=== PATIENT | male | born 1960 | race African-American/Black ===

== ENCOUNTER 2016-07-28 10:12 | Inpatient (IN) | payer OTHER ==
--- NOTE | 2016-07-28 12:19 | HP ---
CIWA Score - CIWA Score Nausea/Vomitin-No Nausea/No Vomiting Muscle Tremors: 3 Anxiety: 5 Agitation: 4-Moderately Restless Paroxysmal Sweats: 1-Minimal Palms Moist Orientation: 0-Oriented Tacttile Disturbances: 3-Moderate Itch/Numb/Burn Auditory Disturbances: 0-None Visual Disturbances: 0-None Headache: 0-None Present CIWA-Ar Total Score: 16 Admission ROS S - HPI Chief Complaint: DETOX TX FOR ALCOHOL DEPENDENCE Allergies/Adverse Reactions: Allergies Allergy/AdvReac Type Severity Reaction Status Date / Time No Known Drug Allergies Allergy Verified 07/28/16 11:30 ugandan nuts Allergy Intermediate Swelling Uncoded 07/28/16 11:30 History of Present Illness: 56 Y/O AA/MALE WITH A HX OF ALCOHOL AND COCAINE DEPENDENCE SEEKING DETOX TX. Exam Limitations: No Limitations - Ebola screening Have you traveled outside of the country in the last 21 days: No Have you had contact with anyone from an Ebola affected area: No Have you been sick,other than usual withdrawal symptoms: No Do you have a fever: No - Review of Systems Constitutional: Chills, Loss of Appetite, Night Sweats EENT: reports: Blurred Vision, Tearing, Nose Congestion, Dental Problems ( MISSING TEETH) Respiratory: reports: No Symptoms reported Cardiac: reports: Lightheadedness GI: reports: Constipated, Diarrhea, Nausea, Vomiting : reports: No Symptoms Reported Musculoskeletal: reports: Back Pain, Joint Pain, Muscle Pain Integumentary: reports: No Symptoms Reported Neuro: reports: Headache, Tremors, Unsteady Gait, Dizziness Endocrine: reports: No Symptoms Reported Hematology: reports: No Symptoms Reported Psychiatric: reports: Orientated x3, Anxious, Depressed Other Systems: Reviewed and Negative Patient History - Patient Medical History Hx Anemia: No Hx Asthma: No Hx Chronic Obstructive Pulmonary Disease (COPD): No Hx Cardiac Disorders: No Hx Hypertension: Yes (ON LISINOPRIL) Hx Hypercholesterolemia: No HX Cerebrovascular Accident: No Hx Seizures: No Hx Diabetes: No Hx Gastrointestinal Disorders: No Hx Genitourinary Disorders: Yes (GONORRHEA IN 1986 WITH TX) Hx Sexually Transmitted Disorders: No Hx Renal Disease (ESRD): No Hx Thyroid Disease: No Hx Human Immunodeficiency Virus (HIV): Yes (SINCE 01/21/2003;KALETRA AND TRUVADA ) Hx Hepatitis C: No Hx Depression: Yes (ON MED) Hx Suicide Attempt: No (DENIES) Hx Schizophrenia: Yes (ON SEROQUEL) - Patient Surgical History Past Surgical History: No Hx Neurologic Surgery: No Hx Cataract Extraction: No Hx Cardiac Surgery: No Hx Lung Surgery: No Hx Breast Surgery: No Hx Breast Biopsy: No Hx Abdominal Surgery: No Hx Appendectomy: No Hx Cholecystectomy: No Hx Genitourinary Surgery: No Hx Orthopedic Surgery: No Anesthesia Reaction: No - PPD History Previous Implant?: Yes Implanted On Prior [facility] Admission?: Yes Date: 04/14/14 PPD to be Administered?: Yes - Reproductive History Patient is a Female of Child Bearing Age (11 -55 yrs old): No (MALE) - Smoking Cessation Smoking history: Current every day smoker Have you smoked in the past 12 months: Yes Aproximately how many cigarettes per day: 12 Hx Chewing Tobacco Use: No Initiated information on smoking cessation: Yes 'Breaking Loose' booklet given: 07/28/16 - Substance & Tx. History Hx Alcohol Use: Yes (RUM/VODKA) Hx Substance Use: Yes (COCAINE) Substance Use Type: Alcohol, Cocaine - Substances Abused Alcohol Frequency: Daily Amount used: 2-3 PTS Age of first use: 15 Date of Last Use: 07/27/16 Cocaine Route: Smoking Frequency: Daily Amount used: $150-200 Age of first use: 24 Date of Last Use: 07/27/16 Family Disease History - Family Disease History Family Disease History: Other: Grandparent (HTN) Admission Physical Exam BHS - Vital Signs Vital Signs: Vital Signs - 24 hr 07/28/16 07/28/16 10:45 10:50 Temperature 97.2 F L 98.6 F Pulse Rate 84 92 H Respiratory 18 18 Rate Blood Pressure 128/84 130/90 - Physical General Appearance: Yes: Moderate Distress, Irritable, Anxious HEENTM: Yes: EOMI, Normocephalic, LUZMA, Pharynx Normal Respiratory: Yes: Chest Non-Tender, Lungs Clear, Normal Breath Sounds, No Respiratory Distress Neck: Yes: Supple, Trachea in good position Breast: Yes: Breast Exam Deferred Cardiology: Yes: Regular Rhythm, Regular Rate, S1, S2 Abdominal: Yes: Normal Bowel Sounds, Non Tender, Soft Genitourinary: Yes: Other (N/C) Back: Yes: Within Normal Limits Musculoskeletal: Yes: full range of Motion, Gait Steady Extremities: Yes: Normal Range of Motion, Non-Tender Neurological: Yes: agency service 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 II-XII NML intact, Fully Oriented, Alert Integumentary: Yes: Dry, Warm Lymphatic: Yes: Within Normal Limits - Diagnostic (1) HIV (human immunodeficiency virus infection) Current Visit: Yes Status: Chronic (2) Nicotine dependence Current Visit: Yes Status: Acute Qualifiers: Nicotine product type: cigarettes Substance use status: uncomplicated Qualified Code(s): F17.210 - Nicotine dependence, cigarettes, uncomplicated (3) Eczema Current Visit: Yes Status: Chronic (4) Essential (primary) hypertension Current Visit: Yes Status: Chronic (5) Alcohol dependence with uncomplicated withdrawal Current Visit: Yes Status: Acute (6) Cocaine dependence, uncomplicated Current Visit: Yes Status: Acute Cleared for Admission [facility] - Detox or Rehab [facility] Level of Care: Medically Managed Detox Regimen/Protocol: Librium [facility] Breath Alcohol Content Breath Alcohol Content: 0 Urine Drug Screen - Results Drug Screen Negative: No Urine Drug Screen Results: OPI-Opiates, BZO-Benzodiazepines, MTD-Methadone, OXY- Oxycodone
[2016-07-28] MEDS ORDERED: MAG HYDROX/AL HYDROX/SIMETH 30 ML UNIT-DOSE CUP PO PRN (12:28)
[2016-07-28] MEDS ORDERED: diphenhydrAMINE HCL 50 MG CAPSULE PO PRN (12:28)
[2016-07-28] MEDS ORDERED: LOPERAMIDE HCL 2 MG CAPSULE PO PRN (12:28)
[2016-07-28] MEDS ORDERED: NICOTINE POLACRILEX 4 MG GUM BUC PRN (12:28)
[2016-07-28] MEDS ORDERED: hydrOXYzine PAMOATE 25 MG CAPSULE (FP) PO PRN (12:28)
[2016-07-28] MEDS ORDERED: ACETAMINOPHEN 325 MG TABLET (FP) PO PRN (12:28)
[2016-07-28] MEDS ORDERED: IBUPROFEN 400 MG TABLET (FP) PO PRN (12:28)
[2016-07-28] MEDS ORDERED: MENTHOL/PHENOL 1 EACH UD MM PRN (12:28)
[2016-07-28] MEDS ORDERED: guaiFENesin/D-METHORPHAN HB 10 ML UNIT-DOSE CUPS PO PRN (12:28)
[2016-07-28] MEDS ORDERED: MAGNESIUM CITRATE 300 ML BOTTLE PO PRN (12:28)
[2016-07-28] MEDS ORDERED: chlordiazePOXIDE HCL 25 MG CAPSULE PO PRN (12:28)
[2016-07-28] MEDS ORDERED: MAGNESIUM HYDROX 2400MG/30ML ORAL SUSPENSION 30 ML CUP PO PRN (12:28)
[2016-07-28] MEDS ORDERED: P-EPHED 60MG/TRIPROLIDI 2.5MG TABLET PO PRN (12:28)
[2016-07-28] MEDS ORDERED: chlordiazePOXIDE HCL 25 MG CAPSULE PO ONE (14:32)
[2016-07-28] MEDS: LISINOPRIL 10 MG TABLET (FP) PO SCH (15:14)
[2016-07-28] MEDS: FLUOCINONIDE 0.05% TOP OINT (60 GM TUBE) TP SCH ×2 (15:14→22:23)
[2016-07-28] MEDS: RITONAVIR/LOPINAVIR 50MG/200MG 1 COMBO TABLET PO SCH ×2 (15:15→22:23)
[2016-07-28] MEDS: EMTRICITABINE 200MG/TENOFOVIR 300MG PO SCH (15:15)
[2016-07-28] MEDS: NICOTINE 21 MG/24 HOURS TOPICAL PATCH TD SCH (15:15)
[2016-07-28 15:36] VITALS: BMI 30.8
--- NOTE | 2016-07-28 15:37 | CONSULT ---
[facility] Psychiatric Consult - Data Date of interview: 07/28/16 Admission source: [facility] Identifying data: Readmission to [facility] for this 56 y/o AA male,from descent,seeking detox treatment for alcohol,cocaine and phencyclidine dependence.Patient is single without children,domiciled,unemployed and supported on [employer] funds. Substance Abuse History: - Smoking Cessation. Smoking history: Current every day smoker. Have you smoked in the past 12 months: Yes. Aproximately how many cigarettes per day: 12. Hx Chewing Tobacco Use: No. Initiated information on smoking cessation: Yes. 'Breaking Loose' booklet given: 07/28/16. - Substance & Tx. History. Hx Alcohol Use: Yes (RUM/VODKA). Hx Substance Use: Yes (COCAINE ). Substance Use Type: Alcohol, Cocaine. - Substances Abused. Alcohol. Frequency: Daily. Amount used: 2-3 PTS. Age of first use: 15. Date of Last Use: 07/27/16. Cocaine. Route: Smoking. Frequency: Daily. Amount used: $ 150-200. Age of first use: 24. Date of Last Use: 07/27/16. Confirmed by patient. Medical History: HIV infection since 2002 (on ART agents),hypertension and a history of treatment for gonorrhea. Psychiatric History: No history of psychiatric hospitalizations but current OPD care at the [facility] mental health clinic.Mr Ott endorses the diagnosis of Schizoaffective Disorder.Prescribed seroquel 50 mg/hs.Patient denies history of suicide attempts. Physical/Sexual Abuse/Trauma History: Patient denies. Additional Comment: Urine Drug Screen Results: OPI-Opiates, BZO-Benzodiazepines , MTD-Methadone, OXY-Oxycodone.Noted. Mental Status Exam - Mental Status Exam Alert and Oriented to: Time, Place, Person Cognitive Function: Good Patient Appearance: Well Groomed (short,overweight ; left ear : two metallic rings) Mood: Hopeful, Euthymic Affect: Appropriate, Normal Range Patient Behavior: Fatigued, Appropriate (friendly), Cooperative Speech Pattern: Clear, Appropriate Voice Loudness: Normal Thought Process: Goal Oriented Thought Disorder: Not Present Hallucinations: Denies Suicidal Ideation: Denies Homicidal Ideation: Denies Insight/Judgement: Poor Appetite: Fair Muscle strength/Tone: Normal Gait/Station: Normal Psychiatric Findings - Problem List ([place] 1, 2,3) (1) Alcohol dependence with uncomplicated withdrawal Current Visit: Yes Status: Acute (2) Cocaine dependence, uncomplicated Current Visit: Yes Status: Acute (3) Nicotine dependence Current Visit: Yes Status: Acute Qualifiers: Nicotine product type: cigarettes Substance use status: uncomplicated Qualified Code(s): F17.210 - Nicotine dependence, cigarettes, uncomplicated (4) Substance induced mood disorder Current Visit: Yes Status: Acute (5) Schizoaffective disorder Current Visit: Yes Status: Chronic Comment: Self-report. (6) Eczema Current Visit: Yes Status: Chronic (7) Essential (primary) hypertension Current Visit: Yes Status: Chronic (8) HIV (human immunodeficiency virus infection) Current Visit: Yes Status: Chronic - Initial Treatment Plan Initial Treatment Plan: Psychoeducation.Detoxification.Patient requests that seroquel be held at this time.Reason : fear of oversedation and falls.He maintains his decision in spite of this marketing underwriter's encouragement and reassurance.Observation.
[2016-07-28] MEDS: chlordiazePOXIDE HCL 25 MG CAPSULE PO SCH ×2 (17:17→22:23)
[2016-07-28 18:15] LABS: URINE APPEARANCE CLEAR; URINE BILIRUBIN NEGATIVE (NEGATIVE); URINE BLOOD NEGATIVE (NEGATIVE); URINE COLOR YELLOW; URINE GLUCOSE (UA) NEGATIVE (NEGATIVE); URINE KETONE NEGATIVE (NEGATIVE); URINE LEUK ESTERASE NEGATIVE (NEGATIVE); URINE NITRITE NEGATIVE (NEGATIVE); URINE PROTEIN 2+ (NEGATIVE); URINE UROBILINOGEN NEGATIVE E.U./dl (0.2-1.0)
[2016-07-28 18:19] LABS: URINE MUCUS RARE; URINE RBC 2 /hpf (0-3); URINE WBC 5 /hpf (3-5)
[2016-07-28] MEDS: THIAMINE HCL 100 MG TABLET (FP) PO SCH (22:23)
[2016-07-29] MEDS: chlordiazePOXIDE HCL 25 MG CAPSULE PO SCH ×4 (05:43→22:15)
[2016-07-29 10:18] LABS: MCH 31.6 pg (25.7-33.7); MEAN CELL VOLUME 95.8 fl (80-96); MEAN PLT VOLUME 9.8 fl (7.5-11.1); PLATELET COUNT 257 K/MM3 (134-434); RDW 13.3 % (11.9-15.9); WHITE BLOOD COUNT 9.1 K/mm3 (4.0-10.0)
[2016-07-29] MEDS: LISINOPRIL 10 MG TABLET (FP) PO SCH (10:35)
[2016-07-29] MEDS: RITONAVIR/LOPINAVIR 50MG/200MG 1 COMBO TABLET PO SCH ×2 (10:35→22:15)
[2016-07-29] MEDS: EMTRICITABINE 200MG/TENOFOVIR 300MG PO SCH (10:35)
[2016-07-29] MEDS: FLUOCINONIDE 0.05% TOP OINT (60 GM TUBE) TP SCH ×2 (10:35→22:15)
[2016-07-29] MEDS: PRENATAL VITAMINS W/ FOLIC ACID TABLET (FP) PO SCH (10:35)
[2016-07-29] MEDS: NICOTINE 21 MG/24 HOURS TOPICAL PATCH TD SCH (10:37)
[2016-07-29 11:09] LABS: ALBUMIN 3.7 g/dl (3.4-5.0); BILIRUBIN,TOTAL 0.4 mg/dL (0.2-1.0); CALCIUM 9.6 mg/dL (8.5-10.1); COCKROFT - GAULT 79.23; CREATININE 1.3 mg/dL (0.7-1.3); TOT PROT 7.3 g/dl (6.4-8.2)
--- NOTE | 2016-07-29 12:22 | PN ---
S CIWA - CIWA Score Nausea/Vomitin-No Nausea/No Vomiting Muscle Tremors: 4-Moderate,w/Arms Extend Anxiety: 4-Mod. Anxious/Guarded Agitation: 3 Paroxysmal Sweats: 3 Orientation: 0-Oriented Tacttile Disturbances: 0-None Auditory Disturbances: 0-None Visual Disturbances: 0-None Headache: 0-None Present CIWA-Ar Total Score: 14 BHS Progress Note (SOAP) Subjective: Anxiety,tremors,sweating,interrupted sleep,restless Objective: 07/29/16 12:21 Vital Signs - 8 hr 07/29/16 07/29/16 06:25 09:28 Temperature 95.9 F L 97.5 F L Pulse Rate 60 67 Respiratory 16 20 Rate Blood Pressure 130/84 148/85 Laboratory Tests 07/28/16 07/29/16 07/29/16 14:00 06:00 06:00 WBC 9.1 RBC 5.16 Hgb 16.3 D Hct 49.5 H MCV 95.8 MCHC 33.0 RDW 13.3 Plt Count 257 D MPV 9.8 Sodium 141 Potassium 3.9 Chloride 104 Carbon Dioxide 26 Anion Gap 11 BUN 14 Creatinine 1.3 D Creat Clearance w eGFR 56.90 Random Glucose 101 Calcium 9.6 Total Bilirubin 0.4 AST 25 ALT 35 D Alkaline Phosphatase 131 H D Total Protein 7.3 Albumin 3.7 D Urine Color Yellow Urine Appearance Clear Urine pH 5.0 Ur Specific [place] 1.021 Urine Protein 2+ H Urine Glucose (UA) Negative Urine Ketones Negative Urine Blood Negative Urine Nitrite Negative Urine Bilirubin Negative Urine Urobilinogen Negative Ur Leukocyte Esterase Negative Urine RBC 2 Urine WBC 5 Ur Epithelial Cells Rare Urine Mucus Rare labs noted Assessment: 07/29/16 12:22 Withdrawal sx. Plan: Continue detox
[2016-07-29] MEDS: THIAMINE HCL 100 MG TABLET (FP) PO SCH (22:15)
[2016-07-30] MEDS: chlordiazePOXIDE HCL 25 MG CAPSULE PO SCH ×2 (06:02→10:55)
--- NOTE | 2016-07-30 08:28 | EKG ---
Test Reason : Blood Pressure : / mmHG Vent. Rate : 077 BPM Atrial Rate : 077 BPM P-R Int : 168 ms QRS Dur : 088 ms QT Int : 356 ms P-R-T Axes : 073 070 052 degrees QTc Int : 402 ms NORMAL SINUS RHYTHM NORMAL ECG NO PREVIOUS ECGS AVAILABLE Confirmed by KJ TREVINO MD ([id number]) on 07/30/2016 8:27:42 AM Referred By: Confirmed By:KJ TREVINO MD
[2016-07-30] MEDS: PRENATAL VITAMINS W/ FOLIC ACID TABLET (FP) PO SCH (10:52)
[2016-07-30] MEDS: LISINOPRIL 10 MG TABLET (FP) PO SCH (10:53)
[2016-07-30] MEDS: RITONAVIR/LOPINAVIR 50MG/200MG 1 COMBO TABLET PO SCH ×2 (10:53→22:18)
[2016-07-30] MEDS: FLUOCINONIDE 0.05% TOP OINT (60 GM TUBE) TP SCH ×2 (10:53→22:18)
[2016-07-30] MEDS: EMTRICITABINE 200MG/TENOFOVIR 300MG PO SCH (10:53)
[2016-07-30] MEDS: NICOTINE 21 MG/24 HOURS TOPICAL PATCH TD SCH (10:54)
--- NOTE | 2016-07-30 13:26 | PN ---
S CIWA - CIWA Score Nausea/Vomitin Muscle Tremors: 3 Anxiety: 4-Mod. Anxious/Guarded Agitation: 3 Paroxysmal Sweats: 3 Orientation: 0-Oriented Tacttile Disturbances: 2-Mild Itch/Numbness/Burn Auditory Disturbances: 0-None Visual Disturbances: 2-Mild Sensitivity Headache: 0-None Present CIWA-Ar Total Score: 19 BHS Progress Note (SOAP) Subjective: Tremors, Sweating, Stomach Cramping. Objective: PT. A & O X 3, OBSERVED AMBULATING ON UNIT. PT. DENIES CHEST PAIN. 07/30/16 13:24 Vital Signs Temperature 97.7 F 07/30/16 09:54 Pulse Rate 85 07/30/16 09:54 Respiratory Rate 20 07/30/16 09:54 Blood Pressure 155/91 07/30/16 09:54 O2 Sat by Pulse Oximetry (%) Laboratory Last Values WBC 9.1 K/mm3 (4.0-10.0) 07/29/16 06:00 RBC 5.16 M/mm3 (4.00-5.60) 07/29/16 06:00 Hgb 16.3 GM/dL (11.7-16.9) D 07/29/16 06:00 Hct 49.5 % (35.4-49) H 07/29/16 06:00 MCV 95.8 fl (80-96) 07/29/16 06:00 MCHC 33.0 g/dl (32.0-35.9) 07/29/16 06:00 RDW 13.3 % (11.9-15.9) 07/29/16 06:00 Plt Count 257 K/MM3 (134-434) D 07/29/16 06:00 MPV 9.8 fl (7.5-11.1) 07/29/16 06:00 Sodium 141 mmol/L (136-145) 07/29/16 06:00 Potassium 3.9 mmol/L (3.5-5.1) 07/29/16 06:00 Chloride 104 mmol/L (98-107) 07/29/16 06:00 Carbon Dioxide 26 mmol/L (21-32) 07/29/16 06:00 Anion Gap 11 (8-16) 07/29/16 06:00 BUN 14 mg/dL (7-18) 07/29/16 06:00 Creatinine 1.3 mg/dL (0.7-1.3) D 07/29/16 06:00 Creat Clearance w eGFR 56.90 (>60) 07/29/16 06:00 Random Glucose 101 mg/dL (74-106) 07/29/16 06:00 Calcium 9.6 mg/dL (8.5-10.1) 07/29/16 06:00 Total Bilirubin 0.4 mg/dL (0.2-1.0) 07/29/16 06:00 AST 25 U/L (15-37) 07/29/16 06:00 ALT 35 U/L (12-78) D 07/29/16 06:00 Alkaline Phosphatase 131 U/L (45-117) H D 07/29/16 06:00 Total Protein 7.3 g/dl (6.4-8.2) 07/29/16 06:00 Albumin 3.7 g/dl (3.4-5.0) D 07/29/16 06:00 Urine Color Yellow 07/28/16 14:00 Urine Appearance Clear 07/28/16 14:00 Urine pH 5.0 (5.0-8.0) 07/28/16 14:00 Ur Specific [place] 1.021 (1.001-1.035) 07/28/16 14:00 Urine Protein 2+ (NEGATIVE) H 07/28/16 14:00 Urine Glucose (UA) Negative (NEGATIVE) 07/28/16 14:00 Urine Ketones Negative (NEGATIVE) 07/28/16 14:00 Urine Blood Negative (NEGATIVE) 07/28/16 14:00 Urine Nitrite Negative (NEGATIVE) 07/28/16 14:00 Urine Bilirubin Negative (NEGATIVE) 07/28/16 14:00 Urine Urobilinogen Negative E.U./dl (0.2-1.0) 07/28/16 14:00 Ur Leukocyte Esterase Negative (NEGATIVE) 07/28/16 14:00 Urine RBC 2 /hpf (0-3) 07/28/16 14:00 Urine WBC 5 /hpf (3-5) 07/28/16 14:00 Ur Epithelial Cells Rare /hpf (FEW) 07/28/16 14:00 Urine Mucus Rare 07/28/16 14:00 RPR Titer Nonreactive (NONREACTIVE) 07/29/16 06:00 LABS NOTED. 07/30/16 13:26 Assessment: 07/30/16 13:25 WITHDRAWAL SYMPTOMS. Plan: CONTINUE DETOX. ADVISED PATIENT TO FOLLOW-UP WITH [employer] FUNCTIONAL TESTER / REHAB MEDICAL PROVIDER AFTER DISCHARGE FROM DETOX [facility] GENERAL MEDICAL ASSESSMENT AND FOR ABNORMAL ADMISSION LAB VALUES.
[2016-07-30] MEDS: chlordiazePOXIDE 5 MG CAPSULE PO SCH ×2 (17:20→22:19)
[2016-07-30] MEDS: THIAMINE HCL 100 MG TABLET (FP) PO SCH (22:19)
[2016-07-31] MEDS: chlordiazePOXIDE 5 MG CAPSULE PO SCH ×2 (05:51→10:46)
[2016-07-31] MEDS: LISINOPRIL 10 MG TABLET (FP) PO SCH (10:46)
[2016-07-31] MEDS: RITONAVIR/LOPINAVIR 50MG/200MG 1 COMBO TABLET PO SCH ×2 (10:46→22:31)
[2016-07-31] MEDS: PRENATAL VITAMINS W/ FOLIC ACID TABLET (FP) PO SCH (10:47)
[2016-07-31] MEDS: NICOTINE 21 MG/24 HOURS TOPICAL PATCH TD SCH (10:47)
[2016-07-31] MEDS: EMTRICITABINE 200MG/TENOFOVIR 300MG PO SCH (10:47)
[2016-07-31] MEDS: FLUOCINONIDE 0.05% TOP OINT (60 GM TUBE) TP SCH ×2 (10:47→22:31)
--- NOTE | 2016-07-31 15:09 | PN ---
BHS Progress Note (SOAP) Subjective: Sweating,interrupted sleep,restless Objective: 07/31/16 15:08 Vital Signs - 8 hr 07/31/16 09:18 Temperature 97.0 F L Pulse Rate 72 Respiratory 18 Rate Blood Pressure 116/81 Laboratory Last Values WBC 9.1 K/mm3 (4.0-10.0) 07/29/16 06:00 RBC 5.16 M/mm3 (4.00-5.60) 07/29/16 06:00 Hgb 16.3 GM/dL (11.7-16.9) D 07/29/16 06:00 Hct 49.5 % (35.4-49) H 07/29/16 06:00 MCV 95.8 fl (80-96) 07/29/16 06:00 MCHC 33.0 g/dl (32.0-35.9) 07/29/16 06:00 RDW 13.3 % (11.9-15.9) 07/29/16 06:00 Plt Count 257 K/MM3 (134-434) D 07/29/16 06:00 MPV 9.8 fl (7.5-11.1) 07/29/16 06:00 Sodium 141 mmol/L (136-145) 07/29/16 06:00 Potassium 3.9 mmol/L (3.5-5.1) 07/29/16 06:00 Chloride 104 mmol/L (98-107) 07/29/16 06:00 Carbon Dioxide 26 mmol/L (21-32) 07/29/16 06:00 Anion Gap 11 (8-16) 07/29/16 06:00 BUN 14 mg/dL (7-18) 07/29/16 06:00 Creatinine 1.3 mg/dL (0.7-1.3) D 07/29/16 06:00 Creat Clearance w eGFR 56.90 (>60) 07/29/16 06:00 Random Glucose 101 mg/dL (74-106) 07/29/16 06:00 Calcium 9.6 mg/dL (8.5-10.1) 07/29/16 06:00 Total Bilirubin 0.4 mg/dL (0.2-1.0) 07/29/16 06:00 AST 25 U/L (15-37) 07/29/16 06:00 ALT 35 U/L (12-78) D 07/29/16 06:00 Alkaline Phosphatase 131 U/L (45-117) H D 07/29/16 06:00 Total Protein 7.3 g/dl (6.4-8.2) 07/29/16 06:00 Albumin 3.7 g/dl (3.4-5.0) D 07/29/16 06:00 Urine Color Yellow 07/28/16 14:00 Urine Appearance Clear 07/28/16 14:00 Urine pH 5.0 (5.0-8.0) 07/28/16 14:00 Ur Specific [place] 1.021 (1.001-1.035) 07/28/16 14:00 Urine Protein 2+ (NEGATIVE) H 07/28/16 14:00 Urine Glucose (UA) Negative (NEGATIVE) 07/28/16 14:00 Urine Ketones Negative (NEGATIVE) 07/28/16 14:00 Urine Blood Negative (NEGATIVE) 07/28/16 14:00 Urine Nitrite Negative (NEGATIVE) 07/28/16 14:00 Urine Bilirubin Negative (NEGATIVE) 07/28/16 14:00 Urine Urobilinogen Negative E.U./dl (0.2-1.0) 07/28/16 14:00 Ur Leukocyte Esterase Negative (NEGATIVE) 07/28/16 14:00 Urine RBC 2 /hpf (0-3) 07/28/16 14:00 Urine WBC 5 /hpf (3-5) 07/28/16 14:00 Ur Epithelial Cells Rare /hpf (FEW) 07/28/16 14:00 Urine Mucus Rare 07/28/16 14:00 RPR Titer Nonreactive (NONREACTIVE) 07/29/16 06:00 labs noted Assessment: 07/31/16 15:09 Withdrawal sx. Plan: Continue detox
[2016-07-31] MEDS: chlordiazePOXIDE HCL 10 MG CAPSULE PO SCH ×2 (17:56→22:31)
[2016-07-31] MEDS: THIAMINE HCL 100 MG TABLET (FP) PO SCH (22:31)
[2016-08-01] MEDS: chlordiazePOXIDE HCL 10 MG CAPSULE PO SCH (05:30)
[2016-08-01 06:29] VITALS: BP 118/82; PULSE 74; TEMP 96.2
--- NOTE | 2016-08-01 08:59 | DS ---
[facility] Detox Discharge Summary Admission Date: 07/28/16 Discharge Date: 08/01/16 - History Present History: Alcohol Dependence, Cocaine Dependence Additional Comments: DETOX COMPLETED.ALERT O X 3. NAD. Pertinent Past History: HIV+ HTN ECZEMA - Physical Exam Results Vital Signs: Vital Signs Temperature 96.2 F L 08/01/16 06:29 Pulse Rate 74 08/01/16 06:29 Respiratory Rate 16 08/01/16 06:29 Blood Pressure 118/82 08/01/16 06:29 O2 Sat by Pulse Oximetry (%) Pertinent Admission Physical Exam Findings: WITHDRAWAL SX - Treatment Hospital Course: Detox Protocol Followed, Detoxed Safely, Responded well, Discharged Condition Good - Medication Discharge Medications: Ambulatory Orders Emtricitabine/Tenofovir [Truvada -] 1 tab PO DAILY #30 tablet 04/16/14 Fluocinonide 0.05% Oin [Lidex 0.05% Ointment -] 1 applic TP BID 30 Days Lisinopril [Prinivil] 10 mg PO DAILY #30 tablet 04/16/14 Lopinavir/Ritonavir [Kaletra 200-50 mg Tablet] 2 each PO BID #30 04/16/14 Quetiapine Fumarate "Xr" [Seroquel XR] 50 mg PO HS 07/28/16 - Diagnosis (1) HIV (human immunodeficiency virus infection) Current Visit: Yes Status: Chronic (2) Nicotine dependence Current Visit: Yes Status: Acute Qualifiers: Nicotine product type: cigarettes Substance use status: in withdrawal Qualified Code(s): F17.213 - Nicotine dependence, cigarettes, with withdrawal (3) Eczema Current Visit: Yes Status: Chronic (4) Essential (primary) hypertension Current Visit: Yes Status: Chronic (5) Alcohol dependence with uncomplicated withdrawal Current Visit: Yes Status: Acute (6) Cocaine dependence, uncomplicated Current Visit: Yes Status: Acute - AMA Did Patient Leave Against Medical Advice: No
== END 2016-08-01 09:10 | disposition home or self-care (01) | DRG 774 ==
LOC: YASAS 10:12 → Y3N 13:40
PROVIDERS: ADMIT Internal Medicine; ATTEND Internal Medicine
PROC: HZ2ZZZZ Detoxification Services for Substance Abuse Treatment (ICD-10-PCS; principal; 2016-08-01)
DX: F10.230 Alcohol dependence with withdrawal, uncomplicated (principal); F14.20 Cocaine dependence, uncomplicated; F17.210 Nicotine dependence, cigarettes, uncomplicated; F25.9 Schizoaffective disorder, unspecified; F19.24 Other psychoactive substance dependence with psychoactive substance-induced mood disorder; I10 Essential (primary) hypertension; L30.9 Dermatitis, unspecified; Z21 Asymptomatic human immunodeficiency virus [HIV] infection status
CPT/HCPCS: 36415; 80053; 81003; 81015; 85027; 86593; 93005; 93010

== ENCOUNTER 2016-12-26 10:51 | Inpatient (IN) | payer OTHER ==
[2016-12-26 16:20] VITALS: BMI 30.5
--- NOTE | 2016-12-26 16:36 | HP ---
CIWA Score - CIWA Score Nausea/Vomitin-Mild Nausea/No Vomiting Muscle Tremors: 4-Moderate,w/Arms Extend Anxiety: 4-Mod. Anxious/Guarded Agitation: 4-Moderately Restless Paroxysmal Sweats: 1-Minimal Palms Moist Orientation: 0-Oriented Tacttile Disturbances: 0-None Auditory Disturbances: 0-None Visual Disturbances: 0-None Headache: 0-None Present CIWA-Ar Total Score: 14 Admission ROS BHS - HPI Chief Complaint: withdrawal sx Allergies/Adverse Reactions: Allergies Allergy/AdvReac Type Severity Reaction Status Date / Time No Known Drug Allergies Allergy Verified 07/28/16 15:44 trinidadian nuts Allergy Intermediate Swelling Uncoded 07/28/16 15:44 History of Present Illness: 56 years old male with long history of alcohol cocaine nicotine dependence has hiv hypertension hepatitis c eczema and schizoaffective disorder is admitted to detox Exam Limitations: No Limitations - Ebola screening Have you traveled outside of the country in the last 21 days: No Have you had contact with anyone from an Ebola affected area: No Have you been sick,other than usual withdrawal symptoms: No Do you have a fever: No - Review of Systems Constitutional: Changes in sleep, Weight Stable EENT: reports: No Symptoms Reported Respiratory: reports: No Symptoms reported Cardiac: reports: No Symptoms Reported GI: reports: Nausea, Poor Fluid Intake, Abdominal cramping : reports: No Symptoms Reported Musculoskeletal: reports: No Symptoms Reported Integumentary: reports: Change in Color (eczema general body) Neuro: reports: Tremors Endocrine: reports: No Symptoms Reported Hematology: reports: No Symptoms Reported Psychiatric: reports: No Sypmtoms Reported, Judgement Intact, Orientated x3, Anxious, Depressed Other Systems: Reviewed and Negative Patient History - Patient Medical History Hx Anemia: No Hx Asthma: No Hx Chronic Obstructive Pulmonary Disease (COPD): No Hx Cancer: No Hx Cardiac Disorders: No Hx Congestive Heart Failure: No Hx Hypertension: Yes (ON LISINOPRIL) Hx Hypercholesterolemia: No Hx Pacemaker: No HX Cerebrovascular Accident: No Hx Seizures: No Hx Dementia: No Hx Diabetes: No Hx Gastrointestinal Disorders: No Hx Liver Disease: No Hx Genitourinary Disorders: Yes (GONORRHEA IN 1986 WITH TX) Hx Sexually Transmitted Disorders: No Hx Renal Disease (ESRD): No Hx Thyroid Disease: No Hx Human Immunodeficiency Virus (HIV): Yes (SINCE 01/21/2003;KALETRA AND TRUVADA ) Hx Hepatitis C: No Hx Depression: No (ON MED) Hx Suicide Attempt: No (DENIES) Hx Bipolar Disorder: No Hx Schizophrenia: Yes (ON SEROQUEL) - Patient Surgical History Past Surgical History: No Hx Neurologic Surgery: No Hx Cataract Extraction: No Hx Cardiac Surgery: No Hx Lung Surgery: No Hx Breast Surgery: No Hx Breast Biopsy: No Hx Abdominal Surgery: No Hx Appendectomy: No Hx Cholecystectomy: No Hx Genitourinary Surgery: No Hx Orthopedic Surgery: No - PPD History Previous Implant?: Yes Documented Results: Negative w/proof Implanted On Prior [facility] Admission?: Yes Date: 07/30/16 PPD to be Administered?: No - Smoking Cessation Smoking history: Current every day smoker Have you smoked in the past 12 months: Yes Aproximately how many cigarettes per day: 12 Cigars Per Day: 0 Hx Chewing Tobacco Use: No Initiated information on smoking cessation: Yes 'Breaking Loose' booklet given: 12/26/16 - Substance & Tx. History Hx Alcohol Use: Yes Hx Substance Use: Yes Substance Use Type: Alcohol, Cocaine Hx Substance Use Treatment: Yes (07[facility]28-08/01/[facility] - Substances Abused Alcohol Route: Oral Frequency: Daily Amount used: pint volka Age of first use: 14 Date of Last Use: 12/26/16 Family Disease History - Family Disease History Family Disease History: Other: Grandparent (HTN), Father (), Mother ( ) Admission Physical Exam [facility] - Vital Signs Vital Signs: Vital Signs - 24 hr 12/26/16 16:08 Temperature 97.3 F L Pulse Rate 93 H Respiratory 18 Rate Blood Pressure 127/83 - Physical General Appearance: Yes: Appropriately Dressed, Mild Distress, Obese, Tremorous , Irritable, Sweating, Anxious HEENTM: Yes: Hearing grossly Normal, Normal ENT Inspection, Normocephalic, Normal Voice Respiratory: Yes: Chest Non-Tender, Lungs Clear, Normal Breath Sounds, No Respiratory Distress, No Accessory Muscle Use Neck: Yes: Supple, Trachea in good position Breast: Yes: Breasts Symetrical Cardiology: Yes: Regular Rhythm, S1, S2, Tachycardia (had cocaine prior to [facility] arrival) Abdominal: Yes: Normal Bowel Sounds, Soft Genitourinary: Yes: Within Normal Limits Back: Yes: Normal Inspection Musculoskeletal: Yes: full range of Motion, Gait Steady Extremities: Yes: Normal Inspection, Normal Range of Motion, Non-Tender, Tremors Neurological: Yes: Fully Oriented, Alert, Motor Strength 5/5, Normal Response, Depressed Affect Integumentary: Yes: Warm Lymphatic: Yes: Within Normal Limits - Diagnostic (1) Alcohol dependence with uncomplicated withdrawal Current Visit: Yes Status: Acute (2) Cocaine dependence, uncomplicated Current Visit: Yes Status: Chronic (3) Nicotine dependence Current Visit: Yes Status: Acute Qualifiers: Nicotine product type: cigarettes Substance use status: in withdrawal Qualified Code(s): F17.213 - Nicotine dependence, cigarettes, with withdrawal (4) Eczema Current Visit: Yes Status: Chronic Qualifiers: Eczema type: flexural Qualified Code(s): L20.82 - Flexural eczema (5) Essential (primary) hypertension Current Visit: Yes Status: Chronic (6) HIV (human immunodeficiency virus infection) Current Visit: Yes Status: Chronic (7) Schizoaffective disorder Current Visit: Yes Status: Suspected Qualifiers: Schizoaffective disorder type: unspecified Qualified Code(s): F25.9 - Schizoaffective disorder, unspecified Comment: Self-report. Cleared for Admission [facility] - Detox or Rehab [facility] Level of Care: Medically Managed Detox Regimen/Protocol: Librium [facility] Breath Alcohol Content Breath Alcohol Content: 0 Urine Drug Screen - Results Drug Screen Negative: No Urine Drug Screen Results: FILIPE-Cocaine
[2016-12-26] MEDS ORDERED: NICOTINE POLACRILEX 4 MG GUM BC PRN (16:40)
[2016-12-26] MEDS ORDERED: IBUPROFEN 400 MG TABLET (FP) PO PRN (16:40)
[2016-12-26] MEDS ORDERED: hydrOXYzine PAMOATE 50 MG CAPSULE (FP) PO PRN (16:40)
[2016-12-26] MEDS ORDERED: diphenhydrAMINE HCL 50 MG CAPSULE PO PRN (16:40)
[2016-12-26] MEDS ORDERED: guaiFENesin/D-METHORPHAN HB 10 ML UNIT-DOSE CUPS PO PRN (16:40)
[2016-12-26] MEDS ORDERED: MAGNESIUM HYDROX 2400MG/30ML ORAL SUSPENSION 30 ML CUP PO PRN (16:40)
[2016-12-26] MEDS ORDERED: P-EPHED 60MG/TRIPROLIDI 2.5MG TABLET PO PRN (16:40)
[2016-12-26] MEDS ORDERED: MAGNESIUM CITRATE 300 ML BOTTLE PO PRN (16:40)
[2016-12-26] MEDS ORDERED: MENTHOL/PHENOL 1 EACH UD MM PRN (16:40)
[2016-12-26] MEDS ORDERED: chlordiazePOXIDE HCL 25 MG CAPSULE PO PRN (16:40)
[2016-12-26] MEDS ORDERED: LOPERAMIDE HCL 2 MG CAPSULE PO PRN (16:40)
[2016-12-26] MEDS ORDERED: MAG HYDROX/AL HYDROX/SIMETH 30 ML UNIT-DOSE CUP PO PRN (16:40)
[2016-12-26] MEDS ORDERED: ACETAMINOPHEN 325 MG TABLET (FP) PO PRN (16:40)
[2016-12-26 21:54] LABS: URINE APPEARANCE CLEAR; URINE BILIRUBIN NEGATIVE (NEGATIVE); URINE BLOOD NEGATIVE (NEGATIVE); URINE COLOR LT. YELLOW; URINE GLUCOSE (UA) NEGATIVE (NEGATIVE); URINE KETONE NEGATIVE (NEGATIVE); URINE LEUK ESTERASE NEGATIVE (NEGATIVE); URINE NITRITE NEGATIVE (NEGATIVE); URINE UROBILINOGEN 0.2 mg/dL (0.2-1.0)
[2016-12-26 21:59] LABS: URINE PROTEIN 1+ (NEGATIVE)
[2016-12-26 22:15] LABS: URINE HYALINE CAST 1 /lpf; URINE MUCUS RARE; URINE WBC 1 /hpf (3-5)
[2016-12-26] MEDS: RITONAVIR/LOPINAVIR 50MG/200MG 1 COMBO TABLET PO SCH (22:58)
[2016-12-26] MEDS: THIAMINE HCL 100 MG TABLET (FP) PO SCH (22:58)
[2016-12-26] MEDS: chlordiazePOXIDE HCL 25 MG CAPSULE PO SCH (23:00)
[2016-12-26] MEDS: FLUOCINONIDE 0.05% TOPICAL SOLUTION (60 ML BOTTLE) TP SCH (23:01)
[2016-12-27] MEDS: chlordiazePOXIDE HCL 25 MG CAPSULE PO SCH ×4 (06:18→22:13)
[2016-12-27] MEDS: FLUOCINONIDE 0.05% TOPICAL SOLUTION (60 ML BOTTLE) TP SCH (06:21)
--- NOTE | 2016-12-27 09:50 | EKG ---
Test Reason : Blood Pressure : / mmHG Vent. Rate : 085 BPM Atrial Rate : 085 BPM P-R Int : 162 ms QRS Dur : 088 ms QT Int : 356 ms P-R-T Axes : 078 074 060 degrees QTc Int : 423 ms NORMAL SINUS RHYTHM NORMAL ECG WHEN COMPARED WITH ECG OF 28-JUL-2016 14:23, NO SIGNIFICANT CHANGE WAS FOUND Confirmed by MD SHERRY, CARLOZ ([id number]) on 12/27/2016 9:49:59 AM Referred By: Confirmed By:CARLOZ POWELL MD
[2016-12-27] MEDS ORDERED: LISINOPRIL 10 MG TABLET (FP) PO SCH (10:00)
[2016-12-27] MEDS: RITONAVIR/LOPINAVIR 50MG/200MG 1 COMBO TABLET PO SCH ×2 (10:16→22:14)
[2016-12-27] MEDS: EMTRICITABINE 200MG/TENOFOVIR 300MG PO SCH (10:16)
[2016-12-27] MEDS: PRENATAL VITAMINS W/ FOLIC ACID TABLET (FP) PO SCH (10:16)
[2016-12-27] MEDS: NICOTINE 21 MG/24 HOURS TOPICAL PATCH TD SCH (10:17)
[2016-12-27 10:31] LABS: MCH 32.2 pg (25.7-33.7); MCHC 33.5 g/dl (32.0-35.9); MEAN CELL VOLUME 96.2 fl (80-96); MEAN PLT VOLUME 9.5 fl (7.5-11.1); PLATELET COUNT 252 K/MM3 (134-434); RDW 14.3 % (11.9-15.9); WHITE BLOOD COUNT 12.3 K/mm3 (4.0-10.0)
[2016-12-27 11:46] LABS: ALBUMIN 3.6 g/dl (3.4-5.0); ALK PHOS 111 U/L (45-117); ANION GAP 11 (8-16); BILIRUBIN,TOTAL 0.4 mg/dL (0.2-1.0); CO2 22 mmol/L (21-32); CREATININE 1.4 mg/dL (0.7-1.3); GLUCOSE,RANDOM 77 mg/dL (74-106); SGOT/AST 29 U/L (15-37); SGPT/ALT 33 U/L (12-78); TOT PROT 7.3 g/dl (6.4-8.2)
--- NOTE | 2016-12-27 12:42 | CONSULT ---
[facility] Psychiatric Consult - Data Date of interview: 12/27/16 Admission source: Self-referred Identifying data: Mr Ott is a 56 years old single Black male, unemployed on [employer], living in a room seeking detox treatment for alcohol Substance Abuse History: Reports history of alcohol use. He started drinking alcohol at age 14, consumes one pint of vodka daily. Last drink on 12/26/16 Medical History: Significant for HIV infection since 2002 (on ART agents), hypertension, hep C, eczema and a history of treatment for gonorrhea in 1986. Psychiatric History: Reports being diagnosed with Schizoaffective Disorder and currently receives OPD care at [facility]. Reports being prescribed Seroquel 50 mg po HS. Denies history of previous psychiatric hospitalization or suicidal attempt Physical/Sexual Abuse/Trauma History: Denies history of verbal, physical or sexual abuse as well as DV relationship Additional Comment: Reports history of multiple previous arrests including 5 felony convictions. No parole/probation at present Mental Status Exam - Mental Status Exam Alert and Oriented to: Time, Place, Person Cognitive Function: Fair Patient Appearance: Well Groomed Mood: Hopeful, Euthymic Affect: Appropriate Patient Behavior: Cooperative Speech Pattern: Clear Voice Loudness: Normal Thought Process: Intact, Goal Oriented Thought Disorder: Not Present Hallucinations: Denies Suicidal Ideation: Denies Homicidal Ideation: Denies Insight/Judgement: Poor Sleep: Well Appetite: Good Muscle strength/Tone: Normal Gait/Station: Normal Psychiatric Findings - Problem List ([place] 1, 2,3) (1) Schizoaffective disorder Current Visit: Yes Status: Suspected Qualifiers: Schizoaffective disorder type: unspecified Qualified Code(s): F25.9 - Schizoaffective disorder, unspecified Comment: Self-report. (2) Alcohol dependence with uncomplicated withdrawal Current Visit: Yes Status: Acute (3) Nicotine dependence Current Visit: Yes Status: Acute Qualifiers: Nicotine product type: cigarettes Substance use status: in withdrawal Qualified Code(s): F17.213 - Nicotine dependence, cigarettes, with withdrawal (4) Eczema Current Visit: Yes Status: Chronic Qualifiers: Eczema type: flexural Qualified Code(s): L20.82 - Flexural eczema (5) Essential (primary) hypertension Current Visit: Yes Status: Chronic (6) HIV (human immunodeficiency virus infection) Current Visit: Yes Status: Chronic - Initial Treatment Plan Initial Treatment Plan: 1) Continue Seroquel 50 mg po HS. 2) Continue inpatient detoxification
[2016-12-27] MEDS: FLUOCINONIDE 0.05% CREAM (60 GM TUBE) TP SCH ×3 (13:00→22:14)
--- NOTE | 2016-12-27 16:34 | PN ---
[facility] CIWA - CIWA Score Nausea/Vomitin-Mild Nausea/No Vomiting Muscle Tremors: 2 Anxiety: 4-Mod. Anxious/Guarded Agitation: 2 Paroxysmal Sweats: 3 Orientation: 0-Oriented Tacttile Disturbances: 2-Mild Itch/Numbness/Burn Auditory Disturbances: 1-Very Mild Visual Disturbances: 3-Moderate Sensitivity Headache: 0-None Present CIWA-Ar Total Score: 18 S Progress Note (SOAP) Subjective: Sweating, Fatigue, Anxious. Objective: PT. A & O X 3, OBSERVED AMBULATING ON UNIT. NO ACUTE DISTRESS. PT. DENIES CHEST PAIN. 12/27/16 16:31 Vital Signs Temperature 98.0 F 12/27/16 15:22 Pulse Rate 96 H 12/27/16 15:22 Respiratory Rate 18 12/27/16 15:22 Blood Pressure 139/75 12/27/16 15:22 O2 Sat by Pulse Oximetry (%) Laboratory Tests 12/26/16 12/27/16 12/27/16 21:46 06:00 06:00 WBC 12.3 H D RBC 4.57 Hgb 14.7 Hct 43.9 MCV 96.2 H MCH 32.2 MCHC 33.5 RDW 14.3 Plt Count 252 MPV 9.5 Sodium 138 Potassium 4.1 Chloride 105 Carbon Dioxide 22 Anion Gap 11 BUN 23 H D Creatinine 1.4 H Creat Clearance w eGFR 52.24 Random Glucose 77 D Calcium 9.0 Total Bilirubin 0.4 AST 29 ALT 33 Alkaline Phosphatase 111 Total Protein 7.3 Albumin 3.6 Urine Color Lt. yellow Urine Appearance Clear Urine pH 5.0 Ur Specific [place] 1.010 Urine Protein 1+ H Urine Glucose (UA) Negative Urine Ketones Negative Urine Blood Negative Urine Nitrite Negative Urine Bilirubin Negative Urine Urobilinogen 0.2 Urine RBC None Urine WBC 1 Ur Epithelial Cells Rare Hyaline Casts 1 Urine Mucus Rare RPR Titer 12/27/16 06:00 WBC RBC Hgb Hct MCV MCH MCHC RDW Plt Count MPV Sodium Potassium Chloride Carbon Dioxide Anion Gap BUN Creatinine Creat Clearance w eGFR Random Glucose Calcium Total Bilirubin AST ALT Alkaline Phosphatase Total Protein Albumin Urine Color Urine Appearance Urine pH Ur Specific [place] Urine Protein Urine Glucose (UA) Urine Ketones Urine Blood Urine Nitrite Urine Bilirubin Urine Urobilinogen Urine RBC Urine WBC Ur Epithelial Cells Hyaline Casts Urine Mucus RPR Titer Nonreactive LABS NOTED. Assessment: 12/27/16 16:31 WITHDRAWAL SYMPTOMS. Plan: CONTINUE DETOX. [facility] ON 12/29/2016 FOR ABNORMAL ADMISSION RENAL LAB VALUES. D/C MAGNESIUM-CONTAINING MEDS. INCREASE DAILY PO FLUID INTAKE.
[2016-12-27] MEDS: THIAMINE HCL 100 MG TABLET (FP) PO SCH (22:13)
[2016-12-28] MEDS: FLUOCINONIDE 0.05% CREAM (60 GM TUBE) TP SCH (06:31)
[2016-12-28] MEDS: chlordiazePOXIDE HCL 25 MG CAPSULE PO SCH ×3 (06:31→17:36)
[2016-12-28] MEDS: EMTRICITABINE 200MG/TENOFOVIR 300MG PO SCH (10:34)
[2016-12-28] MEDS: RITONAVIR/LOPINAVIR 50MG/200MG 1 COMBO TABLET PO SCH ×2 (10:34→22:34)
[2016-12-28] MEDS: NICOTINE 21 MG/24 HOURS TOPICAL PATCH TD SCH (10:35)
[2016-12-28] MEDS: PRENATAL VITAMINS W/ FOLIC ACID TABLET (FP) PO SCH (10:35)
[2016-12-28] MEDS: amLODIPine BESYLATE 5 MG TABLET (FP) PO SCH (12:23)
[2016-12-28] MEDS: TRIAMCINOLONE ACET 0.1% OINT 15 GM TUBE TP SCH ×3 (12:43→22:37)
--- NOTE | 2016-12-28 15:47 | PN ---
S CIWA - CIWA Score Nausea/Vomitin Muscle Tremors: 4-Moderate,w/Arms Extend Anxiety: 4-Mod. Anxious/Guarded Agitation: 3 Paroxysmal Sweats: 3 Orientation: 0-Oriented Tacttile Disturbances: 0-None Auditory Disturbances: 0-None Visual Disturbances: 0-None Headache: 1-Very Mild CIWA-Ar Total Score: 17 S Progress Note (SOAP) Subjective: Anxious, restless, sweating, interrupted sleep Objective: 12/28/16 15:43 Last Vital Signs Temp Pulse Resp BP Pulse Ox 99.3 F 100 H 18 146/97 12/28/16 14:00 12/28/16 14:00 12/28/16 14:00 12/28/16 14:00 PE: generalized macular rash on extremities from chronic eczema as per patient. He is refusing lidex cream and only wants ointment. He agreed to take triamcinolone ointment Laboratory Tests 12/26/16 12/27/16 12/27/16 21:46 06:00 06:00 WBC 12.3 H D RBC 4.57 Hgb 14.7 Hct 43.9 MCV 96.2 H MCH 32.2 MCHC 33.5 RDW 14.3 Plt Count 252 MPV 9.5 Sodium 138 Potassium 4.1 Chloride 105 Carbon Dioxide 22 Anion Gap 11 BUN 23 H D Creatinine 1.4 H Creat Clearance w eGFR 52.24 Random Glucose 77 D Calcium 9.0 Total Bilirubin 0.4 AST 29 ALT 33 Alkaline Phosphatase 111 Total Protein 7.3 Albumin 3.6 Urine Color Lt. yellow Urine Appearance Clear Urine pH 5.0 Ur Specific [place] 1.010 Urine Protein 1+ H Urine Glucose (UA) Negative Urine Ketones Negative Urine Blood Negative Urine Nitrite Negative Urine Bilirubin Negative Urine Urobilinogen 0.2 Urine RBC None Urine WBC 1 Ur Epithelial Cells Rare Hyaline Casts 1 Urine Mucus Rare RPR Titer 12/27/16 06:00 WBC RBC Hgb Hct MCV MCH MCHC RDW Plt Count MPV Sodium Potassium Chloride Carbon Dioxide Anion Gap BUN Creatinine Creat Clearance w eGFR Random Glucose Calcium Total Bilirubin AST ALT Alkaline Phosphatase Total Protein Albumin Urine Color Urine Appearance Urine pH Ur Specific [place] Urine Protein Urine Glucose (UA) Urine Ketones Urine Blood Urine Nitrite Urine Bilirubin Urine Urobilinogen Urine RBC Urine WBC Ur Epithelial Cells Hyaline Casts Urine Mucus RPR Titer Nonreactive Labs noted: wbc 12.3, serum creatinine 1.4, bun 23, GFR 52.24, UA: 1+ protein Assessment: 12/28/16 15:47 Withdrawal symptoms Noted with leukocytosis, WAQAR and proteinuria History of chronic eczema Plan: Continue detox Leukocytosis: repeat cbc in AM WAQAR: encouraged to drink lots of water, water pitcher ordered, repeat BMP Proteinuria: encouraged to drink lots of water, repeat UA History of chronic eczema: d/c lidex, start triamcinolone ointment 1% bid to affected areas, 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
[2016-12-28] MEDS: THIAMINE HCL 100 MG TABLET (FP) PO SCH (22:32)
[2016-12-28] MEDS: chlordiazePOXIDE 5 MG CAPSULE PO SCH (22:33)
[2016-12-29] MEDS: chlordiazePOXIDE 5 MG CAPSULE PO SCH ×3 (05:17→16:45)
[2016-12-29 10:15] LABS: URINE APPEARANCE CLEAR; URINE BILIRUBIN NEGATIVE (NEGATIVE); URINE BLOOD NEGATIVE (NEGATIVE); URINE COLOR LTYELLOW; URINE GLUCOSE (UA) NEGATIVE (NEGATIVE); URINE KETONE NEGATIVE (NEGATIVE); URINE LEUK ESTERASE NEGATIVE (NEGATIVE); URINE NITRITE NEGATIVE (NEGATIVE); URINE PROTEIN NEGATIVE (NEGATIVE); URINE UROBILINOGEN NEGATIVE mg/dL (0.2-1.0)
[2016-12-29 10:23] LABS: BASOPHIL 0.9 % (0-2.0); EOSINOPHIL 4.6 % (0-4.5); MCH 32.2 pg (25.7-33.7); MCHC 33.1 g/dl (32.0-35.9); MEAN PLT VOLUME 8.9 fl (7.5-11.1); NEUTROPHILS 55.4 % (42.8-82.8); PLATELET COUNT 265 K/MM3 (134-434); RDW 14.2 % (11.9-15.9); WHITE BLOOD COUNT 9.8 K/mm3 (4.0-10.0)
[2016-12-29 10:31] LABS: ANION GAP 3 (8-16); CALCIUM 8.8 mg/dL (8.5-10.1); CO2 33 mmol/L (21-32); CREATININE 1.1 mg/dL (0.7-1.3); GLUCOSE,RANDOM 93 mg/dL (74-106)
[2016-12-29] MEDS: EMTRICITABINE 200MG/TENOFOVIR 300MG PO SCH (10:39)
[2016-12-29] MEDS: TRIAMCINOLONE ACET 0.1% OINT 15 GM TUBE TP SCH ×2 (10:39→22:07)
[2016-12-29] MEDS: RITONAVIR/LOPINAVIR 50MG/200MG 1 COMBO TABLET PO SCH ×2 (10:39→22:06)
[2016-12-29] MEDS: PRENATAL VITAMINS W/ FOLIC ACID TABLET (FP) PO SCH (10:39)
[2016-12-29] MEDS: amLODIPine BESYLATE 5 MG TABLET (FP) PO SCH (10:39)
[2016-12-29] MEDS: NICOTINE 21 MG/24 HOURS TOPICAL PATCH TD SCH (10:39)
--- NOTE | 2016-12-29 10:47 | PN ---
S Progress Note (SOAP) Subjective: NAUSEA, SWEATS, INTERRUPTED SLEEP, ANXIETY, TREMORS, Objective: 12/29/16 10:46 Vital Signs - 8 hr 12/29/16 12/29/16 12/29/16 03:26 06:21 07:07 Temperature 97.3 F L Pulse Rate 115 H 90 Respiratory 18 18 Rate Blood Pressure 159/96 140/87 12/29/16 09:14 Temperature 97.1 F L Pulse Rate 108 H Respiratory 20 Rate Blood Pressure 147/87 Laboratory Tests 12/26/16 12/27/16 12/27/16 21:46 06:00 06:00 WBC 12.3 H D RBC 4.57 Hgb 14.7 Hct 43.9 MCV 96.2 H MCH 32.2 MCHC 33.5 RDW 14.3 Plt Count 252 MPV 9.5 Neutrophils % Lymphocytes % Monocytes % Eosinophils % Basophils % Sodium 138 Potassium 4.1 Chloride 105 Carbon Dioxide 22 Anion Gap 11 BUN 23 H D Creatinine 1.4 H Creat Clearance w eGFR 52.24 Random Glucose 77 D Calcium 9.0 Total Bilirubin 0.4 AST 29 ALT 33 Alkaline Phosphatase 111 Total Protein 7.3 Albumin 3.6 Urine Color Lt. yellow Urine Appearance Clear Urine pH 5.0 Ur Specific [place] 1.010 Urine Protein 1+ H Urine Glucose (UA) Negative Urine Ketones Negative Urine Blood Negative Urine Nitrite Negative Urine Bilirubin Negative Urine Urobilinogen 0.2 Urine RBC None Urine WBC 1 Ur Epithelial Cells Rare Hyaline Casts 1 Urine Mucus Rare RPR Titer 12/27/16 12/29/16 12/29/16 06:00 06:00 07:50 WBC 9.8 RBC 4.62 Hgb 14.9 Hct 44.9 MCV 97.0 H MCH 32.2 MCHC 33.1 RDW 14.2 Plt Count 265 MPV 8.9 Neutrophils % 55.4 Lymphocytes % 29.3 Monocytes % 9.8 Eosinophils % 4.6 H Basophils % 0.9 Sodium 139 Potassium 4.3 Chloride 103 Carbon Dioxide 33 H D Anion Gap 3 L BUN 14 D Creatinine 1.1 D Creat Clearance w eGFR Random Glucose 93 D Calcium 8.8 Total Bilirubin AST ALT Alkaline Phosphatase Total Protein Albumin Urine Color Urine Appearance Urine pH Ur Specific [place] Urine Protein Urine Glucose (UA) Urine Ketones Urine Blood Urine Nitrite Urine Bilirubin Urine Urobilinogen Urine RBC Urine WBC Ur Epithelial Cells Hyaline Casts Urine Mucus RPR Titer Nonreactive 12/29/16 07:50 WBC RBC Hgb Hct MCV MCH MCHC RDW Plt Count MPV Neutrophils % Lymphocytes % Monocytes % Eosinophils % Basophils % Sodium Potassium Chloride Carbon Dioxide Anion Gap BUN Creatinine Creat Clearance w eGFR Random Glucose Calcium Total Bilirubin AST ALT Alkaline Phosphatase Total Protein Albumin Urine Color Ltyellow Urine Appearance Clear Urine pH 6.0 Ur Specific [place] Urine Protein Negative Urine Glucose (UA) Negative Urine Ketones Negative Urine Blood Negative Urine Nitrite Negative Urine Bilirubin Negative Urine Urobilinogen Negative Urine RBC Urine WBC Ur Epithelial Cells Hyaline Casts Urine Mucus RPR Titer Assessment: 12/29/16 10:46 WITHDRAWAL SX, DEHYDRATION, OBESITY Plan: CONT DETOX, FLUIDS, DIETARY COUSNELING PROVIDED
[2016-12-29] MEDS: LISINOPRIL 10 MG TABLET (FP) PO SCH (12:29)
[2016-12-29] MEDS ORDERED: chlordiazePOXIDE HCL 25 MG CAPSULE PO ONE (13:00)
[2016-12-29] MEDS: THIAMINE HCL 100 MG TABLET (FP) PO SCH (22:05)
[2016-12-29] MEDS: chlordiazePOXIDE HCL 10 MG CAPSULE PO SCH (22:05)
[2016-12-30] MEDS: chlordiazePOXIDE HCL 10 MG CAPSULE PO SCH ×2 (06:09→12:36)
[2016-12-30 06:37] VITALS: TEMP 97.8
[2016-12-30] MEDS: RITONAVIR/LOPINAVIR 50MG/200MG 1 COMBO TABLET PO SCH (09:10)
[2016-12-30] MEDS: PRENATAL VITAMINS W/ FOLIC ACID TABLET (FP) PO SCH (09:10)
[2016-12-30] MEDS: EMTRICITABINE 200MG/TENOFOVIR 300MG PO SCH (09:10)
[2016-12-30] MEDS: LISINOPRIL 10 MG TABLET (FP) PO SCH (09:15)
[2016-12-30] MEDS: TRIAMCINOLONE ACET 0.1% OINT 15 GM TUBE TP SCH (09:15)
[2016-12-30] MEDS: NICOTINE 21 MG/24 HOURS TOPICAL PATCH TD SCH (09:15)
[2016-12-30] MEDS: amLODIPine BESYLATE 5 MG TABLET (FP) PO SCH (09:15)
[2016-12-30 09:38] VITALS: BP 121/76; PULSE 93
--- NOTE | 2016-12-30 09:54 | DS ---
[facility] Detox Discharge Summary Admission Date: 12/26/16 Discharge Date: 12/30/16 - History Present History: Alcohol Dependence Pertinent Past History: HTN Eczema HIV - Physical Exam Results Vital Signs: Vital Signs Temperature 97.8 F 12/30/16 06:36 Pulse Rate 93 H 12/30/16 09:37 Respiratory Rate 20 12/30/16 09:37 Blood Pressure 121/76 12/30/16 09:37 O2 Sat by Pulse Oximetry (%) Pertinent Admission Physical Exam Findings: Withdrawal sx Laboratory Tests 12/26/16 12/27/16 12/27/16 21:46 06:00 06:00 WBC 12.3 H D RBC 4.57 Hgb 14.7 Hct 43.9 MCV 96.2 H MCH 32.2 MCHC 33.5 RDW 14.3 Plt Count 252 MPV 9.5 Neutrophils % Lymphocytes % Monocytes % Eosinophils % Basophils % Sodium 138 Potassium 4.1 Chloride 105 Carbon Dioxide 22 Anion Gap 11 BUN 23 H D Creatinine 1.4 H Creat Clearance w eGFR 52.24 Random Glucose 77 D Calcium 9.0 Total Bilirubin 0.4 AST 29 ALT 33 Alkaline Phosphatase 111 Total Protein 7.3 Albumin 3.6 Urine Color Lt. yellow Urine Appearance Clear Urine pH 5.0 Ur Specific [place] 1.010 Urine Protein 1+ H Urine Glucose (UA) Negative Urine Ketones Negative Urine Blood Negative Urine Nitrite Negative Urine Bilirubin Negative Urine Urobilinogen 0.2 Urine RBC None Urine WBC 1 Ur Epithelial Cells Rare Hyaline Casts 1 Urine Mucus Rare RPR Titer 12/27/16 12/29/16 12/29/16 06:00 06:00 07:50 WBC 9.8 RBC 4.62 Hgb 14.9 Hct 44.9 MCV 97.0 H MCH 32.2 MCHC 33.1 RDW 14.2 Plt Count 265 MPV 8.9 Neutrophils % 55.4 Lymphocytes % 29.3 Monocytes % 9.8 Eosinophils % 4.6 H Basophils % 0.9 Sodium 139 Potassium 4.3 Chloride 103 Carbon Dioxide 33 H D Anion Gap 3 L BUN 14 D Creatinine 1.1 D Creat Clearance w eGFR Random Glucose 93 D Calcium 8.8 Total Bilirubin AST ALT Alkaline Phosphatase Total Protein Albumin Urine Color Urine Appearance Urine pH Ur Specific [place] Urine Protein Urine Glucose (UA) Urine Ketones Urine Blood Urine Nitrite Urine Bilirubin Urine Urobilinogen Urine RBC Urine WBC Ur Epithelial Cells Hyaline Casts Urine Mucus RPR Titer Nonreactive 12/29/16 07:50 WBC RBC Hgb Hct MCV MCH MCHC RDW Plt Count MPV Neutrophils % Lymphocytes % Monocytes % Eosinophils % Basophils % Sodium Potassium Chloride Carbon Dioxide Anion Gap BUN Creatinine Creat Clearance w eGFR Random Glucose Calcium Total Bilirubin AST ALT Alkaline Phosphatase Total Protein Albumin Urine Color Ltyellow Urine Appearance Clear Urine pH 6.0 Ur Specific [place] 1.020 Urine Protein Negative Urine Glucose (UA) Negative Urine Ketones Negative Urine Blood Negative Urine Nitrite Negative Urine Bilirubin Negative Urine Urobilinogen Negative Urine RBC Urine WBC Ur Epithelial Cells Hyaline Casts Urine Mucus RPR Titer Labs noted. - Treatment Hospital Course: Detox Protocol Followed, Detoxed Safely, Responded well, Discharged Condition Good, Rehab Referral Accepted Patient has Accepted a Rehab Referral to: [facility] - Medication Discharge Medications: Ambulatory Orders Emtricitabine/Tenofovir [Truvada -] 1 tab PO DAILY #30 tablet 04/16/14 Fluocinonide 0.05% Oin [Lidex 0.05% Ointment -] 1 applic TP BID 30 Days Lisinopril [Prinivil] 10 mg PO DAILY #30 tablet 04/16/14 Lopinavir/Ritonavir [Kaletra 200-50 mg Tablet] 2 each PO BID #30 04/16/14 Quetiapine Fumarate "Xr" [Seroquel XR] 50 mg PO HS #30 mg 12/27/16 - Diagnosis (1) Alcohol dependence with uncomplicated withdrawal Current Visit: Yes Status: Acute (2) Nicotine dependence Current Visit: Yes Status: Acute Qualifiers: Nicotine product type: cigarettes Substance use status: in withdrawal Qualified Code(s): F17.213 - Nicotine dependence, cigarettes, with withdrawal (3) Cocaine dependence, uncomplicated Current Visit: Yes Status: Chronic (4) Eczema Current Visit: Yes Status: Chronic Qualifiers: Eczema type: flexural Qualified Code(s): L20.82 - Flexural eczema (5) Essential (primary) hypertension Current Visit: Yes Status: Chronic (6) HIV (human immunodeficiency virus infection) Current Visit: Yes Status: Chronic (7) Schizoaffective disorder Current Visit: Yes Status: Suspected Qualifiers: Schizoaffective disorder type: unspecified Qualified Code(s): F25.9 - Schizoaffective disorder, unspecified - AMA Did Patient Leave Against Medical Advice: No
== END 2016-12-30 14:34 | disposition other institution (70) | DRG 774 ==
LOC: YASAS 10:51 → Y3N 18:12
PROVIDERS: ADMIT Internal Medicine; ATTEND Internal Medicine
PROC: HZ2ZZZZ Detoxification Services for Substance Abuse Treatment (ICD-10-PCS; principal; 2016-12-26)
DX: F10.230 Alcohol dependence with withdrawal, uncomplicated (principal); F14.20 Cocaine dependence, uncomplicated; F17.213 Nicotine dependence, cigarettes, with withdrawal; F25.9 Schizoaffective disorder, unspecified; D72.829 Elevated white blood cell count, unspecified; R80.9 Proteinuria, unspecified; I10 Essential (primary) hypertension; R00.0 Tachycardia, unspecified; L20.82 Flexural eczema; Z21 Asymptomatic human immunodeficiency virus [HIV] infection status; Z91.010 Allergy to peanuts; E86.0 Dehydration; E66.9 Obesity, unspecified; Z68.30 Body mass index [BMI] 30.0-30.9, adult; N17.9 Acute kidney failure, unspecified; Z87.438 Personal history of other diseases of male genital organs
CPT/HCPCS: 36415; 80048; 80053; 81003; 81015; 85025; 85027; 86593; 93005; 93010

== ENCOUNTER 2016-12-30 14:21 | Inpatient (IN) | payer OTHER ==
[2016-12-30 15:09] VITALS: BMI 31.0
[2016-12-30] MEDS ORDERED: LOPERAMIDE HCL 2 MG CAPSULE PO PRN (15:44)
[2016-12-30] MEDS ORDERED: diphenhydrAMINE HCL 50 MG CAPSULE PO PRN (15:44)
[2016-12-30] MEDS ORDERED: MENTHOL/PHENOL 1 EACH UD MM PRN (15:44)
[2016-12-30] MEDS ORDERED: MAG HYDROX/AL HYDROX/SIMETH 30 ML UNIT-DOSE CUP PO PRN (15:44)
[2016-12-30] MEDS ORDERED: NICOTINE POLACRILEX 2 MG GUM BUC PRN (15:44)
[2016-12-30] MEDS ORDERED: MAGNESIUM HYDROX 2400MG/30ML ORAL SUSPENSION 30 ML CUP PO PRN (15:44)
[2016-12-30] MEDS ORDERED: ACETAMINOPHEN 325 MG TABLET (FP) PO PRN (15:44)
[2016-12-30] MEDS ORDERED: hydrOXYzine PAMOATE 50 MG CAPSULE (FP) PO PRN (15:44)
[2016-12-30] MEDS ORDERED: P-EPHED 60MG/TRIPROLIDI 2.5MG TABLET PO PRN (15:44)
[2016-12-30] MEDS ORDERED: IBUPROFEN 400 MG TABLET (FP) PO PRN (15:44)
[2016-12-30] MEDS ORDERED: MAGNESIUM CITRATE 300 ML BOTTLE PO PRN (15:44)
[2016-12-30] MEDS ORDERED: guaiFENesin/D-METHORPHAN HB 10 ML UNIT-DOSE CUPS PO PRN (15:44)
--- NOTE | 2016-12-30 15:48 | HP ---
[facility] Rehab Assess/Revision - Admission History Admitted to Rehab from: [facility] Date of Admission to Rehab: 12/30/16 - Vital signs Vital Signs: Vital Signs Period Temp Pulse Resp BP Sys/[place] Pulse Ox Last 24 Hr 98 F 105 18 152/90 - Findings Detox History & Physical reviewed: Yes Concur with findings: Yes Comments/Additional Findings: 56yo m with HIV, HTN, exzema admitted after alcohol detox from , labs reviewed, medicallys table. Inpatient Rehab Admission - Initial Determination Are CD services needed?: Yes Free of communicable disease: Yes Not in need of hospitalization: Yes - Rehab Admission Criteria Comorbidities: Yes Patient is meeting Inpatient Rehab admission criteria:: Yes
[2016-12-30] MEDS ORDERED: THIAMINE HCL 100 MG TABLET (FP) PO SCH (22:00)
[2016-12-30] MEDS ORDERED: RITONAVIR/LOPINAVIR 50MG/200MG 1 COMBO TABLET PO SCH (22:00)
[2016-12-30] MEDS ORDERED: FLUOCINONIDE 0.05% TOP OINT (60 GM TUBE) TP SCH (22:00)
[2016-12-31 06:51] VITALS: BP 124/75; PULSE 88; TEMP 97.7
--- NOTE | 2016-12-31 09:26 | PN ---
S Progress Note Note: patient signed out AMA this morning prior to be seen by a psychiatrist for admission, please see medical staff notes.
[2016-12-31] MEDS ORDERED: EMTRICITABINE 200MG/TENOFOVIR 300MG PO SCH (10:00)
[2016-12-31] MEDS ORDERED: PRENATAL VITAMINS W/ FOLIC ACID TABLET (FP) PO SCH (10:00)
[2016-12-31] MEDS ORDERED: LISINOPRIL 10 MG TABLET (FP) PO SCH (10:00)
[2016-12-31] MEDS ORDERED: NICOTINE 14 MG/24 HOURS TOPICAL PATCH TD SCH (10:00)
== END 2016-12-31 08:40 | disposition left against medical advice (07) | DRG 770 ==
LOC: YASAS 14:21 → Y5N 14:23
PROVIDERS: ADMIT Psychiatry & Neurology Psychiatry; ATTEND Psychiatry & Neurology Psychiatry
PROC: HZ42ZZZ Group Counseling for Substance Abuse Treatment, Cognitive-Behavioral (ICD-10-PCS; principal; 2016-12-30)
DX: F10.20 Alcohol dependence, uncomplicated (principal); F14.20 Cocaine dependence, uncomplicated; F17.213 Nicotine dependence, cigarettes, with withdrawal; F25.9 Schizoaffective disorder, unspecified; I10 Essential (primary) hypertension; L20.82 Flexural eczema; Z21 Asymptomatic human immunodeficiency virus [HIV] infection status

== ENCOUNTER 2017-09-14 14:28 | Inpatient (IN) | payer OTHER ==
[2017-09-14 17:22] VITALS: BMI 28.8
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
[2017-09-14] MEDS ORDERED: P-EPHED 60MG/TRIPROLIDI 2.5MG TABLET PO PRN (17:57)
[2017-09-14] MEDS ORDERED: MENTHOL/PHENOL 1 EACH UD MM PRN (17:57)
[2017-09-14] MEDS ORDERED: LOPERAMIDE HCL 2 MG CAPSULE PO PRN (17:57)
[2017-09-14] MEDS ORDERED: MAG HYDROX/AL HYDROX/SIMETH 30 ML UNIT-DOSE CUP PO PRN (17:57)
[2017-09-14] MEDS ORDERED: guaiFENesin/D-METHORPHAN HB 10 ML UNIT-DOSE CUPS PO PRN (17:57)
[2017-09-14] MEDS ORDERED: MAGNESIUM CITRATE 300 ML BOTTLE PO PRN (17:57)
[2017-09-14] MEDS ORDERED: ACETAMINOPHEN 325 MG TABLET (FP) PO PRN (17:57)
[2017-09-14] MEDS ORDERED: MAGNESIUM HYDROX 2400MG/30ML ORAL SUSPENSION 30 ML CUP PO PRN (17:57)
[2017-09-14] MEDS ORDERED: chlordiazePOXIDE HCL 25 MG CAPSULE PO PRN (17:59)
[2017-09-14] MEDS ORDERED: chlordiazePOXIDE HCL 25 MG CAPSULE PO ONE (19:00)
[2017-09-14] MEDS ORDERED: MELATONIN 5 MG TABLETS PO PRN (22:00)
[2017-09-14] MEDS: IBUPROFEN 400 MG TABLET (FP) PO PRN (22:04)
[2017-09-14] MEDS: chlordiazePOXIDE HCL 25 MG CAPSULE PO SCH (22:04)
[2017-09-14] MEDS: FLUOCINONIDE 0.05% TOP OINT (60 GM TUBE) TP SCH (22:04)
[2017-09-14 23:20] LABS: URINE APPEARANCE CLEAR; URINE BILIRUBIN NEGATIVE (<2.0 mg/dL); URINE BLOOD NEGATIVE (NEGATIVE); URINE COLOR DKYELLOW; URINE GLUCOSE (UA) NEGATIVE (NEGATIVE); URINE KETONE TRACE (NEGATIVE); URINE LEUK ESTERASE NEGATIVE (NEGATIVE); URINE NITRITE NEGATIVE (NEGATIVE)
[2017-09-14 23:24] LABS: URINE PROTEIN 2+ (NEGATIVE)
[2017-09-14] MEDS: THIAMINE HCL 100 MG TABLET (FP) PO SCH (23:26)
[2017-09-14 23:29] LABS: EPI CELLS RARE /HPF (FEW); URINE MUCUS FEW
[2017-09-15] MEDS: chlordiazePOXIDE HCL 25 MG CAPSULE PO SCH ×4 (06:05→22:41)
[2017-09-15] MEDS: IBUPROFEN 400 MG TABLET (FP) PO PRN (06:07)
--- NOTE | 2017-09-15 09:09 | CONSULT ---
[facility] Psychiatric Consult - Data Date of interview: 09/15/17 Admission source: [facility] Identifying data: Patient is a 57 year old single male, father of one, unemployed, domiciled and supported by the [facility] program. This is one of multiple admissions for patient. Pt. admitted to for alcohol and cocaine dependence. Substance Abuse History: Smoking Cessation. Smoking history: Current every day smoker. Have you smoked in the past 12 months: Yes. Aproximately how many cigarettes per day: 10. Cigars Per Day: 0. Hx Chewing Tobacco Use: No. Initiated information on smoking cessation: Yes. 'Breaking Loose' booklet given : 09/14/17. - Substance & Tx. History. Hx Alcohol Use: Yes. Hx Substance Use : Yes. Substance Use Type: Alcohol, Cocaine. Hx Substance Use Treatment: Yes. - Substances Abused. Alcohol. Route: Oral. Frequency: Daily. Age of first use: 12. Date of Last Use: 09/14/17. Cocaine. Route: Smoking. Frequency: 1-3 times last 30 days. Age of first use: 14. Date of Last Use: 10/21 Medical History: Right ankle surgery 05/2017, Asthma, HIV Psychiatric History: Patient reports a h/o schizoaffective disorder. Pt. denies psychiatric hospitalization. OPD is provided at the [facility] clinic and reports being prescribed seroquel 100mg. Patient denies h /o suicide attempt. Physical/Sexual Abuse/Trauma History: Denies. Mental Status Exam - Mental Status Exam Alert and Oriented to: Time, Place, Person Cognitive Function: Good Patient Appearance: Unkempt Mood: Withdrawn Affect: Mood Congruent Patient Behavior: Asleep (Patient able to be awaken to complete interview. ) Voice Loudness: Moderately Soft/Quiet Thought Process: Goal Oriented Thought Disorder: Not Present Hallucinations: Denies Suicidal Ideation: Denies Homicidal Ideation: Denies Insight/Judgement: Poor Sleep: Fair Appetite: Good Muscle strength/Tone: Normal Gait/Station: Other (Patient ambulates with a cane.) Psychiatric Findings - Problem List ([place] 1, 2,3) (1) Alcohol dependence with uncomplicated withdrawal Current Visit: Yes Status: Acute (2) Cocaine dependence, uncomplicated Current Visit: Yes Status: Chronic (3) Nicotine dependence Current Visit: Yes Status: Chronic Qualifiers: Nicotine product type: cigarettes Substance use status: uncomplicated Qualified Code(s): F17.210 - Nicotine dependence, cigarettes, uncomplicated (4) Schizoaffective disorder Current Visit: Yes Status: Suspected Qualifiers: Schizoaffective disorder type: unspecified Qualified Code(s): F25.9 - Schizoaffective disorder, unspecified Comment: Self-report. - Initial Treatment Plan Initial Treatment Plan: Psychoeducation provided. Detoxification in progress. Pt. refuses to resume seroquel due to feeling "tired" after accepting librium for detox. No psychotic symptoms noted. Will continue to monitor.
[2017-09-15] MEDS ORDERED: LISINOPRIL 10 MG TABLET (FP) PO SCH (10:00)
[2017-09-15] MEDS ORDERED: ALBUTEROL SO4 18 GM HFA INHALER IH PRN (10:13)
--- NOTE | 2017-09-15 10:16 | PN ---
S CIWA - CIWA Score Nausea/Vomitin-Mild Nausea/No Vomiting Muscle Tremors: 3 Anxiety: 3 Agitation: 3 Paroxysmal Sweats: 1-Minimal Palms Moist Orientation: 0-Oriented Tacttile Disturbances: 1-Very Mild Itch/Numbness Auditory Disturbances: 0-None Visual Disturbances: 0-None Headache: 0-None Present CIWA-Ar Total Score: 12 BHS Progress Note (SOAP) Subjective: sweat tremor trouble sleep at night low energy irritable agitation Objective: 09/15/17 10:19 Vital Signs Temperature 97.0 F L 09/15/17 09:49 Pulse Rate 77 09/15/17 09:49 Respiratory Rate 20 09/15/17 09:49 Blood Pressure 140/82 09/15/17 09:49 O2 Sat by Pulse Oximetry (%) Laboratory Last Values Urine Color Dkyellow 09/14/17 22:30 Urine Appearance Clear 09/14/17 22:30 Urine pH 5.0 (5.0-8.0) 09/14/17 22:30 Ur Specific [place] 1.026 (1.001-1.035) 09/14/17 22:30 Urine Protein 2+ (NEGATIVE) H 09/14/17 22:30 Urine Glucose (UA) Negative (NEGATIVE) 09/14/17 22:30 Urine Ketones Trace (NEGATIVE) H 09/14/17 22:30 Urine Blood Negative (NEGATIVE) 09/14/17 22:30 Urine Nitrite Negative (NEGATIVE) 09/14/17 22:30 Urine Bilirubin Negative (<2.0 mg/dL) 09/14/17 22:30 Urine Urobilinogen 2.0 mg/dL (0.2-1.0) 09/14/17 22:30 Ur Leukocyte Esterase Negative (NEGATIVE) 09/14/17 22:30 Urine WBC (Auto) 2 /hpf (3-5) 09/14/17 22:30 Urine RBC (Auto) 1 /hpf (0-3) 09/14/17 22:30 Ur Epithelial Cells Rare /HPF (FEW) 09/14/17 22:30 Urine Mucus Few 09/14/17 22:30 lab noted Assessment: 09/15/17 10:19 withdrawal sx Plan: continue detox
[2017-09-15 10:17] LABS: HEMATOCRIT 39.6 % (35.4-49); HEMOGLOBIN 13.3 GM/dL (11.7-16.9); MCH 30.3 pg (25.7-33.7); MCHC 33.5 g/dl (32.0-35.9); MEAN CELL VOLUME 90.5 fl (80-96); MEAN PLT VOLUME 9.1 fl (7.5-11.1); PLATELET COUNT 240 K/MM3 (134-434); RBC 4.38 M/mm3 (4.00-5.60); RDW 13.6 % (11.9-15.9)
[2017-09-15] MEDS: PRENATAL VITAMINS W/ FOLIC ACID TABLET (FP) PO SCH (10:29)
[2017-09-15] MEDS: FLUOCINONIDE 0.05% TOP OINT (60 GM TUBE) TP SCH ×2 (10:30→22:35)
[2017-09-15 10:50] LABS: CHLORIDE 106 mmol/L (98-107); POTASSIUM 3.7 mmol/L (3.5-5.1); SODIUM 141 mmol/L (136-145)
[2017-09-15 12:24] LABS: ALBUMIN 2.7 g/dl (3.4-5.0); ALK PHOS 149 U/L (45-117); ANION GAP 7 (8-16); BILIRUBIN,TOTAL 0.5 mg/dL (0.2-1.0); BLOOD UREA NITROGEN 13 mg/dL (7-18); CALCIUM 8.5 mg/dL (8.5-10.1); CO2 28 mmol/L (21-32); CREATININE 1.3 mg/dL (0.7-1.3); GLUCOSE,RANDOM 92 mg/dL (74-106); SGOT/AST 20 U/L (15-37); SGPT/ALT 23 U/L (12-78); TOT PROT 6.2 g/dl (6.4-8.2)
--- NOTE | 2017-09-15 12:24 | EKG ---
Test Reason : Blood Pressure : / mmHG Vent. Rate : 084 BPM Atrial Rate : 084 BPM P-R Int : 162 ms QRS Dur : 086 ms QT Int : 346 ms P-R-T Axes : 078 073 058 degrees QTc Int : 408 ms NORMAL SINUS RHYTHM WITH SINUS ARRHYTHMIA NORMAL ECG WHEN COMPARED WITH ECG OF 26-DEC-2016 19:12, NO SIGNIFICANT CHANGE WAS FOUND Confirmed by MD SHERRY, CARLOZ ([id number]) on 09/15/2017 12:24:31 PM Referred By: Confirmed By:CARLOZ POWELL MD
[2017-09-15] MEDS: hydrOXYzine PAMOATE 50 MG CAPSULE (FP) PO PRN ×2 (17:23→22:37)
[2017-09-15] MEDS: THIAMINE HCL 100 MG TABLET (FP) PO SCH (22:36)
[2017-09-16] MEDS: chlordiazePOXIDE HCL 25 MG CAPSULE PO SCH ×3 (07:05→18:20)
--- NOTE | 2017-09-16 09:09 | PN ---
S CIWA - CIWA Score Nausea/Vomitin-Mild Nausea/No Vomiting Muscle Tremors: 3 Anxiety: 2 Agitation: 2 Paroxysmal Sweats: 1-Minimal Palms Moist Orientation: 0-Oriented Tacttile Disturbances: 1-Very Mild Itch/Numbness Auditory Disturbances: 0-None Visual Disturbances: 0-None Headache: 1-Very Mild CIWA-Ar Total Score: 11 S Progress Note (SOAP) Subjective: sweat tremor irritable anxiety restlessness Objective: 09/16/17 09:10 Vital Signs Temperature 96.8 F L 09/16/17 06:00 Pulse Rate 76 09/16/17 06:00 Respiratory Rate 18 09/16/17 06:00 Blood Pressure 155/96 09/16/17 06:00 O2 Sat by Pulse Oximetry (%) hypertension Laboratory Last Values WBC 5.0 K/mm3 (4.0-10.0) D 09/15/17 07:20 RBC 4.38 M/mm3 (4.00-5.60) 09/15/17 07:20 Hgb 13.3 GM/dL (11.7-16.9) D 09/15/17 07:20 Hct 39.6 % (35.4-49) 09/15/17 07:20 MCV 90.5 fl (80-96) 09/15/17 07:20 MCH 30.3 pg (25.7-33.7) 09/15/17 07:20 MCHC 33.5 g/dl (32.0-35.9) 09/15/17 07:20 RDW 13.6 % (11.9-15.9) 09/15/17 07:20 Plt Count 240 K/MM3 (134-434) 09/15/17 07:20 MPV 9.1 fl (7.5-11.1) 09/15/17 07:20 Sodium 141 mmol/L (136-145) 09/15/17 07:20 Potassium 3.7 mmol/L (3.5-5.1) 09/15/17 07:20 Chloride 106 mmol/L (98-107) 09/15/17 07:20 Carbon Dioxide 28 mmol/L (21-32) 09/15/17 07:20 Anion Gap 7 (8-16) L 09/15/17 07:20 BUN 13 mg/dL (7-18) 09/15/17 07:20 Creatinine 1.3 mg/dL (0.7-1.3) 09/15/17 07:20 Creat Clearance w eGFR 56.70 (>60) 09/15/17 07:20 Random Glucose 92 mg/dL (74-106) 09/15/17 07:20 Calcium 8.5 mg/dL (8.5-10.1) 09/15/17 07:20 Total Bilirubin 0.5 mg/dL (0.2-1.0) D 09/15/17 07:20 AST 20 U/L (15-37) D 09/15/17 07:20 ALT 23 U/L (12-78) D 09/15/17 07:20 Alkaline Phosphatase 149 U/L (45-117) H D 09/15/17 07:20 Total Protein 6.2 g/dl (6.4-8.2) L 09/15/17 07:20 Albumin 2.7 g/dl (3.4-5.0) L D 09/15/17 07:20 Urine Color Dkyellow 09/14/17 22:30 Urine Appearance Clear 09/14/17 22:30 Urine pH 5.0 (5.0-8.0) 09/14/17 22:30 Ur Specific [place] 1.026 (1.001-1.035) 09/14/17 22:30 Urine Protein 2+ (NEGATIVE) H 09/14/17 22:30 Urine Glucose (UA) Negative (NEGATIVE) 09/14/17 22:30 Urine Ketones Trace (NEGATIVE) H 09/14/17 22:30 Urine Blood Negative (NEGATIVE) 09/14/17 22:30 Urine Nitrite Negative (NEGATIVE) 09/14/17 22:30 Urine Bilirubin Negative (<2.0 mg/dL) 09/14/17 22:30 Urine Urobilinogen 2.0 mg/dL (0.2-1.0) 09/14/17 22:30 Ur Leukocyte Esterase Negative (NEGATIVE) 09/14/17 22:30 Urine WBC (Auto) 2 /hpf (3-5) 09/14/17 22:30 Urine RBC (Auto) 1 /hpf (0-3) 09/14/17 22:30 Ur Epithelial Cells Rare /HPF (FEW) 09/14/17 22:30 Urine Mucus Few 09/14/17 22:30 RPR Titer Nonreactive (NONREACTIVE) 09/15/17 07:20 lab noted Assessment: 09/16/17 09:11 withdrawal sx hypertension Plan: continue detox increase lisinopril 10 mg to bid
[2017-09-16] MEDS: FLUOCINONIDE 0.05% TOP OINT (60 GM TUBE) TP SCH ×2 (10:30→22:12)
[2017-09-16] MEDS: LISINOPRIL 10 MG TABLET (FP) PO SCH ×2 (10:30→22:13)
[2017-09-16] MEDS: PRENATAL VITAMINS W/ FOLIC ACID TABLET (FP) PO SCH (10:30)
[2017-09-16] MEDS: chlordiazePOXIDE 5 MG CAPSULE PO SCH (22:12)
[2017-09-16] MEDS: THIAMINE HCL 100 MG TABLET (FP) PO SCH (22:13)
--- NOTE | 2017-09-17 09:42 | PN ---
BHS Progress Note (SOAP) Subjective: feeling better no tremor less sweat social with peers in day room Objective: 09/17/17 09:45 Vital Signs Temperature 97.4 F L 09/17/17 09:12 Pulse Rate 92 H 09/17/17 09:12 Respiratory Rate 18 09/17/17 09:12 Blood Pressure 141/55 09/17/17 09:12 O2 Sat by Pulse Oximetry (%) Laboratory Last Values WBC 5.0 K/mm3 (4.0-10.0) D 09/15/17 07:20 RBC 4.38 M/mm3 (4.00-5.60) 09/15/17 07:20 Hgb 13.3 GM/dL (11.7-16.9) D 09/15/17 07:20 Hct 39.6 % (35.4-49) 09/15/17 07:20 MCV 90.5 fl (80-96) 09/15/17 07:20 MCH 30.3 pg (25.7-33.7) 09/15/17 07:20 MCHC 33.5 g/dl (32.0-35.9) 09/15/17 07:20 RDW 13.6 % (11.9-15.9) 09/15/17 07:20 Plt Count 240 K/MM3 (134-434) 09/15/17 07:20 MPV 9.1 fl (7.5-11.1) 09/15/17 07:20 Sodium 141 mmol/L (136-145) 09/15/17 07:20 Potassium 3.7 mmol/L (3.5-5.1) 09/15/17 07:20 Chloride 106 mmol/L (98-107) 09/15/17 07:20 Carbon Dioxide 28 mmol/L (21-32) 09/15/17 07:20 Anion Gap 7 (8-16) L 09/15/17 07:20 BUN 13 mg/dL (7-18) 09/15/17 07:20 Creatinine 1.3 mg/dL (0.7-1.3) 09/15/17 07:20 Creat Clearance w eGFR 56.70 (>60) 09/15/17 07:20 Random Glucose 92 mg/dL (74-106) 09/15/17 07:20 Calcium 8.5 mg/dL (8.5-10.1) 09/15/17 07:20 Total Bilirubin 0.5 mg/dL (0.2-1.0) D 09/15/17 07:20 AST 20 U/L (15-37) D 09/15/17 07:20 ALT 23 U/L (12-78) D 09/15/17 07:20 Alkaline Phosphatase 149 U/L (45-117) H D 09/15/17 07:20 Total Protein 6.2 g/dl (6.4-8.2) L 09/15/17 07:20 Albumin 2.7 g/dl (3.4-5.0) L D 09/15/17 07:20 Urine Color Dkyellow 09/14/17 22:30 Urine Appearance Clear 09/14/17 22:30 Urine pH 5.0 (5.0-8.0) 09/14/17 22:30 Ur Specific [place] 1.026 (1.001-1.035) 09/14/17 22:30 Urine Protein 2+ (NEGATIVE) H 09/14/17 22:30 Urine Glucose (UA) Negative (NEGATIVE) 09/14/17 22:30 Urine Ketones Trace (NEGATIVE) H 09/14/17 22:30 Urine Blood Negative (NEGATIVE) 09/14/17 22:30 Urine Nitrite Negative (NEGATIVE) 09/14/17 22:30 Urine Bilirubin Negative (<2.0 mg/dL) 09/14/17 22:30 Urine Urobilinogen 2.0 mg/dL (0.2-1.0) 09/14/17 22:30 Ur Leukocyte Esterase Negative (NEGATIVE) 09/14/17 22:30 Urine WBC (Auto) 2 /hpf (3-5) 09/14/17 22:30 Urine RBC (Auto) 1 /hpf (0-3) 09/14/17 22:30 Ur Epithelial Cells Rare /HPF (FEW) 09/14/17 22:30 Urine Mucus Few 09/14/17 22:30 RPR Titer Nonreactive (NONREACTIVE) 09/15/17 07:20 lab noted Assessment: 09/17/17 09:46 mild withdrawal sx Plan: medically supervised detox
[2017-09-17] MEDS: PRENATAL VITAMINS W/ FOLIC ACID TABLET (FP) PO SCH (11:35)
[2017-09-17] MEDS: LISINOPRIL 10 MG TABLET (FP) PO SCH ×2 (11:35→22:25)
[2017-09-17] MEDS: chlordiazePOXIDE 5 MG CAPSULE PO SCH ×3 (11:36→20:22)
[2017-09-17] MEDS: FLUOCINONIDE 0.05% TOP OINT (60 GM TUBE) TP SCH ×2 (11:37→23:19)
[2017-09-17] MEDS: amLODIPine BESYLATE 10 MG TABLET (FP) PO SCH (11:37)
[2017-09-17] MEDS: chlordiazePOXIDE HCL 10 MG CAPSULE PO SCH (22:25)
[2017-09-17] MEDS: THIAMINE HCL 100 MG TABLET (FP) PO SCH (22:25)
[2017-09-18] MEDS: chlordiazePOXIDE HCL 10 MG CAPSULE PO SCH (06:37)
[2017-09-18 07:18] VITALS: BP 133/77; PULSE 91; TEMP 97.3
[2017-09-18] MEDS: LISINOPRIL 10 MG TABLET (FP) PO SCH (09:29)
[2017-09-18] MEDS: PRENATAL VITAMINS W/ FOLIC ACID TABLET (FP) PO SCH (09:29)
[2017-09-18] MEDS: amLODIPine BESYLATE 10 MG TABLET (FP) PO SCH (09:29)
--- NOTE | 2017-09-18 11:12 | PN ---
BHS Progress Note (SOAP) Subjective: DETOX COMPLETED. ALERT O X 3. OOB AMBULATING WITH STEADY GAIT. Objective: 09/18/17 11:10 Vital Signs 09/18/17 09/18/17 03:30 07:18 Temperature 97.3 F L Pulse Rate 91 H Respiratory 18 20 Rate Blood Pressure 133/77 Laboratory Tests 09/14/17 09/15/17 09/15/17 22:30 07:20 07:20 WBC 5.0 D RBC 4.38 Hgb 13.3 D Hct 39.6 MCV 90.5 MCH 30.3 MCHC 33.5 RDW 13.6 Plt Count 240 MPV 9.1 Sodium 141 Potassium 3.7 Chloride 106 Carbon Dioxide 28 Anion Gap 7 L BUN 13 Creatinine 1.3 Creat Clearance w eGFR 56.70 Random Glucose 92 Calcium 8.5 Total Bilirubin 0.5 D AST 20 D ALT 23 D Alkaline Phosphatase 149 H D Total Protein 6.2 L Albumin 2.7 L D Urine Color Dkyellow Urine Appearance Clear Urine pH 5.0 Ur Specific [place] 1.026 Urine Protein 2+ H Urine Glucose (UA) Negative Urine Ketones Trace H Urine Blood Negative Urine Nitrite Negative Urine Bilirubin Negative Urine Urobilinogen 2.0 Ur Leukocyte Esterase Negative Urine WBC (Auto) 2 Urine RBC (Auto) 1 Ur Epithelial Cells Rare Urine Mucus Few RPR Titer 09/15/17 07:20 WBC RBC Hgb Hct MCV MCH MCHC RDW Plt Count MPV Sodium Potassium Chloride Carbon Dioxide Anion Gap BUN Creatinine Creat Clearance w eGFR Random Glucose Calcium Total Bilirubin AST ALT Alkaline Phosphatase Total Protein Albumin Urine Color Urine Appearance Urine pH Ur Specific [place] Urine Protein Urine Glucose (UA) Urine Ketones Urine Blood Urine Nitrite Urine Bilirubin Urine Urobilinogen Ur Leukocyte Esterase Urine WBC (Auto) Urine RBC (Auto) Ur Epithelial Cells Urine Mucus RPR Titer Nonreactive Assessment: 09/18/17 11:11 MEDICALLY STABLE Plan: D/C PT TODAY
--- NOTE | 2017-09-18 11:15 | DS ---
[facility] Detox Discharge Summary Admission Date: 09/14/17 Discharge Date: 09/18/17 - History Present History: Alcohol Dependence, Cocaine Dependence Additional Comments: DETOX COMPLETED. ALERT O X 3. NAD. PT REPORTS HAS PRIMARY CARE AT [facility] AT [address] [place] [address] FOR MEDICAL MANAGEMENT. PT STATES HE HAS OWN MEDS AT HOME. Pertinent Past History: PLEASE SEE DX BELOW - Physical Exam Results Vital Signs: Vital Signs Temperature 97.3 F L 09/18/17 07:18 Pulse Rate 91 H 09/18/17 07:18 Respiratory Rate 20 09/18/17 07:18 Blood Pressure 133/77 09/18/17 07:18 O2 Sat by Pulse Oximetry (%) Pertinent Admission Physical Exam Findings: WITHDRAWAL SX Laboratory Tests 09/14/17 09/15/17 09/15/17 22:30 07:20 07:20 WBC 5.0 D RBC 4.38 Hgb 13.3 D Hct 39.6 MCV 90.5 MCH 30.3 MCHC 33.5 RDW 13.6 Plt Count 240 MPV 9.1 Sodium 141 Potassium 3.7 Chloride 106 Carbon Dioxide 28 Anion Gap 7 L BUN 13 Creatinine 1.3 Creat Clearance w eGFR 56.70 Random Glucose 92 Calcium 8.5 Total Bilirubin 0.5 D AST 20 D ALT 23 D Alkaline Phosphatase 149 H D Total Protein 6.2 L Albumin 2.7 L D Urine Color Dkyellow Urine Appearance Clear Urine pH 5.0 Ur Specific [place] 1.026 Urine Protein 2+ H Urine Glucose (UA) Negative Urine Ketones Trace H Urine Blood Negative Urine Nitrite Negative Urine Bilirubin Negative Urine Urobilinogen 2.0 Ur Leukocyte Esterase Negative Urine WBC (Auto) 2 Urine RBC (Auto) 1 Ur Epithelial Cells Rare Urine Mucus Few RPR Titer 09/15/17 07:20 WBC RBC Hgb Hct MCV MCH MCHC RDW Plt Count MPV Sodium Potassium Chloride Carbon Dioxide Anion Gap BUN Creatinine Creat Clearance w eGFR Random Glucose Calcium Total Bilirubin AST ALT Alkaline Phosphatase Total Protein Albumin Urine Color Urine Appearance Urine pH Ur Specific [place] Urine Protein Urine Glucose (UA) Urine Ketones Urine Blood Urine Nitrite Urine Bilirubin Urine Urobilinogen Ur Leukocyte Esterase Urine WBC (Auto) Urine RBC (Auto) Ur Epithelial Cells Urine Mucus RPR Titer Nonreactive - Treatment Hospital Course: Detox Protocol Followed, Detoxed Safely, Responded well, Discharged Condition Good - Medication Discharge Medications: Ambulatory Orders Emtricitabine/Tenofovir [Truvada -] 1 tab PO DAILY #30 tablet 04/16/14 Fluocinonide 0.05% Oin [Lidex 0.05% Ointment -] 1 applic TP BID 30 Days applic 04/16/14 Quetiapine Fumarate "Xr" [Seroquel XR] 50 mg PO HS #30 mg 12/27/16 Dolutegravir Sodium [Tivicay] 50 mg PO DAILY 09/14/17 Albuterol Sulfate Inhaler - [Ventolin HFA Inhaler -] 2 inh IH PRN PRN #1 inhaler 09/17/17 Lisinopril [Prinivil] 10 mg PO DAILY #30 tablet 09/17/17 - Diagnosis (1) Alcohol dependence with uncomplicated withdrawal Status: Acute (2) Cocaine dependence, uncomplicated Status: Acute (3) Eczema Status: Chronic Qualifiers: Eczema type: flexural Qualified Code(s): L20.82 - Flexural eczema (4) Essential (primary) hypertension Status: Chronic (5) HIV (human immunodeficiency virus infection) Status: Chronic (6) Nicotine dependence Status: Acute Qualifiers: Nicotine product type: cigarettes Substance use status: in withdrawal Qualified Code(s): F17.213 - Nicotine dependence, cigarettes, with withdrawal - AMA Did Patient Leave Against Medical Advice: No
== END 2017-09-18 09:31 | disposition home or self-care (01) | DRG 774 ==
LOC: YASAS 14:28 → Y6N 18:41
PROVIDERS: ADMIT Surgery; ATTEND Surgery
PROC: HZ2ZZZZ Detoxification Services for Substance Abuse Treatment (ICD-10-PCS; principal; 2017-09-14)
DX: F10.230 Alcohol dependence with withdrawal, uncomplicated (principal); F14.20 Cocaine dependence, uncomplicated; F17.213 Nicotine dependence, cigarettes, with withdrawal; F25.9 Schizoaffective disorder, unspecified; L20.82 Flexural eczema; I10 Essential (primary) hypertension; Z21 Asymptomatic human immunodeficiency virus [HIV] infection status; J45.909 Unspecified asthma, uncomplicated; Z87.438 Personal history of other diseases of male genital organs
CPT/HCPCS: 36415; 80053; 81003; 81015; 85027; 86593; 93005; 93010

== ENCOUNTER 2018-03-26 14:12 | Inpatient (IN) | payer OTHER ==
[2018-03-26 14:43] VITALS: BMI 29.1
--- NOTE | 2018-03-26 18:34 | HP ---
CIWA Score - Admission Criteria [facility] Guidelines: Admission for Medically Managed Detox: Requires at least one of the followin. CIWA greater than 12 2. Seizures within the past 24 hours 3. Delirium tremens within the past 24 hours 4. Hallucinations within the past 24 hours 5. Acute intervention needed for co occurring medical disorder 6. Acute intervention needed for co occurring psychiatric disorder 7. Severe withdrawal that cannot be handled at a lower level of care (continued vomiting, continued diarrhea, abnormal vital signs) requiring intravenous medication and/or fluids 8. Admission ROS [facility] Chief Complaint: Here for alcohol withdrawal. Allergies/Adverse Reactions: Allergies Allergy/AdvReac Type Severity Reaction Status Date / Time No Known Drug Allergies Allergy Verified 11/02/17 10:52 micronesian nuts Allergy Intermediate Swelling Uncoded 11/02/17 10:52 History of Present Illness: x x - Ebola screening Have you traveled outside of the country in the last 21 days: No (N) Have you had contact with anyone from an Ebola affected area: No Have you been sick,other than usual withdrawal symptoms: No Do you have a fever: No Patient History - Patient Medical History Hx Anemia: No Hx Asthma: Yes Hx Chronic Obstructive Pulmonary Disease (COPD): No Hx Cancer: No Hx Cardiac Disorders: No Hx Congestive Heart Failure: No Hx Hypertension: No Hx Hypercholesterolemia: No Hx Pacemaker: No HX Cerebrovascular Accident: No Hx Seizures: No Hx Dementia: No Hx Diabetes: No Hx Gastrointestinal Disorders: No Hx Liver Disease: No Hx Genitourinary Disorders: No Hx Sexually Transmitted Disorders: No Hx Renal Disease (ESRD): No Hx Thyroid Disease: No Hx Human Immunodeficiency Virus (HIV): Yes (SINCE 01/21/2003; [place] AND [place]) Hx Hepatitis C: No Hx Depression: No Hx Suicide Attempt: No Hx Bipolar Disorder: No Hx Schizophrenia: No - Patient Surgical History Past Surgical History: Yes Hx Neurologic Surgery: No Hx Cataract Extraction: No Hx Cardiac Surgery: No Hx Lung Surgery: No Hx Breast Surgery: No Hx Breast Biopsy: No Hx Abdominal Surgery: No Hx Appendectomy: No Hx Cholecystectomy: No Hx Genitourinary Surgery: No Hx Orthopedic Surgery: Yes (Right ankle surgery 05/2017) Anesthesia Reaction: No - PPD History Previous Implant?: Yes Documented Results: Negative w/o proof Implanted On Prior R Admission?: Yes Date: 09/16/17 Results: omm - Smoking Cessation Smoking history: Current every day smoker Have you smoked in the past 12 months: Yes Aproximately how many cigarettes per day: 8 Cigars Per Day: 0 Hx Chewing Tobacco Use: No - Substances Abused Alcohol Route: Oral Frequency: Daily Amount used: 4 pints of rum and vodka Age of first use: 13 Date of Last Use: 03/26/18 Family Disease History - Family Disease History Family Disease History: Other: Grandparent (HTN), Father (), Mother ( ) Admission Physical Exam BHS - Vital Signs Vital Signs: Vital Signs - 24 hr 03/26/18 14:41 Temperature 96.9 F L Pulse Rate 94 H Respiratory 20 Rate Blood Pressure 114/75 BHS Breath Alcohol Content Breath Alcohol Content: 0 Urine Drug Screen - Results Drug Screen Negative: No Urine Drug Screen Results: FILIPE-Cocaine
--- NOTE | 2018-03-26 18:50 | HP ---
CIWA Score Nausea/Vomitin-Int. Nausea w/Dry Heave Muscle Tremors: None Anxiety: 3 Agitation: 3 Paroxysmal Sweats: No Perspiration Orientation: 0-Oriented Tacttile Disturbances: 0-None Auditory Disturbances: 0-None Visual Disturbances: 2-Mild Sensitivity Headache: 0-None Present CIWA-Ar Total Score: 12 - Admission Criteria OASAS Guidelines: Admission for Medically Managed Detox: Requires at least one of the followin. CIWA greater than 12 2. Seizures within the past 24 hours 3. Delirium tremens within the past 24 hours 4. Hallucinations within the past 24 hours 5. Acute intervention needed for co occurring medical disorder 6. Acute intervention needed for co occurring psychiatric disorder 7. Severe withdrawal that cannot be handled at a lower level of care (continued vomiting, continued diarrhea, abnormal vital signs) requiring intravenous medication and/or fluids 8. Admission ROS S - HPI Allergies/Adverse Reactions: Allergies Allergy/AdvReac Type Severity Reaction Status Date / Time No Known Drug Allergies Allergy Verified 11/02/17 10:52 romanian nuts Allergy Intermediate Swelling Uncoded 11/02/17 10:52 History of Present Illness: patient here requesting detox from etoh use , reports latest use this morning , current symptoms as above , denies seizures, + blackouts ,no tremors , first age of 13 , heavily since age 19 , longest sobriety 5-6 years while incarcerated . Prior detox 3-4 months ago at this facility . cocaine :states stopped a while ago , used yesterday utox + ceci tobacco : 8-9 cig /day PMHX :HIV/AIDS ( January 2003 - has own PCP [facility] ) , asthma, HTN Pt very irritable and declines to answer further questions " it's already in there " Exam Limitations: Clinical Condition - Ebola screening Have you traveled outside of the country in the last 21 days: No (N) Have you had contact with anyone from an Ebola affected area: No Have you been sick,other than usual withdrawal symptoms: No Do you have a fever: No - Review of Systems Constitutional: See HPI EENT: reports: Other (denies vision problems) Respiratory: reports: No Symptoms reported Cardiac: reports: No Symptoms Reported (patient declined to answer , very irritable and verbally agressive towards this bond writer " you are asking me the same questions as the other one she asked me 1 hout and a half ago , it's the same $#! "), Other (patient very irritable , yelling at bond writer " I have answered these questions already ") GI: reports: Other (patient declined to answer) : reports: Other (patient declined to answer) Musculoskeletal: reports: Other (patient declined to answer) Integumentary: reports: Other (patient declined to answer) Neuro: reports: Other (patient declined to answer) Hematology: reports: Other (patient declined to answer) Psychiatric: reports: Agitated, other (patient declined to answer) Patient History - Patient Medical History Hx Anemia: No Hx Asthma: Yes Hx Chronic Obstructive Pulmonary Disease (COPD): No Hx Cancer: No Hx Cardiac Disorders: No Hx Congestive Heart Failure: No Hx Hypertension: No Hx Hypercholesterolemia: No Hx Pacemaker: No HX Cerebrovascular Accident: No Hx Seizures: No Hx Dementia: No Hx Diabetes: No Hx Gastrointestinal Disorders: No Hx Liver Disease: No Hx Genitourinary Disorders: No Hx Sexually Transmitted Disorders: No Hx Renal Disease (ESRD): No Hx Thyroid Disease: No Hx Human Immunodeficiency Virus (HIV): Yes (SINCE 01/21/2003; [facility]) Hx Hepatitis C: No Hx Depression: No Hx Suicide Attempt: No Hx Bipolar Disorder: No Hx Schizophrenia: No - Patient Surgical History Past Surgical History: Yes Hx Neurologic Surgery: No Hx Cataract Extraction: No Hx Cardiac Surgery: No Hx Lung Surgery: No Hx Breast Surgery: No Hx Breast Biopsy: No Hx Abdominal Surgery: No Hx Appendectomy: No Hx Cholecystectomy: No Hx Genitourinary Surgery: No Hx Orthopedic Surgery: Yes (Right ankle surgery 05/2017) Anesthesia Reaction: No - PPD History Previous Implant?: Yes Documented Results: Negative w/o proof Implanted On Prior [facility] Admission?: Yes Date: 09/16/17 Results: omm - Smoking Cessation Smoking history: Current every day smoker Have you smoked in the past 12 months: Yes Aproximately how many cigarettes per day: 8 Cigars Per Day: 0 Hx Chewing Tobacco Use: No Initiated information on smoking cessation: No - Substances Abused Alcohol Route: Oral Frequency: Daily Amount used: 4 pints of rum and vodka Age of first use: 13 Date of Last Use: 03/26/18 Family Disease History - Family Disease History Family Disease History: Other: Grandparent (HTN), Father (), Mother ( ) Admission Physical Exam [facility] - Vital Signs Vital Signs: Vital Signs - 24 hr 03/26/18 14:41 Temperature 96.9 F L Pulse Rate 94 H Respiratory 20 Rate Blood Pressure 114/75 - Physical General Appearance: Yes: Moderate Distress, Irritable, Anxious, Other (patient declined to answer most questions and refused mosed of the exam , very irritable, agitated , yelling at bond writer) HEENTM: Yes: Normal Voice, Other (upper and lower dentures) Respiratory: Yes: Lungs Clear, Normal Breath Sounds Neck: Yes: Other (patient declined exam) Breast: Yes: Breast Exam Deferred Cardiology: Yes: Regular Rhythm, Regular Rate, S1, S2, Tachycardia Abdominal: Yes: Other (patient declined exam) Back: Yes: Other (patient declined exam) Musculoskeletal: Yes: Other (patient declined exam) Extremities: Yes: Other (declined exam) Neurological: Yes: Other (declined exam) Integumentary: Yes: Other (left wrist small area of excoriation- states he scratched himself) - Diagnostic (1) Alcohol dependence with uncomplicated withdrawal Current Visit: No Status: Acute (2) Nicotine dependence Current Visit: No Status: Chronic Qualifiers: Nicotine product type: cigarettes Substance use status: in withdrawal Qualified Code(s): F17.213 - Nicotine dependence, cigarettes, with withdrawal [facility] Breath Alcohol Content Breath Alcohol Content: 0 Urine Drug Screen - Results Drug Screen Negative: No Urine Drug Screen Results: CECI-Cocaine
[2018-03-26] MEDS ORDERED: MAGNESIUM CITRATE 300 ML BOTTLE PO PRN (20:26)
[2018-03-26] MEDS ORDERED: IBUPROFEN 400 MG TABLET (FP) PO PRN (20:26)
[2018-03-26] MEDS ORDERED: P-EPHED 60MG/TRIPROLIDI 2.5MG TABLET PO PRN (20:26)
[2018-03-26] MEDS ORDERED: MENTHOL/PHENOL 1 EACH UD MM PRN (20:26)
[2018-03-26] MEDS ORDERED: diazePAM 5 MG TABLET PO PRN (20:26)
[2018-03-26] MEDS ORDERED: MAGNESIUM HYDROX 2400MG/30ML ORAL SUSPENSION 30 ML CUP PO PRN (20:26)
[2018-03-26] MEDS ORDERED: guaiFENesin/D-METHORPHAN HB 10 ML UNIT-DOSE CUPS PO PRN (20:26)
[2018-03-26] MEDS ORDERED: MAG HYDROX/AL HYDROX/SIMETH 30 ML UNIT-DOSE CUP PO PRN (20:26)
[2018-03-26] MEDS ORDERED: ACETAMINOPHEN 325 MG TABLET (FP) PO PRN (20:26)
[2018-03-26] MEDS ORDERED: ALBUTEROL SO4 8 GM HFA INHALER IH PRN (20:27)
[2018-03-26] MEDS ORDERED: cloNIDine HCL 0.1 MG TABLET PO PRN (20:31)
[2018-03-26] MEDS: THIAMINE HCL 100 MG TABLET (FP) PO SCH (22:19)
[2018-03-26] MEDS: diazePAM 5 MG TABLET PO SCH (22:19)
[2018-03-27] MEDS: diazePAM 5 MG TABLET PO SCH ×3 (05:43→22:02)
[2018-03-27] MEDS: PRENATAL VITAMINS W/ FOLIC ACID TABLET (FP) PO SCH (10:33)
[2018-03-27 11:16] LABS: ALBUMIN 2.8 g/dl (3.4-5.0); ALK PHOS 133 U/L (45-117); ANION GAP 6 MMOL/L (8-16); BILIRUBIN,TOTAL 0.3 mg/dL (0.2-1); BLOOD UREA NITROGEN 16 mg/dL (7-18); CALCIUM 8.2 mg/dL (8.5-10.1); CHLORIDE 108 mmol/L (98-107); CO2 25 mmol/L (21-32); CREATININE 1.2 mg/dL (0.55-1.3); GLUCOSE,RANDOM 76 mg/dL (74-106); POTASSIUM 4.1 mmol/L (3.5-5.1); SGOT/AST 17 U/L (15-37); SGPT/ALT 31 U/L (13-61); SODIUM 140 mmol/L (136-145); TOT PROT 6.2 g/dl (6.4-8.2)
[2018-03-27 11:28] LABS: HEMATOCRIT 43.4 % (35.4-49); HEMOGLOBIN 14.1 GM/dL (11.7-16.9); MCH 30.6 pg (25.7-33.7); MCHC 32.6 g/dl (32.0-35.9); MEAN CELL VOLUME 93.9 fl (80-96); PLATELET COUNT 230 K/MM3 (134-434); RBC 4.62 M/mm3 (4.00-5.60); RDW 13.3 % (11.9-15.9); WHITE BLOOD COUNT 7.6 K/mm3 (4.0-10.0)
[2018-03-27 11:53] LABS: URINE APPEARANCE TURBID; URINE BILIRUBIN NEGATIVE (<2.0 mg/dL); URINE COLOR YELLOW; URINE GLUCOSE (UA) NEGATIVE (NEGATIVE); URINE KETONE NEGATIVE (NEGATIVE); URINE LEUK ESTERASE NEGATIVE (NEGATIVE); URINE NITRITE NEGATIVE (NEGATIVE); URINE PROTEIN 2+ (NEGATIVE)
[2018-03-27 12:19] LABS: URINE BACTERIA MANY /hpf (NONE SEEN); URINE MUCUS MANY
--- NOTE | 2018-03-27 12:52 | PN ---
S CIWA - CIWA Score Nausea/Vomitin Muscle Tremors: 2 Anxiety: 2 Agitation: 2 Paroxysmal Sweats: 1-Minimal Palms Moist Orientation: 0-Oriented Tacttile Disturbances: 1-Very Mild Itch/Numbness Auditory Disturbances: 1-Very Mild Visual Disturbances: 0-None Headache: 2-Mild CIWA-Ar Total Score: 13 [facility] Progress Note (SOAP) Subjective: alert,irritable,anxious,interrupted sleep,tremor Objective: 03/27/18 12:51 Vital Signs Temperature 97.8 F 03/27/18 09:31 Pulse Rate 69 03/27/18 09:31 Respiratory Rate 18 03/27/18 09:31 Blood Pressure 124/77 03/27/18 09:31 O2 Sat by Pulse Oximetry (%) 03/27/18 12:51 Laboratory Last Values WBC 7.6 K/mm3 (4.0-10.0) 03/27/18 07:30 RBC 4.62 M/mm3 (4.00-5.60) 03/27/18 07:30 Hgb 14.1 GM/dL (11.7-16.9) 03/27/18 07:30 Hct 43.4 % (35.4-49) 03/27/18 07:30 MCV 93.9 fl (80-96) 03/27/18 07:30 MCH 30.6 pg (25.7-33.7) 03/27/18 07:30 MCHC 32.6 g/dl (32.0-35.9) 03/27/18 07:30 RDW 13.3 % (11.9-15.9) D 03/27/18 07:30 Plt Count 230 K/MM3 (134-434) D 03/27/18 07:30 MPV 9.0 fl (7.5-11.1) 03/27/18 07:30 Sodium 140 mmol/L (136-145) 03/27/18 07:30 Potassium 4.1 mmol/L (3.5-5.1) 03/27/18 07:30 Chloride 108 mmol/L (98-107) H 03/27/18 07:30 Carbon Dioxide 25 mmol/L (21-32) 03/27/18 07:30 Anion Gap 6 MMOL/L (8-16) L 03/27/18 07:30 BUN 16 mg/dL (7-18) 03/27/18 07:30 Creatinine 1.2 mg/dL (0.55-1.3) 03/27/18 07:30 Creat Clearance w eGFR > 60 (>60) 03/27/18 07:30 Random Glucose 76 mg/dL (74-106) 03/27/18 07:30 Calcium 8.2 mg/dL (8.5-10.1) L 03/27/18 07:30 Total Bilirubin 0.3 mg/dL (0.2-1) 03/27/18 07:30 AST 17 U/L (15-37) 03/27/18 07:30 ALT 31 U/L (13-61) 03/27/18 07:30 Alkaline Phosphatase 133 U/L (45-117) H 03/27/18 07:30 Total Protein 6.2 g/dl (6.4-8.2) L 03/27/18 07:30 Albumin 2.8 g/dl (3.4-5.0) L 03/27/18 07:30 Urine Color Yellow 03/27/18 08:46 Urine Appearance Turbid 03/27/18 08:46 Urine pH 5.0 (5.0-8.0) 03/27/18 08:46 Ur Specific [place] 1.028 (1.010-1.035) 03/27/18 08:46 Urine Protein 2+ (NEGATIVE) H 03/27/18 08:46 Urine Glucose (UA) Negative (NEGATIVE) 03/27/18 08:46 Urine Ketones Negative (NEGATIVE) 03/27/18 08:46 Urine Blood Negative (NEGATIVE) 03/27/18 08:46 Urine Nitrite Negative (NEGATIVE) 03/27/18 08:46 Urine Bilirubin Negative (<2.0 mg/dL) 03/27/18 08:46 Urine Urobilinogen 2.0 mg/dL (0.2-1.0) 03/27/18 08:46 Ur Leukocyte Esterase Negative (NEGATIVE) 03/27/18 08:46 Urine WBC (Auto) None /hpf (3-5) 03/27/18 08:46 Urine RBC (Auto) None /hpf (0-3) 03/27/18 08:46 Urine Bacteria Many /hpf (NONE SEEN) 03/27/18 08:46 Urine Mucus Many 03/27/18 08:46 RPR Titer Nonreactive (NONREACTIVE) 03/27/18 07:30 Assessment: 03/27/18 12:52 withdrawal symptom Plan: continue detox
[2018-03-27] MEDS: THIAMINE HCL 100 MG TABLET (FP) PO SCH (22:02)
[2018-03-28] MEDS: LISINOPRIL 10 MG TABLET (FP) PO SCH (10:19)
[2018-03-28] MEDS: diazePAM 5 MG TABLET PO SCH ×2 (10:20→22:29)
[2018-03-28] MEDS: PRENATAL VITAMINS W/ FOLIC ACID TABLET (FP) PO SCH (10:20)
--- NOTE | 2018-03-28 16:18 | PN ---
[facility] CIWA - CIWA Score Nausea/Vomitin-Mild Nausea/No Vomiting Muscle Tremors: 3 Anxiety: 3 Agitation: 3 Paroxysmal Sweats: 3 Orientation: 0-Oriented Tacttile Disturbances: 0-None Auditory Disturbances: 0-None Visual Disturbances: 0-None Headache: 0-None Present CIWA-Ar Total Score: 13 [facility] Progress Note (SOAP) Subjective: Sweating, chills, tremor Objective: 03/28/18 16:16 Last Vital Signs Temp Pulse Resp BP Pulse Ox 97.4 F L 91 H 2 L 127/83 03/28/18 13:49 03/28/18 13:49 03/28/18 13:49 03/28/18 13:49 Laboratory Tests 03/27/18 03/27/18 03/27/18 07:30 07:30 07:30 WBC 7.6 RBC 4.62 Hgb 14.1 Hct 43.4 MCV 93.9 MCH 30.6 MCHC 32.6 RDW 13.3 D Plt Count 230 D MPV 9.0 Sodium 140 Potassium 4.1 Chloride 108 H Carbon Dioxide 25 Anion Gap 6 L BUN 16 Creatinine 1.2 Creat Clearance w eGFR > 60 Random Glucose 76 Calcium 8.2 L Total Bilirubin 0.3 AST 17 ALT 31 Alkaline Phosphatase 133 H Total Protein 6.2 L Albumin 2.8 L Urine Color Urine Appearance Urine pH Ur Specific [place] Urine Protein Urine Glucose (UA) Urine Ketones Urine Blood Urine Nitrite Urine Bilirubin Urine Urobilinogen Ur Leukocyte Esterase Urine WBC (Auto) Urine RBC (Auto) Urine Bacteria Urine Mucus RPR Titer Nonreactive 03/27/18 08:46 WBC RBC Hgb Hct MCV MCH MCHC RDW Plt Count MPV Sodium Potassium Chloride Carbon Dioxide Anion Gap BUN Creatinine Creat Clearance w eGFR Random Glucose Calcium Total Bilirubin AST ALT Alkaline Phosphatase Total Protein Albumin Urine Color Yellow Urine Appearance Turbid Urine pH 5.0 Ur Specific [place] 1.028 Urine Protein 2+ H Urine Glucose (UA) Negative Urine Ketones Negative Urine Blood Negative Urine Nitrite Negative Urine Bilirubin Negative Urine Urobilinogen 2.0 Ur Leukocyte Esterase Negative Urine WBC (Auto) None Urine RBC (Auto) None Urine Bacteria Many Urine Mucus Many RPR Titer Labs reviewed: abnormal UA Assessment: 03/28/18 16:17 Withdrawal symptoms Abnormal UA noted Plan: Continue detox Abnormal UA: encouraged PO water intake, repeat UA
[2018-03-28 20:26] LABS: URINE APPEARANCE CLEAR; URINE BILIRUBIN NEGATIVE (<2.0 mg/dL); URINE COLOR LTYELLOW; URINE GLUCOSE (UA) NEGATIVE (NEGATIVE); URINE KETONE NEGATIVE (NEGATIVE); URINE LEUK ESTERASE NEGATIVE (NEGATIVE); URINE NITRITE NEGATIVE (NEGATIVE); URINE PROTEIN NEGATIVE (NEGATIVE); URINE UROBILINOGEN NEGATIVE mg/dL (0.2-1.0)
[2018-03-28] MEDS: THIAMINE HCL 100 MG TABLET (FP) PO SCH (22:28)
[2018-03-29] MEDS: PRENATAL VITAMINS W/ FOLIC ACID TABLET (FP) PO SCH (09:50)
[2018-03-29] MEDS: diazePAM 5 MG TABLET PO SCH ×2 (09:50→22:13)
[2018-03-29] MEDS: LISINOPRIL 10 MG TABLET (FP) PO SCH (09:50)
[2018-03-29] MEDS: MELATONIN 5 MG TABLETS PO PRN (22:13)
[2018-03-29] MEDS: THIAMINE HCL 100 MG TABLET (FP) PO SCH (22:13)
[2018-03-30] MEDS ORDERED: diazePAM 5 MG TABLET PO SCH (10:00)
[2018-03-30] MEDS: PRENATAL VITAMINS W/ FOLIC ACID TABLET (FP) PO SCH (10:04)
[2018-03-30] MEDS: LISINOPRIL 10 MG TABLET (FP) PO SCH (10:04)
--- NOTE | 2018-03-30 15:23 | PN ---
[facility] Progress Note (SOAP) Subjective: Anxious, restless Objective: 03/30/18 15:22 Last Vital Signs Temp Pulse Resp BP Pulse Ox 97.5 F L 120 H 20 116/80 03/30/18 13:24 03/30/18 13:24 03/30/18 13:24 03/30/18 13:24 Tachycardia: pulse 120 (most likely due to anxiety and withdrawal), encouraged to drink plenty of water for hydration Laboratory Tests 03/27/18 03/27/18 03/27/18 07:30 07:30 07:30 WBC 7.6 RBC 4.62 Hgb 14.1 Hct 43.4 MCV 93.9 MCH 30.6 MCHC 32.6 RDW 13.3 D Plt Count 230 D MPV 9.0 Sodium 140 Potassium 4.1 Chloride 108 H Carbon Dioxide 25 Anion Gap 6 L BUN 16 Creatinine 1.2 Creat Clearance w eGFR > 60 Random Glucose 76 Calcium 8.2 L Total Bilirubin 0.3 AST 17 ALT 31 Alkaline Phosphatase 133 H Total Protein 6.2 L Albumin 2.8 L Urine Color Urine Appearance Urine pH Ur Specific [place] Urine Protein Urine Glucose (UA) Urine Ketones Urine Blood Urine Nitrite Urine Bilirubin Urine Urobilinogen Ur Leukocyte Esterase Urine WBC (Auto) Urine RBC (Auto) Urine Bacteria Urine Mucus RPR Titer Nonreactive 03/27/18 03/28/18 08:46 06:48 WBC RBC Hgb Hct MCV MCH MCHC RDW Plt Count MPV Sodium Potassium Chloride Carbon Dioxide Anion Gap BUN Creatinine Creat Clearance w eGFR Random Glucose Calcium Total Bilirubin AST ALT Alkaline Phosphatase Total Protein Albumin Urine Color Yellow Ltyellow Urine Appearance Turbid Clear Urine pH 5.0 5.0 Ur Specific [place] 1.028 1.019 Urine Protein 2+ H Negative Urine Glucose (UA) Negative Negative Urine Ketones Negative Negative Urine Blood Negative Negative Urine Nitrite Negative Negative Urine Bilirubin Negative Negative Urine Urobilinogen 2.0 Negative Ur Leukocyte Esterase Negative Negative Urine WBC (Auto) None Urine RBC (Auto) None Urine Bacteria Many Urine Mucus Many RPR Titer Labs reviewed Assessment: 03/30/18 15:22 Withdrawal symptoms Plan: Continue detox Encouraged PO water intake
[2018-03-30] MEDS: THIAMINE HCL 100 MG TABLET (FP) PO SCH (22:16)
[2018-03-30] MEDS: MELATONIN 5 MG TABLETS PO PRN (22:16)
[2018-03-30 22:35] VITALS: PULSE 91
[2018-03-31 06:40] VITALS: BP 112/65; TEMP 97.6
--- NOTE | 2018-03-31 17:14 | DS ---
[facility] Detox Discharge Summary Admission Date: 03/26/18 Discharge Date: 03/31/18 - History Present History: Alcohol Dependence Additional Comments: PATIENT RETURNING HOME. PATIENT REFERRED TO [facility] ([place], [place]) FOR AFTERCARE. PATIENT WAS DISCHARGED FROM DETOX UNIT IN STABLE MEDICAL CONDITION. Pertinent Past History: HIV, Nicotine Dependence, History of Asthma. - Physical Exam Results Vital Signs: Vital Signs Temperature 97.6 F 03/31/18 06:40 Pulse Rate 91 H 03/31/18 06:40 Respiratory Rate 18 03/31/18 06:40 Blood Pressure 112/65 03/31/18 06:40 O2 Sat by Pulse Oximetry (%) Pertinent Admission Physical Exam Findings: WITHDRAWAL SYMPTOMS. Laboratory Tests 03/27/18 03/27/18 03/27/18 07:30 07:30 07:30 WBC 7.6 RBC 4.62 Hgb 14.1 Hct 43.4 MCV 93.9 MCH 30.6 MCHC 32.6 RDW 13.3 D Plt Count 230 D MPV 9.0 Sodium 140 Potassium 4.1 Chloride 108 H Carbon Dioxide 25 Anion Gap 6 L BUN 16 Creatinine 1.2 Creat Clearance w eGFR > 60 Random Glucose 76 Calcium 8.2 L Total Bilirubin 0.3 AST 17 ALT 31 Alkaline Phosphatase 133 H Total Protein 6.2 L Albumin 2.8 L Urine Color Urine Appearance Urine pH Ur Specific [place] Urine Protein Urine Glucose (UA) Urine Ketones Urine Blood Urine Nitrite Urine Bilirubin Urine Urobilinogen Ur Leukocyte Esterase Urine WBC (Auto) Urine RBC (Auto) Urine Bacteria Urine Mucus RPR Titer Nonreactive 03/27/18 03/28/18 08:46 06:48 WBC RBC Hgb Hct MCV MCH MCHC RDW Plt Count MPV Sodium Potassium Chloride Carbon Dioxide Anion Gap BUN Creatinine Creat Clearance w eGFR Random Glucose Calcium Total Bilirubin AST ALT Alkaline Phosphatase Total Protein Albumin Urine Color Yellow Ltyellow Urine Appearance Turbid Clear Urine pH 5.0 5.0 Ur Specific [place] 1.028 1.019 Urine Protein 2+ H Negative Urine Glucose (UA) Negative Negative Urine Ketones Negative Negative Urine Blood Negative Negative Urine Nitrite Negative Negative Urine Bilirubin Negative Negative Urine Urobilinogen 2.0 Negative Ur Leukocyte Esterase Negative Negative Urine WBC (Auto) None Urine RBC (Auto) None Urine Bacteria Many Urine Mucus Many RPR Titer LABS NOTED. - Treatment Hospital Course: Detox Protocol Followed, Detoxed Safely, Responded well, Discharged Condition Good Patient has Accepted a Rehab Referral to: PT REFERRED TO [facility] ([place], [place]). - Medication Discharge Medications: Ambulatory Orders Albuterol Sulfate Inhaler - [Ventolin HFA Inhaler -] 2 inh IH PRN PRN #1 inhaler 09/17/17 Lisinopril [Prinivil] 10 mg PO DAILY #30 tablet 09/17/17 Emtricitab/Rilpiviri/Tenof Ala [Odefsey Tablet] 1 each PO DAILY 03/26/18 Quetiapine Fumarate "Xr" [Seroquel XR] 100 mg PO HS 03/26/18 - Diagnosis (1) Alcohol dependence with uncomplicated withdrawal Status: Acute (2) Nicotine dependence Status: Chronic Qualifiers: Nicotine product type: cigarettes Substance use status: in withdrawal Qualified Code(s): F17.213 - Nicotine dependence, cigarettes, with withdrawal - AMA Did Patient Leave Against Medical Advice: No
== END 2018-03-31 09:08 | disposition home or self-care (01) | DRG 775 ==
LOC: YASAS 14:12 → Y3N 20:24
PROC: HZ2ZZZZ Detoxification Services for Substance Abuse Treatment (ICD-10-PCS; principal; 2018-03-27)
DX: F10.230 Alcohol dependence with withdrawal, uncomplicated (principal); F17.213 Nicotine dependence, cigarettes, with withdrawal; I10 Essential (primary) hypertension; Z21 Asymptomatic human immunodeficiency virus [HIV] infection status; J45.909 Unspecified asthma, uncomplicated; R82.90 Unspecified abnormal findings in urine; R00.0 Tachycardia, unspecified
CPT/HCPCS: 36415; 80053; 81003; 81015; 85027; 86593; J0735

== ENCOUNTER 2018-08-06 13:00 | Inpatient (IN) | payer OTHER ==
[2018-08-06 14:18] VITALS: BMI 27.2
--- NOTE | 2018-08-06 16:03 | HP ---
CIWA Score Nausea/Vomitin-No Nausea/No Vomiting Muscle Tremors: 1-None Visible, but [place] Anxiety: 4-Mod. Anxious/Guarded Agitation: 4-Moderately Restless Paroxysmal Sweats: No Perspiration Orientation: 0-Oriented Tacttile Disturbances: 2-Mild Itch/Numbness/Burn Auditory Disturbances: 0-None Visual Disturbances: 0-None Headache: 3-Moderate CIWA-Ar Total Score: 14 - Admission Criteria OASAS Guidelines: Admission for Medically Managed Detox: Requires at least one of the followin. CIWA greater than 12 2. Seizures within the past 24 hours 3. Delirium tremens within the past 24 hours 4. Hallucinations within the past 24 hours 5. Acute intervention needed for co occurring medical disorder 6. Acute intervention needed for co occurring psychiatric disorder 7. Severe withdrawal that cannot be handled at a lower level of care (continued vomiting, continued diarrhea, abnormal vital signs) requiring intravenous medication and/or fluids 8. Admission ROS S - [facility] Chief Complaint: ETOH WITHDRAWAL SYMPTOMS AND COCAINE DEPENDENCE. Allergies/Adverse Reactions: Allergies Allergy/AdvReac Type Severity Reaction Status Date / Time No Known Drug Allergies Allergy Verified 08/06/18 14:08 togolese nuts Allergy Intermediate Swelling Uncoded 08/06/18 14:08 History of Present Illness: PATIENT PRESENTS WITH ETOH WITHDRAWAL SYMPTOMS AND COCAINE DEPENDENCE. PATIENT IS KNOWN TO [facility] DUE TO PREVIOUS ADMISSIONS. PATIENT REPORTS HE STARTED DRINKING AT AGE 14 AND DRINKS 1/5 OF VODKA DAILY, LAST DRINK EARLY THIS MORNING. PATIENT ALSO SNIFFS 1 BAG OF COCAINE 3-6 X/WEEK SINCE AGE 14, LAST USE 08/05/18. PATIENT DENIES HX OF SEIZURES AND BLACKOUTS. UDS + FILIPE, MET. ISTOP NEGATIVE. 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 PMH INCLUDES HTN, ANXIETY, INSOMNIA, HIV+ AND ASTHMA. PATIENT IS COMPLIANT WITH ALL MEDICATION AND HAS HIV MEDICATION IN HIS PROPERTY. PATIENT DENIES SI/HI AND SUICIDE ATTEMPTS. Exam Limitations: No Limitations - Ebola screening Have you traveled outside of the country in the last 21 days: No Have you had contact with anyone from an Ebola affected area: No Have you been sick,other than usual withdrawal symptoms: No Do you have a fever: No - Review of Systems Constitutional: Changes in sleep EENT: reports: No Symptoms Reported Respiratory: reports: No Symptoms reported Cardiac: reports: No Symptoms Reported GI: reports: Poor Fluid Intake, Abdominal cramping : reports: Frequency (DUE TO ETOH INTAKE) Musculoskeletal: reports: Back Pain, Joint Pain, Muscle Pain Integumentary: reports: No Symptoms Reported Neuro: reports: Headache, Numbness, Tingling, Tremors Endocrine: reports: No Symptoms Reported Hematology: reports: No Symptoms Reported Psychiatric: reports: Orientated x3, Anxious, other (RESTLESS AND IRRITABLE) Patient History - Patient Medical History Hx Anemia: No Hx Asthma: Yes Hx Chronic Obstructive Pulmonary Disease (COPD): No Hx Cancer: No Hx Cardiac Disorders: No Hx Congestive Heart Failure: No Hx Hypertension: No Hx Hypercholesterolemia: No Hx Pacemaker: No HX Cerebrovascular Accident: No Hx Seizures: No Hx Dementia: No Hx Diabetes: No Hx Gastrointestinal Disorders: No Hx Liver Disease: No Hx Genitourinary Disorders: No Hx Sexually Transmitted Disorders: No Hx Renal Disease (ESRD): No Hx Thyroid Disease: No Hx Human Immunodeficiency Virus (HIV): Yes (KOMAL) Hx Hepatitis C: No Hx Depression: No Hx Suicide Attempt: No Hx Bipolar Disorder: No Hx Schizophrenia: No Other Medical History: ANXIETY/SLEEP DISTURBANCE - Patient Surgical History Past Surgical History: Yes Hx Neurologic Surgery: No Hx Cataract Extraction: No Hx Cardiac Surgery: No Hx Lung Surgery: No Hx Breast Surgery: No Hx Breast Biopsy: No Hx Abdominal Surgery: No Hx Appendectomy: No Hx Cholecystectomy: No Hx Genitourinary Surgery: No Hx Orthopedic Surgery: Yes (Right ankle surgery 05/2017) Anesthesia Reaction: No - PPD History Previous Implant?: Yes Documented Results: Negative w/proof Date: 09/16/17 Results: omm PPD to be Administered?: No - Smoking Cessation Smoking history: Current every day smoker Have you smoked in the past 12 months: Yes Aproximately how many cigarettes per day: 8 Cigars Per Day: 0 Hx Chewing Tobacco Use: No Initiated information on smoking cessation: Yes 'Breaking Loose' booklet given: 08/06/18 - Substance & Tx. History Hx Alcohol Use: Yes Hx Substance Use: Yes Substance Use Type: Alcohol, Cocaine - Substances abused Alcohol Substance route: Oral Frequency: Daily Amount used: 1/5th Vodka, 6 beers ( 40 oz) Age of first use: 14 Date of last use: 08/06/18 Cocaine Substance route: Inhalation Frequency: 3-6 times per week Amount used: $20 Age of first use: 14 Date of last use: 08/05/18 Family Disease History - Family Disease History Family Disease History: Other: Grandparent (HTN), Father (), Mother ( ) Admission Physical Exam [facility] - Vital Signs Vital Signs: Vital Signs - 24 hr 08/06/18 08/06/18 14:05 14:59 Temperature 98 F 98 F Pulse Rate 88 88 Respiratory 18 18 Rate Blood Pressure 171/100 H 171/100 H - Physical General Appearance: Yes: Nourished, Appropriately Dressed, Irritable, Anxious HEENTM: Yes: EOMI, Hearing grossly Normal, Normocephalic, Normal Voice, LUZMA, Pharynx Normal Respiratory: Yes: Chest Non-Tender, Lungs Clear, Normal Breath Sounds, No Respiratory Distress, No Accessory Muscle Use Neck: Yes: No masses,lesions,Nodules, Supple, Trachea in good position Breast: Yes: Breast Exam Deferred Cardiology: Yes: Regular Rhythm, Regular Rate, S1, S2, Edema (TRACE EDEMA BLE) Abdominal: Yes: Normal Bowel Sounds, Non Tender, Soft Genitourinary: Yes: Frequency (DEPENDENT ON INTAKE OF ETOH) Back: Yes: Normal Inspection, Muscle Spasm Musculoskeletal: Yes: full range of Motion, Gait Steady, Back pain, Joint Stiffness, Muscle Pain Extremities: Yes: Normal Inspection, Normal Range of Motion, Non-Tender, Swelling (TRACE BLE EDEMA), 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: Yes: 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, Fully Oriented, Alert, Motor Strength 5/5, Normal Response, Numbness, Other Integumentary: Yes: Normal Color, Dry, Warm Lymphatic: Yes: Within Normal Limits - Diagnostic (1) Alcohol dependence with uncomplicated withdrawal Current Visit: No Status: Acute (2) Cocaine dependence, uncomplicated Current Visit: Yes Status: Chronic (3) Insomnia Current Visit: Yes Status: Chronic Qualifiers: Insomnia type: unspecified Qualified Code(s): G47.00 - Insomnia, unspecified (4) Asthma Current Visit: Yes Status: Chronic Qualifiers: Asthma complication type: unspecified (5) Essential (primary) hypertension Current Visit: Yes Status: Chronic (6) HIV (human immunodeficiency virus infection) Current Visit: No Status: Chronic Qualifiers: HIV symptom status: unspecified Qualified Code(s): B20 - Human immunodeficiency virus [HIV] disease Comment: patient does not have HIV medication upon admission encourage the patient to contact with his INfectious Disease provider or pharmacist for possible HIV medication during the detox (7) Nicotine dependence Current Visit: No Status: Chronic Qualifiers: Nicotine product type: cigarettes Substance use status: in withdrawal Qualified Code(s): F17.213 - Nicotine dependence, cigarettes, with withdrawal Cleared for Admission [facility] - Detox or Rehab [facility] Level of Care: Medically Managed Detox Regimen/Protocol: Librium Breathalyzer - Breathalyzer Breathalyzer: 0 Urine Drug Screen - Test Device Lot number: [id number] Expiration date: 03/05/20 - Control Is test valid?: Yes - Results Drug screen NEGATIVE: No Urine drug screen results: FILIPE-Cocaine, MET-Methamphetamine Inpatient Rehab Admission - Rehab Decision to Admit Inpatient rehab admission?: No
[2018-08-06] MEDS ORDERED: IBUPROFEN 400 MG TABLET (FP) PO PRN (16:11)
[2018-08-06] MEDS ORDERED: BISMUTH SUBSALICYLATE 524 MG/30 ML UD PO PRN (16:11)
[2018-08-06] MEDS ORDERED: MELATONIN 5 MG TABLETS PO PRN (16:11)
[2018-08-06] MEDS ORDERED: MAG HYDROX/AL HYDROX/SIMETH 30 ML UNIT-DOSE CUP PO PRN (16:11)
[2018-08-06] MEDS ORDERED: hydrOXYzine PAMOATE 25 MG CAPSULE (FP) PO PRN (16:11)
[2018-08-06] MEDS ORDERED: ACETAMINOPHEN 325 MG TABLET (FP) PO PRN (16:11)
[2018-08-06] MEDS ORDERED: MENTHOL/PHENOL 1 EACH UD MM PRN (16:11)
[2018-08-06] MEDS ORDERED: MAGNESIUM CITRATE 300 ML BOTTLE PO PRN (16:11)
[2018-08-06] MEDS ORDERED: MAGNESIUM HYDROX 2400MG/30ML ORAL SUSPENSION 30 ML CUP PO PRN (16:11)
[2018-08-06] MEDS ORDERED: NICOTINE POLACRILEX 2 MG GUM BUC PRN (16:11)
[2018-08-06] MEDS ORDERED: ALBUTEROL SO4 8 GM HFA INHALER IH PRN (16:13)
[2018-08-06] MEDS ORDERED: chlordiazePOXIDE HCL 25 MG CAPSULE PO PRN (16:18)
--- NOTE | 2018-08-06 18:18 | CONSULT ---
[facility] Psychiatric Consult - Data Date of interview: 08/06/18 Admission source: [facility] Identifying data: Patient is a 58 year old single male, father of one, unemployed, and is supported by [employer]. This is one of multiple admissions for patient. Patient admitted to for alcohol and cocaine dependence. Substance Abuse History: Smoking Cessation. Smoking history: Current every day smoker. Have you smoked in the past 12 months: Yes. Aproximately how many cigarettes per day: 8. Cigars Per Day: 0. Hx Chewing Tobacco Use: No. Initiated information on smoking cessation: Yes. 'Breaking Loose' booklet given : 08/06/18. - Substance & Tx. History. Hx Alcohol Use: Yes. Hx Substance Use : Yes. Substance Use Type: Alcohol, Cocaine. - Substances abused. Alcohol. Substance route: Oral. Frequency: Daily. Amount used: / Vodka, 6 beers ( 40 oz). Age of first use: 14. Date of last use: 08/06/18. Cocaine. Substance route: Inhalation. Frequency: 3-6 times per week. Amount used: $20. Age of first use: 14. Date of last use: 08/05/18 Medical History: Significant for asthma, HIV, Right ankle surgery 05/2017 Psychiatric History: Pt. denies h/o psychiatric hospitalization and suicide attempt. Mr. Ott reports that he receives outpatient psychiatric clinic at the [facility] and is prescribed seroquel 100mg. He reports a diagnosis of schizoaffective disorder. Patient presents as fatigue and lethargic. Mr. Ott stated to com writer, " I can't take the seroquel right now. The librium knocks me out." Patient denies auditory/visual hallucinatons. Physical/Sexual Abuse/Trauma History: denies. Mental Status Exam - Mental Status Exam Alert and Oriented to: Time, Place, Person Cognitive Function: Fair Patient Appearance: Well Groomed Mood: Withdrawn Affect: Mood Congruent Patient Behavior: Fatigued Speech Pattern: Delayed Voice Loudness: Moderately Soft/Quiet Thought Process: Goal Oriented Thought Disorder: Not Present Hallucinations: Denies Suicidal Ideation: Denies Homicidal Ideation: Denies Insight/Judgement: Poor Sleep: Fair Appetite: Fair Muscle strength/Tone: Normal Gait/Station: Normal Psychiatric Findings - Problem List ([place] 1, 2,3) (1) Cocaine dependence, uncomplicated Current Visit: Yes Status: Chronic (2) Alcohol dependence with uncomplicated withdrawal Current Visit: Yes Status: Acute (3) Substance induced mood disorder Current Visit: Yes Status: Acute (4) Schizoaffective disorder Current Visit: Yes Status: Suspected Qualifiers: Schizoaffective disorder type: unspecified Qualified Code(s): F25.9 - Schizoaffective disorder, unspecified Comment: Self-report. - Initial Treatment Plan Initial Treatment Plan: Psychoeducation provided. Detoxification in progress. Will not order Seroquel as patient stated "the librium knocks me out. I do not want the seroquel right now." Observation.
[2018-08-06] MEDS: chlordiazePOXIDE HCL 25 MG CAPSULE PO SCH (22:13)
[2018-08-06] MEDS: THIAMINE HCL 100 MG TABLET (FP) PO SCH (22:13)
[2018-08-07] MEDS: chlordiazePOXIDE HCL 25 MG CAPSULE PO SCH ×4 (06:19→22:26)
[2018-08-07] MEDS: EMTRICITAB/RILPIVIRI/TENOF ALA (ODEFSEY) TABLET PO SCH (07:27)
--- NOTE | 2018-08-07 08:26 | EKG ---
Test Reason : Blood Pressure : / mmHG Vent. Rate : 089 BPM Atrial Rate : 089 BPM P-R Int : 158 ms QRS Dur : 088 ms QT Int : 344 ms P-R-T Axes : 077 074 060 degrees QTc Int : 418 ms NORMAL SINUS RHYTHM MINIMAL VOLTAGE CRITERIA FOR LVH, MAY BE NORMAL VARIANT BORDERLINE ECG WHEN COMPARED WITH ECG OF 02-NOV-2017 14:49, NO SIGNIFICANT CHANGE WAS FOUND Confirmed by DELPHINE DAVIS, PAULA ([id number]) on 08/07/2018 8:25:57 AM Referred By: Confirmed By:PAULA AKERS MD
[2018-08-07 10:27] LABS: HEMATOCRIT 43.7 % (35.4-49); HEMOGLOBIN 14.4 GM/dL (11.7-16.9); MCHC 32.9 g/dl (32.0-35.9); MEAN CELL VOLUME 94.3 fl (80-96); MEAN PLT VOLUME 9.4 fl (7.5-11.1); PLATELET COUNT 244 K/MM3 (134-434); RBC 4.63 M/mm3 (4.00-5.60); RDW 14.2 % (11.9-15.9); WHITE BLOOD COUNT 7.6 K/mm3 (4.0-10.0)
[2018-08-07 10:44] LABS: EPI CELLS 1.1 /HPF (0-5/HPF); URINE APPEARANCE CLEAR; URINE BACTERIA 2.2 /hpf (NEGATIVE); URINE BILIRUBIN NEGATIVE (NEGATIVE); URINE CASTS 1 /lpf (0-8); URINE COLOR YELLOW; URINE GLUCOSE (UA) NEGATIVE (NEGATIVE); URINE KETONE NEGATIVE (NEGATIVE); URINE LEUK ESTERASE NEGATIVE (NEGATIVE); URINE NITRITE NEGATIVE (NEGATIVE); URINE PROTEIN 1+ (NEGATIVE); URINE RBC 2 /hpf (0-4); URINE UROBILINOGEN 0.2 mg/dL (0.2-1.0); URINE WBC 4 /hpf (0-5)
[2018-08-07] MEDS: LISINOPRIL 10 MG TABLET (FP) PO SCH (10:57)
[2018-08-07] MEDS: PRENATAL VITAMINS W/ FOLIC ACID TABLET (FP) PO SCH (10:57)
[2018-08-07] MEDS: NICOTINE 21 MG/24 HOURS TOPICAL PATCH TD SCH ×2 (10:58→11:02)
--- NOTE | 2018-08-07 11:10 | PN ---
[facility] CIWA - CIWA Score Nausea/Vomitin-No Nausea/No Vomiting Muscle Tremors: 2 Anxiety: 2 Agitation: 2 Paroxysmal Sweats: 4-Forehead w/Sweat Beads Orientation: 0-Oriented Tacttile Disturbances: 1-Very Mild Itch/Numbness Auditory Disturbances: 0-None Visual Disturbances: 0-None Headache: 2-Mild CIWA-Ar Total Score: 13 [facility] Progress Note (SOAP) Subjective: C/O sweats, Objective: 08/07/18 11:19 Vital Signs 08/07/18 08/07/18 08/07/18 03:22 05:59 09:33 Temperature 98 F 98.0 F Pulse Rate 98 H 100 H Respiratory 17 18 18 Rate Blood Pressure 158/90 156/80 vital signs reviewed, pt denies any chest pain/headache. 08/07/18 11:28 Assessment: 08/07/18 11:20 AOX3, in no respiratory distress EENT: WNL full ROM, ambulating in the unit. withdrawal symptoms persists. Plan: continue detox increase fluids
[2018-08-07 11:37] LABS: URINE CRYSTALS CALCIUM OXALATE /hpf
[2018-08-07 12:01] LABS: ALBUMIN 2.4 g/dl (3.4-5.0); ALK PHOS 108 U/L (45-117); ANION GAP 9 MMOL/L (8-16); BILIRUBIN,TOTAL 0.2 mg/dL (0.2-1); BLOOD UREA NITROGEN 13 mg/dL (7-18); CALCIUM 8.6 mg/dL (8.5-10.1); CHLORIDE 107 mmol/L (98-107); CO2 26 mmol/L (21-32); CREATININE 1.1 mg/dL (0.55-1.3); GLUCOSE,RANDOM 159 mg/dL (74-106); POTASSIUM 3.8 mmol/L (3.5-5.1); SGOT/AST 20 U/L (15-37); SGPT/ALT 22 U/L (13-61); SODIUM 142 mmol/L (136-145); TOT PROT 6.2 g/dl (6.4-8.2)
[2018-08-07] MEDS ORDERED: amLODIPine BESYLATE 5 MG TABLET (FP) PO ONE (19:24)
[2018-08-07] MEDS: THIAMINE HCL 100 MG TABLET (FP) PO SCH (22:26)
[2018-08-08] MEDS: chlordiazePOXIDE HCL 25 MG CAPSULE PO SCH ×3 (06:19→17:12)
[2018-08-08] MEDS: EMTRICITAB/RILPIVIRI/TENOF ALA (ODEFSEY) TABLET PO SCH (09:00)
[2018-08-08] MEDS: NICOTINE 21 MG/24 HOURS TOPICAL PATCH TD SCH (10:42)
[2018-08-08] MEDS: LISINOPRIL 10 MG TABLET (FP) PO SCH (10:42)
[2018-08-08] MEDS: PRENATAL VITAMINS W/ FOLIC ACID TABLET (FP) PO SCH (10:42)
--- NOTE | 2018-08-08 12:49 | PN ---
[facility] CIWA - CIWA Score Nausea/Vomitin-Mild Nausea/No Vomiting Muscle Tremors: 2 Anxiety: 4-Mod. Anxious/Guarded Agitation: 2 Paroxysmal Sweats: 2 Orientation: 0-Oriented Tacttile Disturbances: 0-None Auditory Disturbances: 0-None Visual Disturbances: 0-None Headache: 0-None Present CIWA-Ar Total Score: 11 [facility] Progress Note (SOAP) Subjective: Agitated, irritable, sweating. Patient requested lidex ointment for psoriasis stating he takes it at home. Objective: 08/08/18 12:44 Last Vital Signs Temp Pulse Resp BP Pulse Ox 99.5 F 122 H 19 157/95 08/08/18 10:23 08/08/18 10:23 08/08/18 10:23 08/08/18 10:23 Tachycardia most likely r/t withdrawal and agitation, has htn (on medication) Laboratory Tests 08/07/18 08/07/18 08/07/18 07:45 07:45 07:45 WBC RBC Hgb Hct MCV MCH MCHC RDW Plt Count MPV Sodium 142 Potassium 3.8 Chloride 107 Carbon Dioxide 26 Anion Gap 9 BUN 13 Creatinine 1.1 Creat Clearance w eGFR 68.52 Random Glucose 159 H Calcium 8.6 Total Bilirubin 0.2 AST 20 ALT 22 Alkaline Phosphatase 108 Total Protein 6.2 L Albumin 2.4 L Urine Color Yellow Urine Appearance Clear Urine pH 7.0 D Ur Specific [place] 1.020 Urine Protein 1+ H Urine Glucose (UA) Negative Urine Ketones Negative Urine Blood Negative Urine Nitrite Negative Urine Bilirubin Negative Urine Urobilinogen 0.2 Ur Leukocyte Esterase Negative Urine WBC (Auto) 4 Urine RBC (Auto) 2 Urine Casts (Auto) 1 U Epithel Cells (Auto) 1.1 Urine Crystals (Auto) Calcium oxalate Urine Bacteria (Auto) 2.2 RPR Titer Nonreactive 08/07/18 08:00 WBC 7.6 RBC 4.63 Hgb 14.4 Hct 43.7 MCV 94.3 MCH 31.0 MCHC 32.9 RDW 14.2 Plt Count 244 MPV 9.4 Sodium Potassium Chloride Carbon Dioxide Anion Gap BUN Creatinine Creat Clearance w eGFR Random Glucose Calcium Total Bilirubin AST ALT Alkaline Phosphatase Total Protein Albumin Urine Color Urine Appearance Urine pH Ur Specific [place] Urine Protein Urine Glucose (UA) Urine Ketones Urine Blood Urine Nitrite Urine Bilirubin Urine Urobilinogen Ur Leukocyte Esterase Urine WBC (Auto) Urine RBC (Auto) Urine Casts (Auto) U Epithel Cells (Auto) Urine Crystals (Auto) Urine Bacteria (Auto) RPR Titer Labs reviewed: abnormal ua noted, glucose 159 Assessment: 08/08/18 12:47 Withdrawal symptoms Noted with abnormal UA and hyperglycemia Plan: Continue detox Abnormal UA: encouraged PO water hydration, repeat UA Hyperglycemia: repeat fasting glucose, send HbA1c Lidex ointment bid for psoriaris (patient's request)
[2018-08-08] MEDS: FLUOCINONIDE 0.05% TOP OINT (60 GM TUBE) TP SCH (22:08)
[2018-08-08] MEDS: chlordiazePOXIDE HCL 10 MG CAPSULE PO SCH (22:08)
[2018-08-08] MEDS: THIAMINE HCL 100 MG TABLET (FP) PO SCH (22:08)
[2018-08-08] MEDS ORDERED: chlordiazePOXIDE HCL 10 MG CAPSULE PO PRN (23:00)
[2018-08-09] MEDS: chlordiazePOXIDE HCL 10 MG CAPSULE PO SCH ×3 (05:50→17:22)
[2018-08-09] MEDS: EMTRICITAB/RILPIVIRI/TENOF ALA (ODEFSEY) TABLET PO SCH (07:16)
[2018-08-09] MEDS: PRENATAL VITAMINS W/ FOLIC ACID TABLET (FP) PO SCH (10:06)
[2018-08-09] MEDS: FLUOCINONIDE 0.05% TOP OINT (60 GM TUBE) TP SCH ×2 (10:07→22:17)
[2018-08-09] MEDS: NICOTINE 21 MG/24 HOURS TOPICAL PATCH TD SCH (10:08)
[2018-08-09] MEDS: LISINOPRIL 10 MG TABLET (FP) PO SCH (10:09)
--- NOTE | 2018-08-09 11:52 | PN ---
[facility] CIWA - CIWA Score Nausea/Vomitin-No Nausea/No Vomiting Muscle Tremors: None Anxiety: 4-Mod. Anxious/Guarded Agitation: 2 Paroxysmal Sweats: 2 Orientation: 0-Oriented Tacttile Disturbances: 2-Mild Itch/Numbness/Burn Auditory Disturbances: 1-Very Mild Visual Disturbances: 2-Mild Sensitivity Headache: 0-None Present CIWA-Ar Total Score: 13 S Progress Note (SOAP) Subjective: Interrupted Sleep, Anxious, Restless, Sweating. Objective: PATIENT A & O X 3, OBSERVED AMBULATING ON UNIT UNASSISTED. IN NO ACUTE DISTRESS. 08/09/18 11:54 Vital Signs Temperature 98.2 F 08/09/18 09:23 Pulse Rate 112 H 08/09/18 09:23 Respiratory Rate 18 08/09/18 09:23 Blood Pressure 136/92 08/09/18 09:23 O2 Sat by Pulse Oximetry (%) Laboratory Tests 08/07/18 08/07/18 08/07/18 07:45 07:45 07:45 WBC RBC Hgb Hct MCV MCH MCHC RDW Plt Count MPV Sodium 142 Potassium 3.8 Chloride 107 Carbon Dioxide 26 Anion Gap 9 BUN 13 Creatinine 1.1 Creat Clearance w eGFR 68.52 Random Glucose 159 H Fasting Glucose Hemoglobin A1c % Calcium 8.6 Total Bilirubin 0.2 AST 20 ALT 22 Alkaline Phosphatase 108 Total Protein 6.2 L Albumin 2.4 L Urine Color Yellow Urine Appearance Clear Urine pH 7.0 D Ur Specific [place] 1.020 Urine Protein 1+ H Urine Glucose (UA) Negative Urine Ketones Negative Urine Blood Negative Urine Nitrite Negative Urine Bilirubin Negative Urine Urobilinogen 0.2 Ur Leukocyte Esterase Negative Urine WBC (Auto) 4 Urine RBC (Auto) 2 Urine Casts (Auto) 1 U Epithel Cells (Auto) 1.1 Urine Crystals (Auto) Calcium oxalate Urine Bacteria (Auto) 2.2 RPR Titer Nonreactive 08/07/18 08/09/18 08/09/18 08:00 07:00 07:00 WBC 7.6 RBC 4.63 Hgb 14.4 Hct 43.7 MCV 94.3 MCH 31.0 MCHC 32.9 RDW 14.2 Plt Count 244 MPV 9.4 Sodium Potassium Chloride Carbon Dioxide Anion Gap BUN Creatinine Creat Clearance w eGFR Random Glucose Fasting Glucose 140 H Hemoglobin A1c % 5.6 Calcium Total Bilirubin AST ALT Alkaline Phosphatase Total Protein Albumin Urine Color Urine Appearance Urine pH Ur Specific [place] Urine Protein Urine Glucose (UA) Urine Ketones Urine Blood Urine Nitrite Urine Bilirubin Urine Urobilinogen Ur Leukocyte Esterase Urine WBC (Auto) Urine RBC (Auto) Urine Casts (Auto) U Epithel Cells (Auto) Urine Crystals (Auto) Urine Bacteria (Auto) RPR Titer LABS NOTED. RESULTS OF FASTING GLUCOSE LEVEL AND OF HGB A1C NOTED. 08/09/18 11:56 Assessment: 08/09/18 11:54 WITHDRAWAL SYMPTOMS. Plan: CONTINUE DETOX. INCREASE DAILY PO FLUID INTAKE. PATIENT ADVISED TO FOLLOW-UP WITH ANALYTICAL RESEARCH CHEMIST AFTER DISCHARGE FORM DETOX UNIT FOR GENERAL MEDICAL ASSESSMENT AND FOR ELEVATED FASTING GLUCOSE LEVEL NOTED FROM EARLIER TODAY. PATIENT VERBALIZED UNDERSTANDING OF RECOMMENDATION. COPIES OF RESULTS OF ALL LABS DRAWN WHILE ADMITTED FOR DETOX GIVEN TO PATIENT AT TIME OF DISCHARGE FROM DETOX UNIT. PATIENT SCHEDULED FOR D/C TOMORROW.
[2018-08-09] MEDS: THIAMINE HCL 100 MG TABLET (FP) PO SCH (22:16)
[2018-08-09] MEDS ORDERED: chlordiazePOXIDE HCL 10 MG CAPSULE PO SCH (23:00)
[2018-08-10] MEDS: EMTRICITAB/RILPIVIRI/TENOF ALA (ODEFSEY) TABLET PO SCH (08:03)
[2018-08-10 08:09] VITALS: BP 121/79; PULSE 100; TEMP 96.6
--- NOTE | 2018-08-10 08:25 | DS ---
[facility] Detox Discharge Summary Admission Date: 08/06/18 Discharge Date: 08/10/18 - History Present History: Alcohol Dependence, Cannabis Dependence - Physical Exam Results Vital Signs: Vital Signs Temperature 96.6 F L 08/10/18 08:08 Pulse Rate 100 H 08/10/18 08:08 Respiratory Rate 20 08/10/18 08:08 Blood Pressure 121/79 08/10/18 08:08 O2 Sat by Pulse Oximetry (%) - Treatment Hospital Course: Detox Protocol Followed, Detoxed Safely, Responded well, Discharged Condition Good, Rehab Referral Accepted - Medication Discharge Medications: Ambulatory Orders Albuterol Sulfate Inhaler - [Ventolin HFA Inhaler -] 2 inh IH PRN PRN #1 inhaler 09/17/17 Lisinopril [Prinivil] 10 mg PO DAILY #30 tablet 09/17/17 Emtricitab/Rilpiviri/Tenof Ala [Odefsey Tablet] 1 each PO DAILY 03/26/18 Quetiapine Fumarate "Xr" [Seroquel XR] 100 mg PO HS 03/26/18 - Diagnosis (1) Alcohol dependence with uncomplicated withdrawal Current Visit: Yes Status: Chronic (2) Substance induced mood disorder Current Visit: Yes Status: Acute (3) Asthma Current Visit: Yes Status: Chronic Qualifiers: Asthma severity: mild Asthma complication type: unspecified (4) Cocaine dependence, uncomplicated Current Visit: Yes Status: Chronic (5) Essential (primary) hypertension Current Visit: Yes Status: Chronic (6) Insomnia Current Visit: Yes Status: Chronic Qualifiers: Insomnia type: unspecified Qualified Code(s): G47.00 - Insomnia, unspecified (7) Schizoaffective disorder Current Visit: Yes Status: Suspected Qualifiers: Schizoaffective disorder type: unspecified Qualified Code(s): F25.9 - Schizoaffective disorder, unspecified (8) Abnormal finding on urinalysis Current Visit: No Status: Acute (9) Eczema Current Visit: No Status: Chronic Qualifiers: Eczema type: flexural Qualified Code(s): L20.82 - Flexural eczema (10) HIV (human immunodeficiency virus infection) Current Visit: No Status: Chronic Qualifiers: HIV symptom status: unspecified Qualified Code(s): B20 - Human immunodeficiency virus [HIV] disease (11) Nicotine dependence Current Visit: Yes Status: Chronic Qualifiers: Nicotine product type: cigarettes Substance use status: in withdrawal Qualified Code(s): F17.213 - Nicotine dependence, cigarettes, with withdrawal - AMA Did Patient Leave Against Medical Advice: No ([facility])
== END 2018-08-10 09:05 | disposition home or self-care (01) | DRG 774 ==
LOC: YASAS 13:00 → Y6N 16:20
PROVIDERS: ADMIT Surgery; ATTEND Surgery
PROC: HZ2ZZZZ Detoxification Services for Substance Abuse Treatment (ICD-10-PCS; principal; 2018-08-06)
DX: F10.230 Alcohol dependence with withdrawal, uncomplicated (principal); F14.20 Cocaine dependence, uncomplicated; F17.213 Nicotine dependence, cigarettes, with withdrawal; F19.24 Other psychoactive substance dependence with psychoactive substance-induced mood disorder; F25.9 Schizoaffective disorder, unspecified; Z21 Asymptomatic human immunodeficiency virus [HIV] infection status; I10 Essential (primary) hypertension; L20.82 Flexural eczema; G47.00 Insomnia, unspecified; J45.20 Mild intermittent asthma, uncomplicated; R82.90 Unspecified abnormal findings in urine; R73.9 Hyperglycemia, unspecified
CPT/HCPCS: 36415; 80053; 81003; 82947; 83036; 85027; 86593; 93005; 93010

== ENCOUNTER 2018-08-23 11:24 | Inpatient (IN) | payer OTHER ==
[2018-08-23 19:58] VITALS: BMI 28.3
--- NOTE | 2018-08-23 23:58 | HP ---
CIWA Score Nausea/Vomitin (vomiting x 4) Muscle Tremors: 4-Moderate,w/Arms Extend Anxiety: 4-Mod. Anxious/Guarded Agitation: 2 Paroxysmal Sweats: 1-Minimal Palms Moist Orientation: 0-Oriented Tacttile Disturbances: 2-Mild Itch/Numbness/Burn Auditory Disturbances: 0-None Visual Disturbances: 0-None Headache: 2-Mild CIWA-Ar Total Score: 18 - Admission Criteria [facility]ASAS Guidelines: Admission for Medically Managed Detox: Requires at least one of the followin. CIWA greater than 12 2. Seizures within the past 24 hours 3. Delirium tremens within the past 24 hours 4. Hallucinations within the past 24 hours 5. Acute intervention needed for co occurring medical disorder 6. Acute intervention needed for co occurring psychiatric disorder 7. Severe withdrawal that cannot be handled at a lower level of care (continued vomiting, continued diarrhea, abnormal vital signs) requiring intravenous medication and/or fluids 8. Admission ROS [facility] Chief Complaint: Alcohol withdrawal symptoms Allergies/Adverse Reactions: Allergies Allergy/AdvReac Type Severity Reaction Status Date / Time No Known Drug Allergies Allergy Verified 08/23/18 19:51 vincentian nuts Allergy Intermediate Swelling Uncoded 08/23/18 19:51 History of Present Illness: 58 years old old male with a long history of alcohol dependence is seeking admission to detox. Patient has been in detox multiple times and reports insignificant period of sobriety. He has medical history of asthma, eczema, hypertension and HIV+ . He denies suicidal ideation at this time. Exam Limitations: No Limitations - Ebola screening Have you traveled outside of the country in the last 21 days: No (N) Have you had contact with anyone from an Ebola affected area: No Have you been sick,other than usual withdrawal symptoms: No Do you have a fever: No - Review of Systems Constitutional: Chills, Night Sweats EENT: reports: No Symptoms Reported Respiratory: reports: No Symptoms reported Cardiac: reports: No Symptoms Reported GI: reports: Nausea, Poor Appetite, Poor Fluid Intake, Vomiting, Abdominal cramping : reports: No Symptoms Reported Musculoskeletal: reports: Back Pain, Muscle Pain Integumentary: reports: Dryness, Flushing Neuro: reports: Tremors Endocrine: reports: No Symptoms Reported Hematology: reports: No Symptoms Reported Psychiatric: reports: No Sypmtoms Reported, Mood/Affect Appropiate, Orientated x3, Anxious Other Systems: Reviewed and Negative Patient History - Patient Medical History Hx Anemia: No Hx Asthma: Yes (Albuterol) Hx Chronic Obstructive Pulmonary Disease (COPD): No Hx Cancer: No Hx Cardiac Disorders: No Hx Congestive Heart Failure: No Hx Hypertension: Yes (Lisinopril) Hx Hypercholesterolemia: No Hx Pacemaker: No HX Cerebrovascular Accident: No Hx Seizures: No Hx Dementia: No Hx Diabetes: No Hx Gastrointestinal Disorders: No Hx Liver Disease: No Hx Genitourinary Disorders: No Hx Sexually Transmitted Disorders: No Hx Renal Disease (ESRD): No Hx Thyroid Disease: No Hx Human Immunodeficiency Virus (HIV): Yes (ODEFSEY) Hx Hepatitis C: No Hx Depression: No Hx Suicide Attempt: No Hx Bipolar Disorder: No Hx Schizophrenia: No Other Medical History: Eczema - Patient Surgical History Past Surgical History: Yes Hx Neurologic Surgery: No Hx Cataract Extraction: No Hx Cardiac Surgery: No Hx Lung Surgery: No Hx Breast Surgery: No Hx Breast Biopsy: No Hx Abdominal Surgery: No Hx Appendectomy: No Hx Cholecystectomy: No Hx Genitourinary Surgery: No Hx Orthopedic Surgery: Yes (Right ankle surgery 05/2017) Anesthesia Reaction: No - PPD History Previous Implant?: Yes Documented Results: Positive w/o proof Implanted On Prior R Admission?: Yes Date: 09/16/17 Results: omm PPD to be Administered?: No - Reproductive History Patient is a Female of Child Bearing Age (11 -55 yrs old): No (Male) - Smoking Cessation Smoking history: Current every day smoker Have you smoked in the past 12 months: Yes Aproximately how many cigarettes per day: 8 Cigars Per Day: 0 Hx Chewing Tobacco Use: No Initiated information on smoking cessation: Yes 'Breaking Loose' booklet given: 08/24/18 - Substance & Tx. History Hx Alcohol Use: Yes Hx Substance Use: No Substance Use Type: Alcohol Hx Substance Use Treatment: Yes ([facility]) - Substances abused Alcohol Substance route: Oral Frequency: Daily Amount used: 1/5th Vodka, 6 beers ( 40 oz) Age of first use: 14 Date of last use: 08/22/18 Cocaine Substance route: Inhalation Frequency: 3-6 times per week Amount used: $20 Age of first use: 14 Date of last use: 08/22/18 Family Disease History - Family Disease History Family Disease History: Other: Grandparent (HTN), Father (), Mother ( ) Admission Physical Exam S - Vital Signs Vital Signs: Vital Signs - 24 hr 08/23/18 19:53 Temperature 97.9 F Pulse Rate 99 H Respiratory 20 Rate Blood Pressure 150/85 - Physical General Appearance: Yes: Moderate Distress, Tremorous, Anxious HEENTM: Yes: Within Normal Limits Respiratory: Yes: Lungs Clear, Normal Breath Sounds, No Respiratory Distress Neck: Yes: Supple Breast: Yes: Breast Exam Deferred Cardiology: Yes: Tachycardia Abdominal: Yes: Within Normal Limits Genitourinary: Yes: Within Normal Limits Back: Yes: Normal Inspection Musculoskeletal: Yes: Within Normal Limits, Muscle Pain Extremities: Yes: Tremors Neurological: Yes: Alert, Normal Mood/Affect Integumentary: Yes: Warm Lymphatic: Yes: Within Normal Limits - Diagnostic (1) Alcohol dependence with uncomplicated withdrawal Current Visit: Yes Status: Chronic (2) Asthma Current Visit: Yes Status: Chronic Qualifiers: Asthma severity: mild Asthma complication type: unspecified (3) Cocaine dependence, uncomplicated Current Visit: Yes Status: Chronic (4) Eczema Current Visit: Yes Status: Chronic Qualifiers: Eczema type: flexural Qualified Code(s): L20.82 - Flexural eczema (5) Essential (primary) hypertension Current Visit: Yes Status: Chronic (6) HIV (human immunodeficiency virus infection) Current Visit: Yes Status: Chronic Qualifiers: HIV symptom status: unspecified Qualified Code(s): B20 - Human immunodeficiency virus [HIV] disease Comment: patient does not have HIV medication upon admission encourage the patient to contact with his INfectious Disease provider or pharmacist for possible HIV medication during the detox (7) Nicotine dependence Current Visit: Yes Status: Chronic Qualifiers: Nicotine product type: cigarettes Substance use status: in withdrawal Qualified Code(s): F17.213 - Nicotine dependence, cigarettes, with withdrawal Cleared for Admission S - Detox or Rehab [facility] Level of Care: Medically Managed Detox Regimen/Protocol: Librium Breathalyzer - Breathalyzer Breathalyzer: 0 Urine Drug Screen - Test Device Lot number: [id number] Expiration date: 07/04/19 - Control Is test valid?: Yes - Results Drug screen NEGATIVE: No Urine drug screen results: FILIPE-Cocaine, BZO-Benzodiazepines Inpatient Rehab Admission - Rehab Decision to Admit Inpatient rehab admission?: No
[2018-08-24] MEDS ORDERED: MAG HYDROX/AL HYDROX/SIMETH 30 ML UNIT-DOSE CUP PO PRN (00:10)
[2018-08-24] MEDS ORDERED: MAGNESIUM HYDROX 2400MG/30ML ORAL SUSPENSION 30 ML CUP PO PRN (00:10)
[2018-08-24] MEDS ORDERED: ACETAMINOPHEN 325 MG TABLET (FP) PO PRN ×2 (00:10)
[2018-08-24] MEDS ORDERED: BISMUTH SUBSALICYLATE 524 MG/30 ML UD PO PRN (00:10)
[2018-08-24] MEDS ORDERED: NICOTINE POLACRILEX 2 MG GUM BUC PRN (00:10)
[2018-08-24] MEDS ORDERED: MENTHOL/PHENOL 1 EACH UD MM PRN (00:10)
[2018-08-24] MEDS ORDERED: MAGNESIUM CITRATE 300 ML BOTTLE PO PRN (00:10)
[2018-08-24] MEDS ORDERED: chlordiazePOXIDE HCL 25 MG CAPSULE PO PRN (00:10)
[2018-08-24] MEDS ORDERED: METHOCARBAMOL 500 MG TABLET PO PRN (00:10)
[2018-08-24] MEDS ORDERED: hydrOXYzine PAMOATE 25 MG CAPSULE (FP) PO PRN (00:10)
[2018-08-24] MEDS ORDERED: IBUPROFEN 400 MG TABLET (FP) PO PRN (00:10)
[2018-08-24] MEDS ORDERED: ALBUTEROL SO4 8 GM HFA INHALER IH PRN (00:12)
[2018-08-24] MEDS: MELATONIN 5 MG TABLETS PO PRN (01:06)
[2018-08-24] MEDS: chlordiazePOXIDE HCL 25 MG CAPSULE PO SCH ×4 (06:29→22:06)
[2018-08-24] MEDS: PRENATAL VITAMINS W/ FOLIC ACID TABLET (FP) PO SCH (10:35)
[2018-08-24] MEDS: LISINOPRIL 10 MG TABLET (FP) PO SCH (10:35)
[2018-08-24] MEDS: NICOTINE 14 MG/24 HOURS TOPICAL PATCH TD SCH (10:35)
--- NOTE | 2018-08-24 11:44 | PN ---
[facility] CIWA - CIWA Score Nausea/Vomitin-Mild Nausea/No Vomiting Muscle Tremors: 3 Anxiety: 2 Agitation: 3 Paroxysmal Sweats: 1-Minimal Palms Moist Orientation: 2-Disoriented Date<2 days Tacttile Disturbances: 0-None Auditory Disturbances: 0-None Visual Disturbances: 0-None Headache: 1-Very Mild CIWA-Ar Total Score: 13 [facility] Progress Note (SOAP) Subjective: tired chronic joints pain resting on bed hesitate to talk about alcohol miscuse Objective: 08/24/18 11:43 Vital Signs Temperature 98.6 F 08/24/18 09:23 Pulse Rate 97 H 08/24/18 09:23 Respiratory Rate 18 08/24/18 09:23 Blood Pressure 135/79 08/24/18 09:23 O2 Sat by Pulse Oximetry (%) 08/24/18 11:43 lab 08/25/18 Assessment: 08/24/18 11:43 withdrawal sx Plan: continue detox
[2018-08-24] MEDS ORDERED: LIDOCAINE 5% TOPICAL PATCH TP SCH (11:45)
[2018-08-24] MEDS: FLUOCINONIDE 0.05% TOP OINT (60 GM TUBE) TP SCH ×3 (15:08→22:07)
--- NOTE | 2018-08-24 18:21 | CONSULT ---
[facility] Psychiatric Consult - Data Date of interview: 08/24/18 Admission source: [facility] Identifying data: Patient is approached at bedside for the psychiatric interview. Mr Ott declines. Appears sedated. Will reconsult as needed.
[2018-08-24] MEDS ORDERED: LIDOCAINE PATCH REMOVAL MC SCH (22:00)
[2018-08-24] MEDS: THIAMINE HCL 100 MG TABLET (FP) PO SCH (22:06)
[2018-08-25] MEDS: chlordiazePOXIDE HCL 25 MG CAPSULE PO SCH ×4 (06:11→22:07)
[2018-08-25] MEDS ORDERED: cloNIDine HCL 0.1 MG TABLET PO ONE (06:45)
[2018-08-25 10:32] LABS: HEMATOCRIT 46.3 % (35.4-49); HEMOGLOBIN 15.2 GM/dL (11.7-16.9); MCH 31.4 pg (25.7-33.7); MCHC 32.9 g/dl (32.0-35.9); MEAN CELL VOLUME 95.3 fl (80-96); MEAN PLT VOLUME 8.3 fl (7.5-11.1); PLATELET COUNT 335 K/MM3 (134-434); RBC 4.86 M/mm3 (4.00-5.60); RDW 14.4 % (11.9-15.9); WHITE BLOOD COUNT 8.6 K/mm3 (4.0-10.0)
[2018-08-25 10:47] LABS: ALBUMIN 2.8 g/dl (3.4-5.0); BILIRUBIN,TOTAL 0.3 mg/dL (0.2-1); POTASSIUM 4.2 mmol/L (3.5-5.1); TOT PROT 7.2 g/dl (6.4-8.2)
[2018-08-25] MEDS: LISINOPRIL 10 MG TABLET (FP) PO SCH (10:48)
[2018-08-25] MEDS: FLUOCINONIDE 0.05% TOP OINT (60 GM TUBE) TP SCH ×4 (10:48→22:07)
[2018-08-25] MEDS: PRENATAL VITAMINS W/ FOLIC ACID TABLET (FP) PO SCH (10:48)
[2018-08-25] MEDS: NICOTINE 14 MG/24 HOURS TOPICAL PATCH TD SCH (10:48)
--- NOTE | 2018-08-25 12:10 | PN ---
[facility] CIWA - CIWA Score Nausea/Vomitin-Mild Nausea/No Vomiting Muscle Tremors: 3 Anxiety: 2 Agitation: 2 Paroxysmal Sweats: 1-Minimal Palms Moist Orientation: 1-Uncertain about Date Tacttile Disturbances: 0-None Auditory Disturbances: 0-None Visual Disturbances: 0-None Headache: 0-None Present CIWA-Ar Total Score: 10 S Progress Note (SOAP) Subjective: feeling better today discuss risks of alcohol misuse Objective: 08/25/18 12:09 Vital Signs Temperature 97.4 F L 08/25/18 09:21 Pulse Rate 123 H 08/25/18 09:21 Respiratory Rate 18 08/25/18 09:21 Blood Pressure 141/84 08/25/18 09:21 O2 Sat by Pulse Oximetry (%) Laboratory Last Values WBC 8.6 K/mm3 (4.0-10.0) 08/25/18 07:00 RBC 4.86 M/mm3 (4.00-5.60) 08/25/18 07:00 Hgb 15.2 GM/dL (11.7-16.9) 08/25/18 07:00 Hct 46.3 % (35.4-49) 08/25/18 07:00 MCV 95.3 fl (80-96) 08/25/18 07:00 MCH 31.4 pg (25.7-33.7) 08/25/18 07:00 MCHC 32.9 g/dl (32.0-35.9) 08/25/18 07:00 RDW 14.4 % (11.9-15.9) 08/25/18 07:00 Plt Count 335 K/MM3 (134-434) D 08/25/18 07:00 MPV 8.3 fl (7.5-11.1) D 08/25/18 07:00 Sodium 139 mmol/L (136-145) 08/25/18 07:00 Potassium 4.2 mmol/L (3.5-5.1) 08/25/18 07:00 Chloride 103 mmol/L (98-107) 08/25/18 07:00 Carbon Dioxide 32 mmol/L (21-32) 08/25/18 07:00 Anion Gap 5 MMOL/L (8-16) L 08/25/18 07:00 BUN 11 mg/dL (7-18) 08/25/18 07:00 Creatinine 1.0 mg/dL (0.55-1.3) 08/25/18 07:00 Est GFR (CKD-EPI)AfAm 95.06 08/25/18 07:00 Est GFR (CKD-EPI)NonAf 82.02 08/25/18 07:00 Random Glucose 89 mg/dL (74-106) 08/25/18 07:00 Calcium 9.0 mg/dL (8.5-10.1) 08/25/18 07:00 Total Bilirubin 0.3 mg/dL (0.2-1) 08/25/18 07:00 AST 18 U/L (15-37) 08/25/18 07:00 ALT 25 U/L (13-61) 08/25/18 07:00 Alkaline Phosphatase 151 U/L (45-117) H 08/25/18 07:00 Total Protein 7.2 g/dl (6.4-8.2) 08/25/18 07:00 Albumin 2.8 g/dl (3.4-5.0) L 08/25/18 07:00 lab noted Assessment: 08/25/18 12:10 alcohol withdrawal sx Plan: continue detox
[2018-08-25] MEDS ORDERED: amLODIPine BESYLATE 10 MG TABLET (FP) PO SCH (13:00)
[2018-08-25] MEDS: LISINOPRIL 20 MG TABLET (FP) PO SCH (14:08)
[2018-08-25] MEDS: THIAMINE HCL 100 MG TABLET (FP) PO SCH (22:07)
[2018-08-25] MEDS: MELATONIN 5 MG TABLETS PO PRN (23:49)
[2018-08-26] MEDS ORDERED: chlordiazePOXIDE HCL 10 MG CAPSULE PO PRN (05:00)
[2018-08-26] MEDS: chlordiazePOXIDE HCL 10 MG CAPSULE PO SCH ×4 (05:07→23:02)
[2018-08-26] MEDS: LISINOPRIL 20 MG TABLET (FP) PO SCH (10:16)
[2018-08-26] MEDS: NICOTINE 14 MG/24 HOURS TOPICAL PATCH TD SCH (10:16)
[2018-08-26] MEDS: amLODIPine BESYLATE 10 MG TABLET (FP) PO SCH (10:16)
[2018-08-26] MEDS: FLUOCINONIDE 0.05% TOP OINT (60 GM TUBE) TP SCH ×4 (10:20→23:08)
[2018-08-26] MEDS: PRENATAL VITAMINS W/ FOLIC ACID TABLET (FP) PO SCH (10:21)
--- NOTE | 2018-08-26 11:39 | CONSULT ---
[facility] Psychiatric Consult - Data Date of interview: 08/26/18 Admission source: [facility] Identifying data: Patient approached this promotion writer today for psychiatric interview. " I was tired the other day. I could not speak to you. I need my seroquel at night ". This is one of multiple admissions to [facility] for this 58 y/o AA male, from descent, self-referred for detoxification (alcohol) . Patient is single without children, domiciled, unemployed and supported on [employer] funds. Substance Abuse History: Discussed in this interview. Details in current [facility] reportv as follows : Smoking history: Current every day smoker. Have you smoked in the past 12 months: Yes. Aproximately how many cigarettes per day: 8. Cigars Per Day: 0. Hx Chewing Tobacco Use: No. Initiated information on smoking cessation: Yes. 'Breaking Loose' booklet given: 08/24/18. - Substance & Tx. History. Hx Alcohol Use: Yes. Hx Substance Use: No. Substance Use Type : Alcohol. Hx Substance Use Treatment: Yes ([facility]). - Substances abused. Alcohol. Substance route: Oral. Frequency: Daily. Amount used: / Vodka, 6 beers ( 40 oz). Age of first use: 14. Date of last use: 08/22/18. Cocaine. Substance route: Inhalation. Frequency: 3-6 times per week. Amount used: $20. Age of first use: 14. Date of last use: 08/22/18 Medical History: Remarkable for anemia, eczema, HIV infection since 2002 (on ART agents), hypertension, past treatment for gonorrhea and a history of orthosurgery for fracture of right ankle (2018). Medical profile remains same. Psychiatric History: Patient denies history of psychiatric hospitalizations. Sees a psychiatrist at the [place] ([facility]) mental health clinic in [facility] for medication management (sporadic adherence to OPD care). Prescribed seroquel 100 mg/hs. Mr Ott endorses the diagnosis of Schizoaffective Disorder. Patient denies history of suicide attempts. Physical/Sexual Abuse/Trauma History: No history. Additional Comment: Urine drug screen results: FILIPE-Cocaine, BZO- Benzodiazepines. Noted. Mental Status Exam - Mental Status Exam Alert and Oriented to: Time, Place, Person Cognitive Function: Grossly Intact Patient Appearance: Well Groomed (eczematous lesions over uper extremities) Mood: Withdrawn, Apprehensive Affect: Mood Congruent, Constricted Patient Behavior: Fatigued, Appropriate, Cooperative (ambulatory, spontaneous and well-mannered) Speech Pattern: Clear, Appropriate Voice Loudness: Normal Thought Process: Goal Oriented Thought Disorder: Not Present Hallucinations: Denies Suicidal Ideation: Denies Homicidal Ideation: Denies Insight/Judgement: Poor Sleep: Fair Appetite: Good Muscle strength/Tone: Normal Gait/Station: Normal Psychiatric Findings - Problem List ([place] 1, 2,3) (1) Alcohol dependence with uncomplicated withdrawal Current Visit: Yes Status: Acute (2) Cocaine dependence, uncomplicated Current Visit: Yes Status: Chronic (3) Nicotine dependence Current Visit: Yes Status: Chronic Qualifiers: Nicotine product type: cigarettes Substance use status: in withdrawal Qualified Code(s): F17.213 - Nicotine dependence, cigarettes, with withdrawal (4) Substance induced mood disorder Current Visit: Yes Status: Chronic (5) Schizoaffective disorder Current Visit: Yes Status: Chronic Qualifiers: Schizoaffective disorder type: unspecified Qualified Code(s): F25.9 - Schizoaffective disorder, unspecified Comment: Self-report. (6) Insomnia Current Visit: Yes Status: Chronic Qualifiers: Insomnia type: unspecified Qualified Code(s): G47.00 - Insomnia, unspecified - Initial Treatment Plan Initial Treatment Plan: Psychoeducation. AA meetings. Sleep hygiene. Detoxification. Seroquel 50 mg po hs (reduced to avoid oversedation). Side effecst/benefits discussed with the patient. Mr Ott agrees with the plan. Observation.
--- NOTE | 2018-08-26 16:01 | PN ---
S CIWA - CIWA Score Nausea/Vomitin-No Nausea/No Vomiting Muscle Tremors: 2 Anxiety: 2 Agitation: 2 Paroxysmal Sweats: No Perspiration Orientation: 0-Oriented Tacttile Disturbances: 0-None Auditory Disturbances: 0-None Visual Disturbances: 0-None Headache: 0-None Present CIWA-Ar Total Score: 6 BHS Progress Note (SOAP) Subjective: mild tremor otherwise doing ok today discuss aftercare with staff encourage community self support group Objective: 08/26/18 16:01 Vital Signs Temperature 97.0 F L 08/26/18 14:19 Pulse Rate 93 H 08/26/18 14:19 Respiratory Rate 18 08/26/18 14:19 Blood Pressure 127/72 08/26/18 14:19 O2 Sat by Pulse Oximetry (%) Laboratory Last Values WBC 8.6 K/mm3 (4.0-10.0) 08/25/18 07:00 RBC 4.86 M/mm3 (4.00-5.60) 08/25/18 07:00 Hgb 15.2 GM/dL (11.7-16.9) 08/25/18 07:00 Hct 46.3 % (35.4-49) 08/25/18 07:00 MCV 95.3 fl (80-96) 08/25/18 07:00 MCH 31.4 pg (25.7-33.7) 08/25/18 07:00 MCHC 32.9 g/dl (32.0-35.9) 08/25/18 07:00 RDW 14.4 % (11.9-15.9) 08/25/18 07:00 Plt Count 335 K/MM3 (134-434) D 08/25/18 07:00 MPV 8.3 fl (7.5-11.1) D 08/25/18 07:00 Sodium 139 mmol/L (136-145) 08/25/18 07:00 Potassium 4.2 mmol/L (3.5-5.1) 08/25/18 07:00 Chloride 103 mmol/L (98-107) 08/25/18 07:00 Carbon Dioxide 32 mmol/L (21-32) 08/25/18 07:00 Anion Gap 5 MMOL/L (8-16) L 08/25/18 07:00 BUN 11 mg/dL (7-18) 08/25/18 07:00 Creatinine 1.0 mg/dL (0.55-1.3) 08/25/18 07:00 Est GFR (CKD-EPI)AfAm 95.06 08/25/18 07:00 Est GFR (CKD-EPI)NonAf 82.02 08/25/18 07:00 Random Glucose 89 mg/dL (74-106) 08/25/18 07:00 Calcium 9.0 mg/dL (8.5-10.1) 08/25/18 07:00 Total Bilirubin 0.3 mg/dL (0.2-1) 08/25/18 07:00 AST 18 U/L (15-37) 08/25/18 07:00 ALT 25 U/L (13-61) 08/25/18 07:00 Alkaline Phosphatase 151 U/L (45-117) H 08/25/18 07:00 Total Protein 7.2 g/dl (6.4-8.2) 08/25/18 07:00 Albumin 2.8 g/dl (3.4-5.0) L 08/25/18 07:00 RPR Titer Nonreactive (NONREACTIVE) 08/25/18 07:00 lab noted Assessment: 08/26/18 16:01 withdrawal sx Plan: continue detox
[2018-08-26] MEDS ORDERED: QUEtiapine FUMARATE 50 MG TABLET PO ONE (22:51)
[2018-08-26] MEDS: THIAMINE HCL 100 MG TABLET (FP) PO SCH (23:02)
[2018-08-27] MEDS ORDERED: chlordiazePOXIDE HCL 10 MG CAPSULE PO SCH (05:00)
[2018-08-27 09:20] VITALS: BP 134/77; PULSE 92; TEMP 98.4
[2018-08-27] MEDS: amLODIPine BESYLATE 10 MG TABLET (FP) PO SCH (10:31)
[2018-08-27] MEDS: PRENATAL VITAMINS W/ FOLIC ACID TABLET (FP) PO SCH (10:32)
[2018-08-27] MEDS: FLUOCINONIDE 0.05% TOP OINT (60 GM TUBE) TP SCH (10:32)
[2018-08-27] MEDS: LISINOPRIL 20 MG TABLET (FP) PO SCH (10:32)
[2018-08-27] MEDS: NICOTINE 14 MG/24 HOURS TOPICAL PATCH TD SCH (10:33)
--- NOTE | 2018-08-27 19:27 | DS ---
[facility] Detox Discharge Summary Admission Date: 08/23/18 Discharge Date: 08/27/18 - History Present History: Alcohol Dependence, Cocaine Dependence Additional Comments: PATIENT DENIES CURRENT WITHDRAWAL / DETOX SYMPTOMS AND REPORTS THAT HE FEELS WELL OVERALL AT TIME OF DISCHARGE FROM DETOX UNIT. PATIENT REFERRED TO [facility] ([place] [place]) FOR AFTERCARE. PATIENT DECLINED OFFER OF MEDICATION PRESCRIPTION FOR HOME MEDICATION AT TIME OF DISCHARGE FROM DETOX, NOTING THAT HE CURRENTLY HAS ADEQUATE SUPPLIES OF ALL PRESCRIBED HOME MEDICATIONS AT HOME. PATIENT WAS DISCHARGED FROM DETOX UNIT IN STABLE MEDICAL CONDITION. Pertinent Past History: Asthma, Eczema, HTN, Nicotine Dependence, H.I.V., Insomnia, Schizoaffective Disorder. - Physical Exam Results Vital Signs: Vital Signs Temperature 98.4 F 08/27/18 09:20 Pulse Rate 92 H 08/27/18 09:20 Respiratory Rate 18 08/27/18 09:20 Blood Pressure 134/77 08/27/18 09:20 O2 Sat by Pulse Oximetry (%) Pertinent Admission Physical Exam Findings: WITHDRAWAL SYMPTOMS. Laboratory Tests 08/25/18 08/25/18 08/25/18 07:00 07:00 07:00 WBC 8.6 RBC 4.86 Hgb 15.2 Hct 46.3 MCV 95.3 MCH 31.4 MCHC 32.9 RDW 14.4 Plt Count 335 D MPV 8.3 D Sodium 139 Potassium 4.2 Chloride 103 Carbon Dioxide 32 Anion Gap 5 L BUN 11 Creatinine 1.0 Est GFR (CKD-EPI)AfAm 95.06 Est GFR (CKD-EPI)NonAf 82.02 Random Glucose 89 Calcium 9.0 Total Bilirubin 0.3 AST 18 ALT 25 Alkaline Phosphatase 151 H Total Protein 7.2 Albumin 2.8 L RPR Titer Nonreactive LABS NOTED. - Treatment Hospital Course: Detox Protocol Followed, Detoxed Safely, Responded well, Discharged Condition Good Patient has Accepted a Rehab Referral to: PT. REFERRED TO [facility] ([place], [place]). - Medication Discharge Medications: Ambulatory Orders Albuterol Sulfate Inhaler - [Ventolin HFA Inhaler -] 2 inh IH PRN PRN #1 inhaler 09/17/17 Emtricitab/Rilpiviri/Tenof Ala [Odefsey Tablet] 1 each PO DAILY 03/26/18 Quetiapine Fumarate "Xr" [Seroquel XR] 100 mg PO HS 03/26/18 Lisinopril 20 mg PO DAILY 08/25/18 - Diagnosis (1) Alcohol dependence with uncomplicated withdrawal Status: Acute (2) Asthma Status: Chronic Qualifiers: Asthma severity: mild Asthma persistence: intermittent Asthma complication type: uncomplicated Qualified Code(s): J45.20 - Mild intermittent asthma, uncomplicated (3) Cocaine dependence, uncomplicated Status: Chronic (4) Eczema Status: Chronic Qualifiers: Eczema type: flexural Qualified Code(s): L20.82 - Flexural eczema (5) Essential (primary) hypertension Status: Chronic (6) HIV (human immunodeficiency virus infection) Status: Chronic Qualifiers: HIV symptom status: unspecified Qualified Code(s): B20 - Human immunodeficiency virus [HIV] disease (7) Nicotine dependence Status: Chronic Qualifiers: Nicotine product type: cigarettes Substance use status: in withdrawal Qualified Code(s): F17.213 - Nicotine dependence, cigarettes, with withdrawal (8) Schizoaffective disorder Status: Chronic Qualifiers: Schizoaffective disorder type: unspecified Qualified Code(s): F25.9 - Schizoaffective disorder, unspecified (9) Substance induced mood disorder Status: Chronic (10) Insomnia Status: Chronic Qualifiers: Insomnia type: unspecified Qualified Code(s): G47.00 - Insomnia, unspecified - AMA Did Patient Leave Against Medical Advice: No
== END 2018-08-27 11:22 | disposition home or self-care (01) | DRG 774 ==
LOC: YASAS 11:24 → Y3N 23:55
PROVIDERS: ADMIT Surgery; ATTEND Surgery
PROC: HZ2ZZZZ Detoxification Services for Substance Abuse Treatment (ICD-10-PCS; principal; 2018-08-23)
DX: F10.230 Alcohol dependence with withdrawal, uncomplicated (principal); F14.20 Cocaine dependence, uncomplicated; F17.213 Nicotine dependence, cigarettes, with withdrawal; F25.9 Schizoaffective disorder, unspecified; F19.24 Other psychoactive substance dependence with psychoactive substance-induced mood disorder; Z21 Asymptomatic human immunodeficiency virus [HIV] infection status; I10 Essential (primary) hypertension; J45.20 Mild intermittent asthma, uncomplicated; L20.82 Flexural eczema; G47.00 Insomnia, unspecified
CPT/HCPCS: 36415; 80053; 85027; 86593; J0735

== ENCOUNTER 2018-09-06 20:06 | Inpatient (IN) | payer OTHER ==
[2018-09-06 21:20] VITALS: BMI 27.2
--- NOTE | 2018-09-06 22:45 | HP ---
CIWA Score Nausea/Vomitin Muscle Tremors: 3 Anxiety: 2 Agitation: 2 Paroxysmal Sweats: 1-Minimal Palms Moist Orientation: 1-Uncertain about Date Tacttile Disturbances: 2-Mild Itch/Numbness/Burn Auditory Disturbances: 1-Very Mild Visual Disturbances: 1-Very Mild Sensitivity Headache: 1-Very Mild CIWA-Ar Total Score: 16 - Admission Criteria OASAS Guidelines: Admission for Medically Managed Detox: Requires at least one of the followin. CIWA greater than 12 2. Seizures within the past 24 hours 3. Delirium tremens within the past 24 hours 4. Hallucinations within the past 24 hours 5. Acute intervention needed for co occurring medical disorder 6. Acute intervention needed for co occurring psychiatric disorder 7. Severe withdrawal that cannot be handled at a lower level of care (continued vomiting, continued diarrhea, abnormal vital signs) requiring intravenous medication and/or fluids 8. Admission ROS S - HPI Chief Complaint: DEPENDENT ON ETOH AND COCAINE Allergies/Adverse Reactions: Allergies Allergy/AdvReac Type Severity Reaction Status Date / Time No Known Drug Allergies Allergy Verified 08/23/18 19:51 dominican nuts Allergy Intermediate Swelling Uncoded 08/23/18 19:51 History of Present Illness: THE PT. IS REQUESTING ADMISSION TO THE DETOX UNIT AND CAME FOR MEDICAL CLEARANCE Exam Limitations: No Limitations - Ebola screening Have you traveled outside of the country in the last 21 days: No (N) Have you had contact with anyone from an Ebola affected area: No Have you been sick,other than usual withdrawal symptoms: No Do you have a fever: No - Review of Systems Constitutional: See HPI, Malaise, Weakness EENT: reports: See HPI Respiratory: reports: See HPI Cardiac: reports: See HPI GI: reports: See HPI, Nausea, Abdominal cramping : reports: See HPI Musculoskeletal: reports: See HPI, Muscle Pain, Muscle Weakness Integumentary: reports: See HPI Neuro: reports: See HPI, Headache, Tremors, Weakness, Unsteady Gait Endocrine: reports: See HPI Hematology: reports: See HPI Psychiatric: reports: Depressed Patient History - Patient Medical History Hx Anemia: No Hx Asthma: Yes (Albuterol) Hx Chronic Obstructive Pulmonary Disease (COPD): No Hx Cancer: No Hx Cardiac Disorders: No Hx Congestive Heart Failure: No Hx Hypertension: Yes (Lisinopril) Hx Hypercholesterolemia: No Hx Pacemaker: No HX Cerebrovascular Accident: No Hx Seizures: No Hx Dementia: No Hx Diabetes: No Hx Gastrointestinal Disorders: No Hx Liver Disease: No Hx Genitourinary Disorders: No Hx Sexually Transmitted Disorders: No Hx Renal Disease (ESRD): No Hx Thyroid Disease: No Hx Human Immunodeficiency Virus (HIV): Yes (KOMAL) Hx Hepatitis C: No Hx Depression: No Hx Suicide Attempt: No Hx Bipolar Disorder: No Hx Schizophrenia: No - Patient Surgical History Past Surgical History: Yes Hx Neurologic Surgery: No Hx Cataract Extraction: No Hx Cardiac Surgery: No Hx Lung Surgery: No Hx Breast Surgery: No Hx Breast Biopsy: No Hx Abdominal Surgery: No Hx Appendectomy: No Hx Cholecystectomy: No Hx Genitourinary Surgery: No Hx Orthopedic Surgery: Yes (Right ankle surgery 05/2017) Anesthesia Reaction: No - PPD History Date: 09/16/17 Results: omm - Smoking Cessation Smoking history: Current every day smoker Have you smoked in the past 12 months: Yes Aproximately how many cigarettes per day: 8 Cigars Per Day: 0 Hx Chewing Tobacco Use: No Initiated information on smoking cessation: Yes 'Breaking Loose' booklet given: 09/06/18 - Substance & Tx. History Hx Alcohol Use: Yes Hx Substance Use: Yes Substance Use Type: Alcohol, Cocaine - Substances abused Alcohol Substance route: Oral Frequency: Daily Amount used: 1/5th Vodka, 6 beers ( 40 oz) Age of first use: 14 Date of last use: 09/06/18 Cocaine Substance route: Inhalation Frequency: 3-6 times per week Amount used: $20 Age of first use: 14 Date of last use: 09/06/18 Family Disease History - Family Disease History Family Disease History: Other: Grandparent (HTN), Father (), Mother ( ) Admission Physical Exam BHS - Vital Signs Vital Signs: Vital Signs - 24 hr 09/06/18 21:15 Temperature 98.5 F Pulse Rate 98 H Respiratory 20 Rate Blood Pressure 162/89 - Physical General Appearance: Yes: No Apparent Distress, Nourished, Appropriately Dressed HEENTM: Yes: Hearing grossly Normal, Normocephalic, Normal Voice, LUZMA, Pharynx Normal Respiratory: Yes: Chest Non-Tender, No Respiratory Distress, No Accessory Muscle Use, Rhonchi, Wheezing Neck: Yes: No masses,lesions,Nodules, Supple, Trachea in good position Breast: Yes: Breast Exam Deferred, Axillae without masses Cardiology: Yes: Regular Rhythm, S1, S2, Tachycardia Abdominal: Yes: Normal Bowel Sounds, Non Tender, Protuberent, Distended Back: Yes: Normal Inspection Musculoskeletal: Yes: full range of Motion, Muscle Pain, Muscle weakness Extremities: Yes: Normal Capillary Refill, Tremors, Swelling Neurological: Yes: Alert, Depressed Affect Integumentary: Yes: Warm, Moist Lymphatic: Yes: Within Normal Limits - Addiitonal Findings: THE PT. IS VERY SLEEPY AND CONSCIOUS AND ALERT UPON AWAKENING THERE IS DELAYED RESPONSE TO QUESTIONS - Diagnostic (1) Alcohol dependence with uncomplicated withdrawal Current Visit: No Status: Chronic (2) Asthma Current Visit: No Status: Chronic Qualifiers: Asthma severity: mild Asthma persistence: intermittent Asthma complication type: uncomplicated Qualified Code(s): J45.20 - Mild intermittent asthma, uncomplicated (3) Cocaine dependence, uncomplicated Current Visit: No Status: Chronic (4) Eczema Current Visit: No Status: Chronic Qualifiers: Eczema type: flexural Qualified Code(s): L20.82 - Flexural eczema (5) Essential (primary) hypertension Current Visit: No Status: Chronic (6) HIV (human immunodeficiency virus infection) Current Visit: No Status: Chronic Qualifiers: HIV symptom status: unspecified Qualified Code(s): B20 - Human immunodeficiency virus [HIV] disease Comment: patient does not have HIV medication upon admission encourage the patient to contact with his INfectious Disease provider or pharmacist for possible HIV medication during the detox (7) Nicotine dependence Current Visit: No Status: Chronic Qualifiers: Nicotine product type: cigarettes Substance use status: in withdrawal Qualified Code(s): F17.213 - Nicotine dependence, cigarettes, with withdrawal Cleared for Admission S - Detox or Rehab [facility] Level of Care: Medically Supervised Detox Regimen/Protocol: Librium Breathalyzer - Breathalyzer Breathalyzer: 0 Urine Drug Screen - Test Device Lot number: [id number] Expiration date: 07/04/19 - Control Is test valid?: Yes - Results Drug screen NEGATIVE: No Urine drug screen results: FILIPE-Cocaine, BZO-Benzodiazepines Inpatient Rehab Admission - Rehab Decision to Admit Inpatient rehab admission?: No
[2018-09-06] MEDS ORDERED: NICOTINE POLACRILEX 2 MG GUM BUC PRN (22:49)
[2018-09-06] MEDS ORDERED: ACETAMINOPHEN 325 MG TABLET (FP) PO PRN ×2 (22:49)
[2018-09-06] MEDS ORDERED: chlordiazePOXIDE HCL 10 MG CAPSULE PO PRN (22:49)
[2018-09-06] MEDS ORDERED: IBUPROFEN 400 MG TABLET (FP) PO PRN (22:49)
[2018-09-06] MEDS ORDERED: MAGNESIUM HYDROX 2400MG/30ML ORAL SUSPENSION 30 ML CUP PO PRN (22:49)
[2018-09-06] MEDS ORDERED: MAG HYDROX/AL HYDROX/SIMETH 30 ML UNIT-DOSE CUP PO PRN (22:49)
[2018-09-06] MEDS ORDERED: MELATONIN 5 MG TABLETS PO PRN (22:49)
[2018-09-06] MEDS ORDERED: MENTHOL/PHENOL 1 EACH UD MM PRN (22:49)
[2018-09-06] MEDS ORDERED: BISMUTH SUBSALICYLATE 524 MG/30 ML UD PO PRN (22:49)
[2018-09-06] MEDS ORDERED: MAGNESIUM CITRATE 300 ML BOTTLE PO PRN (22:49)
[2018-09-06] MEDS ORDERED: METHOCARBAMOL 500 MG TABLET PO PRN (22:49)
[2018-09-06] MEDS ORDERED: hydrOXYzine PAMOATE 25 MG CAPSULE (FP) PO PRN (22:49)
[2018-09-06] MEDS ORDERED: ALBUTEROL SO4 8 GM HFA INHALER IH PRN (22:50)
[2018-09-07] MEDS: chlordiazePOXIDE HCL 25 MG CAPSULE PO SCH ×3 (01:29→13:49)
--- NOTE | 2018-09-07 10:14 | PN ---
S CIWA - CIWA Score Nausea/Vomitin-No Nausea/No Vomiting Muscle Tremors: 3 Anxiety: 2 Agitation: 3 Paroxysmal Sweats: 2 Orientation: 0-Oriented Tacttile Disturbances: 0-None Auditory Disturbances: 0-None Visual Disturbances: 0-None Headache: 0-None Present CIWA-Ar Total Score: 10 S Progress Note (SOAP) Subjective: sweats anxiety body aches tired interrupted sleep Objective: 09/07/18 10:14 Vital Signs Temperature 97.8 F 09/07/18 09:31 Pulse Rate 93 H 09/07/18 09:31 Respiratory Rate 18 09/07/18 09:31 Blood Pressure 133/88 09/07/18 09:31 O2 Sat by Pulse Oximetry (%) pending labs aaox3 ambulating no acute distress Assessment: 09/07/18 10:14 mild withdrawal sx Plan: continue detox increase fluids pending lab results
[2018-09-07] MEDS: LISINOPRIL 20 MG TABLET (FP) PO SCH (10:35)
[2018-09-07] MEDS: PRENATAL VITAMINS W/ FOLIC ACID TABLET (FP) PO SCH (10:35)
[2018-09-07 10:36] LABS: HEMATOCRIT 45.2 % (35.4-49); HEMOGLOBIN 15.1 GM/dL (11.7-16.9); MCH 31.4 pg (25.7-33.7); MCHC 33.4 g/dl (32.0-35.9); MEAN PLT VOLUME 8.6 fl (7.5-11.1); PLATELET COUNT 310 K/MM3 (134-434); RBC 4.81 M/mm3 (4.00-5.60); RDW 13.8 % (11.9-15.9); WHITE BLOOD COUNT 6.8 K/mm3 (4.0-10.0)
[2018-09-07] MEDS: NICOTINE 14 MG/24 HOURS TOPICAL PATCH TD SCH (10:40)
[2018-09-07 10:43] LABS: ALBUMIN 2.8 g/dl (3.4-5.0); BILIRUBIN,TOTAL 0.2 mg/dL (0.2-1); CALCIUM 9.3 mg/dL (8.5-10.1); POTASSIUM 3.9 mmol/L (3.5-5.1); TOT PROT 7.1 g/dl (6.4-8.2)
[2018-09-07] MEDS: EMTRICITAB/RILPIVIRI/TENOF ALA (ODEFSEY) TABLET PO SCH (13:48)
[2018-09-07] MEDS: THIAMINE HCL 100 MG TABLET (FP) PO SCH (22:04)
[2018-09-07] MEDS: chlordiazePOXIDE 5 MG CAPSULE PO SCH (22:05)
[2018-09-08] MEDS: chlordiazePOXIDE 5 MG CAPSULE PO SCH ×2 (06:26→14:55)
--- NOTE | 2018-09-08 09:51 | PN ---
S CIWA - CIWA Score Nausea/Vomitin-No Nausea/No Vomiting Muscle Tremors: 3 Anxiety: 2 Agitation: 2 Paroxysmal Sweats: 2 Orientation: 0-Oriented Tacttile Disturbances: 0-None Auditory Disturbances: 0-None Visual Disturbances: 0-None Headache: 0-None Present CIWA-Ar Total Score: 9 S Progress Note (SOAP) Subjective: irritable tired sweats Objective: 09/08/18 09:50 Vital Signs Temperature 98.6 F 09/08/18 09:31 Pulse Rate 88 09/08/18 09:31 Respiratory Rate 18 09/08/18 09:31 Blood Pressure 126/88 09/08/18 09:31 O2 Sat by Pulse Oximetry (%) Laboratory Tests 09/07/18 09/07/18 09/07/18 07:00 07:00 07:00 WBC 6.8 RBC 4.81 Hgb 15.1 Hct 45.2 MCV 94.0 MCH 31.4 MCHC 33.4 RDW 13.8 Plt Count 310 MPV 8.6 Sodium 138 Potassium 3.9 Chloride 104 Carbon Dioxide 29 Anion Gap 5 L BUN 14 Creatinine 1.0 Est GFR (CKD-EPI)AfAm 95.06 Est GFR (CKD-EPI)NonAf 82.02 Random Glucose 87 Calcium 9.3 Total Bilirubin 0.2 AST 22 ALT 27 Alkaline Phosphatase 142 H Total Protein 7.1 Albumin 2.8 L RPR Titer Nonreactive labs noted aaox3 ambulating no acute distress Assessment: 09/08/18 09:50 mild withdrawals Plan: continue detox increase fluids
[2018-09-08] MEDS: PRENATAL VITAMINS W/ FOLIC ACID TABLET (FP) PO SCH (11:03)
[2018-09-08] MEDS: LISINOPRIL 20 MG TABLET (FP) PO SCH (11:03)
[2018-09-08] MEDS: NICOTINE 14 MG/24 HOURS TOPICAL PATCH TD SCH (11:03)
[2018-09-08] MEDS: EMTRICITAB/RILPIVIRI/TENOF ALA (ODEFSEY) TABLET PO SCH (11:04)
--- NOTE | 2018-09-08 13:09 | CONSULT ---
[facility] Psychiatric Consult - Data Date of interview: 09/08/18 (R) Admission source: Self-referred Identifying data: Mr Ott is a 58 years old single Black, unemployedreceiving SSI, homeless seeking detox treatment for alcohol and cocaine Substance Abuse History: Reports history of alcohol and cocaine use. Refer to addiction counselor's summary for further information Medical History: Significant for bronchial asthma, hypertension, hiv since 2002 , eczema and orthosurgery right ankle inn May 2017. Smokes 8 cigarettesdaily Psychiatric History: Reports being diagnosed with Schizoaffective Disorder in September 2011 and started on psychotropic medication. Reports currently receiving psychiatric outpatient treatment at [facility] and he is prescribed Seroquel 100 mg/hs. Denies previous psychiatric hospitalization or suicidal attempt. At present, denies experiencing psychotic, manic or depressive symptoms, S/H ideations. However, reports feeling irritable and sleeing poorly Physical/Sexual Abuse/Trauma History: Denies history of emotional, physical or sexual abuse as well as DV relationship. No service Additional Comment: Reports history of multiple previous arrests including 4 felony convictions Mental Status Exam - Mental Status Exam Alert and Oriented to: Time, Place, Person Patient Appearance: Well Groomed Mood: Irritable Patient Behavior: Cooperative Speech Pattern: Clear Voice Loudness: Normal Thought Process: Intact, Goal Oriented Hallucinations: Denies Suicidal Ideation: Denies Homicidal Ideation: Denies Insight/Judgement: Poor Sleep: Poorly Appetite: Good Muscle strength/Tone: Normal Gait/Station: Normal Psychiatric Findings - Problem List ([place] 1, 2,3) (1) Schizoaffective disorder Current Visit: No Status: Chronic Qualifiers: Schizoaffective disorder type: unspecified Qualified Code(s): F25.9 - Schizoaffective disorder, unspecified Comment: Self-report. (2) Substance induced mood disorder Current Visit: Yes Status: Acute (3) Substance-induced sleep disorder Current Visit: Yes Status: Acute (4) Alcohol dependence with uncomplicated withdrawal Current Visit: No Status: Acute (5) Cocaine dependence, uncomplicated Current Visit: No Status: Acute (6) Nicotine dependence Current Visit: No Status: Chronic Qualifiers: Nicotine product type: cigarettes Substance use status: in withdrawal Qualified Code(s): F17.213 - Nicotine dependence, cigarettes, with withdrawal (7) Asthma Current Visit: No Status: Chronic Qualifiers: Asthma severity: mild Asthma persistence: intermittent Asthma complication type: uncomplicated Qualified Code(s): J45.20 - Mild intermittent asthma, uncomplicated (8) Eczema Current Visit: No Status: Chronic Qualifiers: Eczema type: flexural Qualified Code(s): L20.82 - Flexural eczema (9) Essential (primary) hypertension Current Visit: No Status: Chronic (10) HIV (human immunodeficiency virus infection) Current Visit: No Status: Chronic Qualifiers: HIV symptom status: unspecified Qualified Code(s): B20 - Human immunodeficiency virus [HIV] disease Comment: patient does not have HIV medication upon admission encourage the patient to contact with his INfectious Disease provider or pharmacist for possible HIV medication during the detox - Initial Treatment Plan Initial Treatment Plan: 1) Continue Seroquel 100 mg po HS. 2) Continue inpatient detoxification
[2018-09-08] MEDS ORDERED: chlordiazePOXIDE HCL 10 MG CAPSULE PO PRN (21:00)
[2018-09-08] MEDS: chlordiazePOXIDE HCL 10 MG CAPSULE PO SCH (22:43)
[2018-09-08] MEDS: QUEtiapine FUMARATE 100 MG TABLET (FP) PO SCH (22:43)
[2018-09-08] MEDS: THIAMINE HCL 100 MG TABLET (FP) PO SCH (22:43)
[2018-09-09] MEDS: chlordiazePOXIDE HCL 10 MG CAPSULE PO SCH ×3 (05:57→21:43)
--- NOTE | 2018-09-09 09:51 | PN ---
S CIWA - CIWA Score Nausea/Vomitin-No Nausea/No Vomiting Muscle Tremors: 2 Anxiety: 1-Mildly Anxious Agitation: 2 Paroxysmal Sweats: No Perspiration Orientation: 0-Oriented Tacttile Disturbances: 0-None Auditory Disturbances: 0-None Visual Disturbances: 0-None Headache: 0-None Present CIWA-Ar Total Score: 5 BHS Progress Note (SOAP) Subjective: I feel better just tired Objective: 09/09/18 09:50 Vital Signs Temperature 97.8 F 09/09/18 09:24 Pulse Rate 92 H 09/09/18 09:24 Respiratory Rate 18 09/09/18 09:24 Blood Pressure 145/85 09/09/18 09:24 O2 Sat by Pulse Oximetry (%) aaox3 lying in bed no acute distress Assessment: 09/09/18 09:51 mild withdrawal sx Plan: continue detox increase fluids d/c in am
[2018-09-09] MEDS: NICOTINE 14 MG/24 HOURS TOPICAL PATCH TD SCH (10:08)
[2018-09-09] MEDS: LISINOPRIL 20 MG TABLET (FP) PO SCH (10:08)
[2018-09-09] MEDS: EMTRICITAB/RILPIVIRI/TENOF ALA (ODEFSEY) TABLET PO SCH (10:08)
[2018-09-09] MEDS: PRENATAL VITAMINS W/ FOLIC ACID TABLET (FP) PO SCH (10:08)
[2018-09-09] MEDS: QUEtiapine FUMARATE 100 MG TABLET (FP) PO SCH (21:43)
[2018-09-09] MEDS: THIAMINE HCL 100 MG TABLET (FP) PO SCH (21:43)
[2018-09-10 09:20] VITALS: BP 140/81; PULSE 92; TEMP 97.3
--- NOTE | 2018-09-10 09:38 | DS ---
[facility] Summary Admission Date: 09/06/18 Discharge Date: 09/10/18 - History Present History: Alcohol Dependence, Cocaine Dependence - Physical Exam Results Vital Signs: Vital Signs Temperature 97.3 F L 09/10/18 09:20 Pulse Rate 92 H 09/10/18 09:20 Respiratory Rate 18 09/10/18 09:20 Blood Pressure 140/81 09/10/18 09:20 O2 Sat by Pulse Oximetry (%) - Treatment Hospital Course: Detox Protocol Followed, Detoxed Safely, Responded well, Discharged Condition Good, Rehab Referral Accepted - Medication Discharge Medications: Ambulatory Orders Albuterol Sulfate Inhaler - [Ventolin HFA Inhaler -] 2 inh IH PRN PRN #1 inhaler 09/17/17 Quetiapine Fumarate "Xr" [Seroquel XR] 100 mg PO HS 03/26/18 Lisinopril 20 mg PO DAILY 08/25/18 - Diagnosis (1) Substance induced mood disorder Current Visit: Yes Status: Acute (2) Substance-induced sleep disorder Current Visit: Yes Status: Acute (3) Alcohol dependence with uncomplicated withdrawal Current Visit: Yes Status: Chronic (4) Cocaine dependence, uncomplicated Current Visit: Yes Status: Chronic (5) Asthma Current Visit: Yes Status: Chronic Qualifiers: Asthma severity: mild Asthma persistence: intermittent Asthma complication type: uncomplicated Qualified Code(s): J45.20 - Mild intermittent asthma, uncomplicated (6) Eczema Current Visit: Yes Status: Chronic Qualifiers: Eczema type: unspecified Qualified Code(s): L30.9 - Dermatitis, unspecified (7) Essential (primary) hypertension Current Visit: Yes Status: Chronic (8) HIV (human immunodeficiency virus infection) Current Visit: Yes Status: Chronic Qualifiers: HIV symptom status: unspecified (9) Insomnia Current Visit: Yes Status: Chronic Qualifiers: Insomnia type: unspecified Qualified Code(s): G47.00 - Insomnia, unspecified (10) Nicotine dependence Current Visit: Yes Status: Chronic Qualifiers: Nicotine product type: cigarettes Substance use status: uncomplicated Qualified Code(s): F17.210 - Nicotine dependence, cigarettes, uncomplicated (11) Schizoaffective disorder Current Visit: No Status: Chronic Qualifiers: Schizoaffective disorder type: unspecified Qualified Code(s): F25.9 - Schizoaffective disorder, unspecified (12) Substance induced mood disorder Current Visit: No Status: Chronic - AMA Did Patient Leave Against Medical Advice: No (pt declined rehab; pt states going home)
== END 2018-09-10 09:45 | disposition home or self-care (01) | DRG 774 ==
LOC: YASAS 20:06 → Y6N 23:56
PROVIDERS: ADMIT Surgery; ATTEND Surgery
PROC: HZ2ZZZZ Detoxification Services for Substance Abuse Treatment (ICD-10-PCS; principal; 2018-09-06)
DX: F10.230 Alcohol dependence with withdrawal, uncomplicated (principal); F14.20 Cocaine dependence, uncomplicated; F17.210 Nicotine dependence, cigarettes, uncomplicated; F19.24 Other psychoactive substance dependence with psychoactive substance-induced mood disorder; F19.282 Other psychoactive substance dependence with psychoactive substance-induced sleep disorder; F25.9 Schizoaffective disorder, unspecified; Z21 Asymptomatic human immunodeficiency virus [HIV] infection status; G47.00 Insomnia, unspecified; I10 Essential (primary) hypertension; J45.20 Mild intermittent asthma, uncomplicated; L30.9 Dermatitis, unspecified
CPT/HCPCS: 36415; 80053; 85027; 86593

== ENCOUNTER 2018-11-15 10:27 | Inpatient (IN) | payer OTHER ==
[2018-11-15 14:26] VITALS: BMI 26.9
--- NOTE | 2018-11-15 14:55 | HP ---
CIWA Score Nausea/Vomitin-No Nausea/No Vomiting Muscle Tremors: 1-None Visible, but [place] Anxiety: 4-Mod. Anxious/Guarded Agitation: 4-Moderately Restless Paroxysmal Sweats: 1-Minimal Palms Moist Orientation: 1-Uncertain about Date Tacttile Disturbances: 3-Moderate Itch/Numb/Burn Auditory Disturbances: 0-None Visual Disturbances: 0-None Headache: 0-None Present CIWA-Ar Total Score: 14 - Admission Criteria OASAS Guidelines: Admission for Medically Managed Detox: Requires at least one of the followin. CIWA greater than 12 2. Seizures within the past 24 hours 3. Delirium tremens within the past 24 hours 4. Hallucinations within the past 24 hours 5. Acute intervention needed for co occurring medical disorder 6. Acute intervention needed for co occurring psychiatric disorder 7. Severe withdrawal that cannot be handled at a lower level of care (continued vomiting, continued diarrhea, abnormal vital signs) requiring intravenous medication and/or fluids 8. Admission ROS [facility] Chief Complaint: PATIENT PRESENTS FOR ETOH WITHDRAWAL SYMPTOMS Allergies/Adverse Reactions: Allergies Allergy/AdvReac Type Severity Reaction Status Date / Time No Known Drug Allergies Allergy Verified 11/15/18 14:17 uzbek nuts Allergy Intermediate Swelling Uncoded 11/15/18 14:17 History of Present Illness: PATIENT IS KNOWN TO [facility] DUE TO MULTIPLE ADMISSIONS WITH LAST ADMISSION 09/2018. PATIENT PRESENT TODAY WITH ETOH WITHDRAWAL SYMPTOMS. PATIENT STATES HE DRINKS 6 20 OUNCE BEERS DAILY WITH LAST DRINK AT 2 AM. PATIENT STATES HE RELAPSE SOON AFTER PREVIOUS ADMISSION AND HE DID NOT ATTEND ANY AA/NA GROUP MEETINGS. PATIENT DENIES HX OF SEIZURES AND EYE CAFE LEAD. + HX OF BLACKOUTS. ALSO REPORTS SNIFFING COCAINE, 1GRAM 3-4 TIMES A WEEK WITH LAST USE LAST NIGHT. PMH INCLUDES HIV (NONCOMPLIANT WITH MEDICATION), ASTHMA AND HTN. HE DENIES HX OF MENTAL ILLNESS AND SI/HI AT THIS TIME. Exam Limitations: No Limitations - Ebola screening Have you traveled outside of the country in the last 21 days: No Have you had contact with anyone from an Ebola affected area: No Have you been sick,other than usual withdrawal symptoms: No Do you have a fever: No - Review of Systems Constitutional: No Symptoms Reported EENT: reports: Dental Problems (POOR DENTITION) Respiratory: reports: No Symptoms reported Cardiac: reports: No Symptoms Reported GI: reports: Poor Fluid Intake : reports: No Symptoms Reported Musculoskeletal: reports: Joint Pain, Muscle Pain Integumentary: reports: Rash, Other (MOISTURE TO HANDS) Neuro: reports: Numbness, Tingling Endocrine: reports: No Symptoms Reported Hematology: reports: No Symptoms Reported Psychiatric: reports: Anxious, other (FORGETFUL WITH DATE, STATED 11/13/18) Patient History - Patient Medical History Hx Anemia: No Hx Asthma: Yes (Albuterol) Hx Chronic Obstructive Pulmonary Disease (COPD): No Hx Cancer: No Hx Cardiac Disorders: No Hx Congestive Heart Failure: No Hx Hypertension: Yes (Lisinopril) Hx Hypercholesterolemia: No Hx Pacemaker: No HX Cerebrovascular Accident: No Hx Seizures: No Hx Dementia: No Hx Diabetes: No Hx Gastrointestinal Disorders: No Hx Liver Disease: No Hx Genitourinary Disorders: No Hx Sexually Transmitted Disorders: No Hx Renal Disease (ESRD): No Hx Thyroid Disease: No Hx Human Immunodeficiency Virus (HIV): Yes (ODEFSEY BUT NONCOMPLIANT WITH MEDICATION) Hx Hepatitis C: No Hx Depression: No Hx Suicide Attempt: No Hx Bipolar Disorder: No Hx Schizophrenia: No - Patient Surgical History Past Surgical History: Yes Hx Neurologic Surgery: No Hx Cataract Extraction: No Hx Cardiac Surgery: No Hx Lung Surgery: No Hx Breast Surgery: No Hx Breast Biopsy: No Hx Abdominal Surgery: No Hx Appendectomy: No Hx Cholecystectomy: No Hx Genitourinary Surgery: No Hx Orthopedic Surgery: Yes (Right ankle surgery 05/2017) Anesthesia Reaction: No - PPD History Previous Implant?: Yes Documented Results: Negative w/proof Date: 09/16/17 Results: omm PPD to be Administered?: No - Smoking Cessation Smoking history: Current every day smoker Have you smoked in the past 12 months: Yes Aproximately how many cigarettes per day: 8 Cigars Per Day: 0 Hx Chewing Tobacco Use: No Initiated information on smoking cessation: Yes 'Breaking Loose' booklet given: 11/16/18 - Substance & Tx. History Hx Alcohol Use: Yes Hx Substance Use: Yes Substance Use Type: Alcohol, Cocaine Hx Substance Use Treatment: Yes - Substances abused Alcohol Substance route: Oral Frequency: Daily Amount used: 6 beers ( 40 oz) Age of first use: 14 Date of last use: 11/15/18 Cocaine Substance route: Inhalation Frequency: 3-6 times per week Amount used: unknown Age of first use: 24 Date of last use: 11/13/18 Family Disease History - Family Disease History Family Disease History: Other: Grandparent (HTN), Father (), Mother ( ) Admission Physical Exam [facility] - Vital Signs Vital Signs: Vital Signs - 24 hr 11/15/18 14:19 Temperature 98.3 F Pulse Rate 97 H Respiratory 18 Rate Blood Pressure 158/96 - Physical General Appearance: Yes: Disheveled, Sweating, Anxious HEENTM: Yes: EOMI, Hearing grossly Normal, Normocephalic, Normal Voice, LUZMA Respiratory: Yes: Chest Non-Tender, Lungs Clear, Normal Breath Sounds, No Respiratory Distress, No Accessory Muscle Use Neck: Yes: No masses,lesions,Nodules, Supple, Trachea in good position Breast: Yes: Within Normal Limits Cardiology: Yes: Regular Rhythm, Regular Rate, S1, S2 Abdominal: Yes: Normal Bowel Sounds, Non Tender, Soft Genitourinary: Yes: Within Normal Limits Back: Yes: Muscle Spasm Musculoskeletal: Yes: full range of Motion, Gait Steady, Joint Stiffness, Muscle Pain Extremities: Yes: Normal Range of Motion, Other (GENERALIZED RASH TO BODY) Neurological: Yes: pomologist II-XII NML intact, Alert, Motor Strength 5/5, Normal Mood /Affect, Normal Response Integumentary: Yes: Normal Color, Moist, Rash Lymphatic: Yes: Within Normal Limits - Diagnostic (1) Alcohol dependence with uncomplicated withdrawal Current Visit: Yes Status: Acute (2) Asthma Current Visit: Yes Status: Chronic Qualifiers: Asthma severity: mild Asthma persistence: unspecified Asthma complication type: uncomplicated Qualified Code(s): J45.909 - Unspecified asthma, uncomplicated (3) Cocaine dependence, uncomplicated Current Visit: Yes Status: Chronic (4) Essential (primary) hypertension Current Visit: Yes Status: Chronic (5) HIV (human immunodeficiency virus infection) Current Visit: Yes Status: Chronic Qualifiers: HIV symptom status: unspecified Comment: patient does not have HIV medication upon admission encourage the patient to contact with his INfectious Disease provider or pharmacist for possible HIV medication during the detox (6) Nicotine dependence Current Visit: Yes Status: Chronic Qualifiers: Nicotine product type: cigarettes Substance use status: uncomplicated Qualified Code(s): F17.210 - Nicotine dependence, cigarettes, uncomplicated Cleared for Admission [facility] - Detox or Rehab [facility] Level of Care: Medically Managed Detox Regimen/Protocol: Librium Breathalyzer - Breathalyzer Breathalyzer: 0 Urine Drug Screen - Test Device Lot number: [id number] Expiration date: 06/03/20 - Control Is test valid?: Yes - Results Drug screen NEGATIVE: No Urine drug screen results: THC-Marijuana, FILIPE-Cocaine, MET-Methamphetamine, MOP- Opiates, BZO-Benzodiazepines Inpatient Rehab Admission - Rehab Decision to Admit Inpatient rehab admission?: No
[2018-11-15] MEDS ORDERED: ALBUTEROL SO4 8 GM HFA INHALER IH PRN (14:57)
[2018-11-15] MEDS ORDERED: chlordiazePOXIDE HCL 10 MG CAPSULE PO PRN (15:01)
[2018-11-15] MEDS ORDERED: IBUPROFEN 400 MG TABLET (FP) PO PRN (15:02)
[2018-11-15] MEDS ORDERED: hydrOXYzine PAMOATE 25 MG CAPSULE (FP) PO PRN (15:02)
[2018-11-15] MEDS ORDERED: BISMUTH SUBSALICYLATE 524 MG/30 ML UD PO PRN (15:02)
[2018-11-15] MEDS ORDERED: MELATONIN 5 MG TABLETS PO PRN (15:02)
[2018-11-15] MEDS ORDERED: MAG HYDROX/AL HYDROX/SIMETH 30 ML UNIT-DOSE CUP PO PRN (15:02)
[2018-11-15] MEDS ORDERED: ACETAMINOPHEN 325 MG TABLET (FP) PO PRN ×2 (15:02)
[2018-11-15] MEDS ORDERED: MAGNESIUM CITRATE 300 ML BOTTLE PO PRN (15:02)
[2018-11-15] MEDS ORDERED: NICOTINE POLACRILEX 2 MG GUM BUC PRN (15:02)
[2018-11-15] MEDS ORDERED: MAGNESIUM HYDROX 2400MG/30ML ORAL SUSPENSION 30 ML CUP PO PRN (15:02)
[2018-11-15] MEDS: guaiFENesin 200 MG/10 ML 10 ML UNIT-DOSE CUPS PO PRN (19:57)
[2018-11-15] MEDS: MENTHOL/PHENOL 1 EACH UD MM PRN (19:58)
[2018-11-15] MEDS: FLUOCINONIDE 0.05% TOP OINT (60 GM TUBE) TP SCH (22:33)
[2018-11-15] MEDS: THIAMINE HCL 100 MG TABLET (FP) PO SCH (22:33)
[2018-11-15] MEDS: chlordiazePOXIDE HCL 25 MG CAPSULE PO SCH (22:33)
[2018-11-16] MEDS: MENTHOL/PHENOL 1 EACH UD MM PRN ×4 (02:48→22:08)
[2018-11-16] MEDS: chlordiazePOXIDE HCL 25 MG CAPSULE PO SCH ×3 (05:26→22:07)
[2018-11-16] MEDS: guaiFENesin 200 MG/10 ML 10 ML UNIT-DOSE CUPS PO PRN ×2 (05:27→19:31)
[2018-11-16] MEDS: FLUOCINONIDE 0.05% TOP OINT (60 GM TUBE) TP SCH ×3 (07:56→22:07)
[2018-11-16] MEDS: PRENATAL VITAMINS W/ FOLIC ACID TABLET (FP) PO SCH (10:40)
[2018-11-16] MEDS: LISINOPRIL 20 MG TABLET (FP) PO SCH (10:41)
[2018-11-16] MEDS: NICOTINE 14 MG/24 HOURS TOPICAL PATCH TD SCH (10:41)
--- NOTE | 2018-11-16 12:17 | PN ---
S CIWA - CIWA Score Nausea/Vomitin Muscle Tremors: 2 Anxiety: 2 Agitation: 2 Paroxysmal Sweats: 1-Minimal Palms Moist Orientation: 0-Oriented Tacttile Disturbances: 1-Very Mild Itch/Numbness Auditory Disturbances: 0-None Visual Disturbances: 0-None Headache: 2-Mild CIWA-Ar Total Score: 12 BHS Progress Note (SOAP) Subjective: alert,irritable,anxious,interrupted sleep,tremor Objective: 11/16/18 12:16 Vital Signs Temperature 97.9 F 11/16/18 09:27 Pulse Rate 100 H 11/16/18 09:27 Respiratory Rate 18 11/16/18 09:27 Blood Pressure 122/76 11/16/18 09:27 O2 Sat by Pulse Oximetry (%) 11/16/18 12:16 labs pending Assessment: 11/16/18 12:17 withdrawal symptom Plan: continue detox librium regimen
[2018-11-16 13:05] LABS: ALBUMIN 2.4 g/dl (3.4-5.0); BILIRUBIN,TOTAL 0.4 mg/dL (0.2-1); BLOOD UREA NITROGEN 11.7 mg/dL (7-18); CALCIUM 8.5 mg/dL (8.5-10.1); POTASSIUM 4.1 mmol/L (3.5-5.1); TOT PROT 6.8 g/dl (6.4-8.2)
[2018-11-16 13:48] LABS: BASO % 0.4 % (0-2.0); HEMATOCRIT 41.6 % (35.4-49); HEMOGLOBIN 14.2 GM/dL (11.7-16.9); LYMPH % 17.2 % (8-40); MCH 31.7 pg (25.7-33.7); MCHC 34.2 g/dl (32.0-35.9); MEAN CELL VOLUME 92.6 fl (80-96); MEAN PLT VOLUME 8.3 fl (7.5-11.1); MONO % 15.9 % (3.8-10.2); NEUT % 62.5 % (42.8-82.8); PLATELET COUNT 375 K/MM3 (134-434); RBC 4.49 M/mm3 (4.00-5.60); RDW 13.7 % (11.9-15.9); WHITE BLOOD COUNT 8.7 K/mm3 (4.0-10.0)
[2018-11-16 14:55] LABS: ANISOCYTOSIS 0; HELMET CELLS 0; HOWELL-JOLLY BODIES 0; MACROCYTOSIS 0; OVALOCYTE 0; PLATELET ESTIMATE NORMAL; ROULEAU 0; SICKELED CELLS 0; TARGET CELLS 0; TEAR DROP CELLS 0; TOXIC GRANULATION 0
[2018-11-16] MEDS: THIAMINE HCL 100 MG TABLET (FP) PO SCH (22:07)
[2018-11-17] MEDS: guaiFENesin 200 MG/10 ML 10 ML UNIT-DOSE CUPS PO PRN (04:38)
[2018-11-17] MEDS: chlordiazePOXIDE 5 MG CAPSULE PO SCH ×3 (04:38→22:11)
[2018-11-17] MEDS: MENTHOL/PHENOL 1 EACH UD MM PRN ×2 (04:38→22:11)
[2018-11-17] MEDS: FLUOCINONIDE 0.05% TOP OINT (60 GM TUBE) TP SCH ×3 (06:16→22:11)
[2018-11-17] MEDS: LISINOPRIL 20 MG TABLET (FP) PO SCH (10:19)
[2018-11-17] MEDS: NICOTINE 14 MG/24 HOURS TOPICAL PATCH TD SCH (10:19)
[2018-11-17] MEDS: PRENATAL VITAMINS W/ FOLIC ACID TABLET (FP) PO SCH (10:19)
--- NOTE | 2018-11-17 14:09 | PN ---
[facility] CIWA - CIWA Score Nausea/Vomitin-No Nausea/No Vomiting Muscle Tremors: 3 Anxiety: 4-Mod. Anxious/Guarded Agitation: 0-Normal Activity Paroxysmal Sweats: No Perspiration Orientation: 0-Oriented Tacttile Disturbances: 1-Very Mild Itch/Numbness Auditory Disturbances: 1-Very Mild Visual Disturbances: 2-Mild Sensitivity Headache: 0-None Present CIWA-Ar Total Score: 11 BHS Progress Note (SOAP) Subjective: Anxious, Tremors, Interrupted Sleep. Objective: PATIENT A & O X 3. IN NO ACUTE DISTRESS. 11/17/18 14:07 Vital Signs Temperature 97.9 F 11/17/18 13:38 Pulse Rate 106 H 11/17/18 13:38 Respiratory Rate 18 11/17/18 13:38 Blood Pressure 126/79 11/17/18 13:38 O2 Sat by Pulse Oximetry (%) Laboratory Tests 11/16/18 11/16/18 11/16/18 07:30 07:30 07:30 WBC 8.7 RBC 4.49 Hgb 14.2 Hct 41.6 MCV 92.6 MCH 31.7 MCHC 34.2 RDW 13.7 Plt Count 375 D MPV 8.3 Absolute Neuts (auto) 5.4 Neutrophils % 62.5 Neutrophils % (Manual) 62.1 Band Neutrophils % 0.0 Lymphocytes % 17.2 D Lymphocytes % (Manual) 18.9 Monocytes % 15.9 H Monocytes % (Manual) 12 H Eosinophils % 4.0 Eosinophils % (Manual) 5.3 H Basophils % 0.4 Basophils % (Manual) 0.0 Myelocytes % (Man) 0 Promyelocytes % (Man) 0 Blast Cells % (Manual) 0 Nucleated RBC % 0 Metamyelocytes 0 Hypochromia 0 Toxic Granulation 0 Dohle Bodies 0 Platelet Estimate Normal Polychromasia 0 Poikilocytosis 0 Basophilic Stippling 0 Anisocytosis 0 Microcytosis 0 Macrocytosis 0 Spherocytes 0 Sickle Cells 0 Target Cells 0 Tear Drop Cells 0 Ovalocytes 0 Stomatocytes 0 Helmet Cells 0 Yen-[place] Bodies 0 [place] Rings 0 Jannet Cells 0 Acanthocytes (Spur) 0 Rouleaux 0 Fragmented RBCs 0 Schistocytes 0 Sodium 140 Potassium 4.1 Chloride 105 Carbon Dioxide 30 Anion Gap 6 L BUN 11.7 Creatinine 1.0 Est GFR (CKD-EPI)AfAm 95.06 Est GFR (CKD-EPI)NonAf 82.02 Random Glucose 100 Calcium 8.5 Total Bilirubin 0.4 AST 15 ALT 16 Alkaline Phosphatase 94 Total Protein 6.8 Albumin 2.4 L RPR Titer Nonreactive LABS NOTED. RESULTS OF DETOX ADMISSION QFT /TB TEST PENDING. 11/17/18 14:09 Assessment: 11/17/18 14:08 WITHDRAWAL SYMPTOMS. Plan: CONTINUE DETOX.
[2018-11-17] MEDS: THIAMINE HCL 100 MG TABLET (FP) PO SCH (22:11)
[2018-11-18] MEDS ORDERED: chlordiazePOXIDE HCL 10 MG CAPSULE PO PRN
[2018-11-18] MEDS: chlordiazePOXIDE HCL 10 MG CAPSULE PO SCH ×3 (06:22→22:18)
[2018-11-18] MEDS: guaiFENesin 200 MG/10 ML 10 ML UNIT-DOSE CUPS PO PRN (06:22)
[2018-11-18] MEDS: MENTHOL/PHENOL 1 EACH UD MM PRN ×2 (06:23→10:51)
[2018-11-18] MEDS: FLUOCINONIDE 0.05% TOP OINT (60 GM TUBE) TP SCH ×3 (07:32→23:04)
[2018-11-18] MEDS: LISINOPRIL 20 MG TABLET (FP) PO SCH (10:49)
[2018-11-18] MEDS: PRENATAL VITAMINS W/ FOLIC ACID TABLET (FP) PO SCH (10:49)
[2018-11-18] MEDS: NICOTINE 14 MG/24 HOURS TOPICAL PATCH TD SCH (10:51)
--- NOTE | 2018-11-18 14:11 | PN ---
S CIWA - CIWA Score Nausea/Vomitin-No Nausea/No Vomiting Muscle Tremors: 2 Anxiety: 3 Agitation: 0-Normal Activity Paroxysmal Sweats: No Perspiration Orientation: 0-Oriented Tacttile Disturbances: 0-None Auditory Disturbances: 0-None Visual Disturbances: 1-Very Mild Sensitivity Headache: 0-None Present CIWA-Ar Total Score: 6 BHS Progress Note (SOAP) Subjective: Anxious, Tremors. Objective: PATIENT A & O X 3. IN NO ACUTE DISTRESS. 11/18/18 14:10 Vital Signs Temperature 98.5 F 11/18/18 13:48 Pulse Rate 107 H 11/18/18 13:48 Respiratory Rate 20 11/18/18 13:48 Blood Pressure 129/78 11/18/18 13:48 O2 Sat by Pulse Oximetry (%) Laboratory Tests 11/16/18 11/16/18 11/16/18 07:30 07:30 07:30 WBC 8.7 RBC 4.49 Hgb 14.2 Hct 41.6 MCV 92.6 MCH 31.7 MCHC 34.2 RDW 13.7 Plt Count 375 D MPV 8.3 Absolute Neuts (auto) 5.4 Neutrophils % 62.5 Neutrophils % (Manual) 62.1 Band Neutrophils % 0.0 Lymphocytes % 17.2 D Lymphocytes % (Manual) 18.9 Monocytes % 15.9 H Monocytes % (Manual) 12 H Eosinophils % 4.0 Eosinophils % (Manual) 5.3 H Basophils % 0.4 Basophils % (Manual) 0.0 Myelocytes % (Man) 0 Promyelocytes % (Man) 0 Blast Cells % (Manual) 0 Nucleated RBC % 0 Metamyelocytes 0 Hypochromia 0 Toxic Granulation 0 Dohle Bodies 0 Platelet Estimate Normal Polychromasia 0 Poikilocytosis 0 Basophilic Stippling 0 Anisocytosis 0 Microcytosis 0 Macrocytosis 0 Spherocytes 0 Sickle Cells 0 Target Cells 0 Tear Drop Cells 0 Ovalocytes 0 Stomatocytes 0 Helmet Cells 0 Yen-[place] Bodies 0 [place] Rings 0 [place] Cells 0 Acanthocytes (Spur) 0 Rouleaux 0 Fragmented RBCs 0 Schistocytes 0 Sodium 140 Potassium 4.1 Chloride 105 Carbon Dioxide 30 Anion Gap 6 L BUN 11.7 Creatinine 1.0 Est GFR (CKD-EPI)AfAm 95.06 Est GFR (CKD-EPI)NonAf 82.02 Random Glucose 100 Calcium 8.5 Total Bilirubin 0.4 AST 15 ALT 16 Alkaline Phosphatase 94 Total Protein 6.8 Albumin 2.4 L RPR Titer Nonreactive LABS NOTED. RESULTS OF DETOX ADMISSION QFT /TB TEST PENDING. Assessment: 11/18/18 14:10 WITHDRAWAL SYMPTOMS. Plan: CONTINUE DETOX. PATIENT SCHEDULED FOR D/C FROM DETOX UNIT TOMORROW.
[2018-11-18] MEDS: THIAMINE HCL 100 MG TABLET (FP) PO SCH (22:17)
[2018-11-19] MEDS ORDERED: chlordiazePOXIDE HCL 10 MG CAPSULE PO ONE (05:00)
[2018-11-19] MEDS: MENTHOL/PHENOL 1 EACH UD MM PRN (05:33)
[2018-11-19] MEDS: guaiFENesin 200 MG/10 ML 10 ML UNIT-DOSE CUPS PO PRN (05:33)
[2018-11-19] MEDS: FLUOCINONIDE 0.05% TOP OINT (60 GM TUBE) TP SCH (06:27)
[2018-11-19 06:39] VITALS: BP 120/72; PULSE 82; TEMP 98.4
--- NOTE | 2018-11-19 17:26 | DS ---
[facility] Detox Discharge Summary Admission Date: 11/15/18 Discharge Date: 11/19/18 - History Present History: Alcohol Dependence, Cocaine Dependence Additional Comments: PATIENT GOING HOME AND REFERRED TO [facility] ([place], [place]) FOR AFTERCARE. PATIENT DECLINED OFFER OF MEDICATION PRESCRIPTION FOR HOME MEDICATION AT TIME OF DISCHARGE FROM DETOX, NOTING THAT HE CURRENTLY HAS ADEQUATE SUPPLIES OF ALL PRESCRIBED HOME MEDICATIONS AT HOME. PATIENT WAS DISCHARGED FROM DETOX UNIT IN STABLE MEDICAL CONDITION. Pertinent Past History: Asthma, H.I.V., HTN. - Physical Exam Results Vital Signs: Vital Signs Temperature 98.4 F 11/19/18 06:39 Pulse Rate 82 11/19/18 06:39 Respiratory Rate 18 11/19/18 06:39 Blood Pressure 120/72 11/19/18 06:39 O2 Sat by Pulse Oximetry (%) Pertinent Admission Physical Exam Findings: WITHDRAWAL SYMPTOMS. Laboratory Tests 11/16/18 11/16/18 11/16/18 07:30 07:30 07:30 WBC 8.7 RBC 4.49 Hgb 14.2 Hct 41.6 MCV 92.6 MCH 31.7 MCHC 34.2 RDW 13.7 Plt Count 375 D MPV 8.3 Absolute Neuts (auto) 5.4 Neutrophils % 62.5 Neutrophils % (Manual) 62.1 Band Neutrophils % 0.0 Lymphocytes % 17.2 D Lymphocytes % (Manual) 18.9 Monocytes % 15.9 H Monocytes % (Manual) 12 H Eosinophils % 4.0 Eosinophils % (Manual) 5.3 H Basophils % 0.4 Basophils % (Manual) 0.0 Myelocytes % (Man) 0 Promyelocytes % (Man) 0 Blast Cells % (Manual) 0 Nucleated RBC % 0 Metamyelocytes 0 Hypochromia 0 Toxic Granulation 0 Dohle Bodies 0 Platelet Estimate Normal Polychromasia 0 Poikilocytosis 0 Basophilic Stippling 0 Anisocytosis 0 Microcytosis 0 Macrocytosis 0 Spherocytes 0 Sickle Cells 0 Target Cells 0 Tear Drop Cells 0 Ovalocytes 0 Stomatocytes 0 Helmet Cells 0 Yen-[place] Bodies 0 [place] Rings 0 Jannet Cells 0 Acanthocytes (Spur) 0 Rouleaux 0 Fragmented RBCs 0 Schistocytes 0 Sodium 140 Potassium 4.1 Chloride 105 Carbon Dioxide 30 Anion Gap 6 L BUN 11.7 Creatinine 1.0 Est GFR (CKD-EPI)AfAm 95.06 Est GFR (CKD-EPI)NonAf 82.02 Random Glucose 100 Calcium 8.5 Total Bilirubin 0.4 AST 15 ALT 16 Alkaline Phosphatase 94 Total Protein 6.8 Albumin 2.4 L RPR Titer Nonreactive TB (QFT) Incubation TB Test (QFT) Nil TB Test (QFT) Mitogen TB Test (QFT) Antigen TB Test (QFT) TB Positive Criteria 11/16/18 07:30 WBC RBC Hgb Hct MCV MCH MCHC RDW Plt Count MPV Absolute Neuts (auto) Neutrophils % Neutrophils % (Manual) Band Neutrophils % Lymphocytes % Lymphocytes % (Manual) Monocytes % Monocytes % (Manual) Eosinophils % Eosinophils % (Manual) Basophils % Basophils % (Manual) Myelocytes % (Man) Promyelocytes % (Man) Blast Cells % (Manual) Nucleated RBC % Metamyelocytes Hypochromia Toxic Granulation Dohle Bodies Platelet Estimate Polychromasia Poikilocytosis Basophilic Stippling Anisocytosis Microcytosis Macrocytosis Spherocytes Sickle Cells Target Cells Tear Drop Cells Ovalocytes Stomatocytes Helmet Cells Yen-[place] Bodies [place] Rings Jannet Cells Acanthocytes (Spur) Rouleaux Fragmented RBCs Schistocytes Sodium Potassium Chloride Carbon Dioxide Anion Gap BUN Creatinine Est GFR (CKD-EPI)AfAm Est GFR (CKD-EPI)NonAf Random Glucose Calcium Total Bilirubin AST ALT Alkaline Phosphatase Total Protein Albumin RPR Titer TB (QFT) Incubation TB Test (QFT) Nil 0.04 TB Test (QFT) Mitogen 0.42 TB Test (QFT) Antigen 0.03 TB Test (QFT) Indeterminate TB Positive Criteria LABS NOTED. - Treatment Hospital Course: Detox Protocol Followed, Detoxed Safely, Responded well, Discharged Condition Good Patient has Accepted a Rehab Referral to: PATIENT REFERRED TO [facility] ([place], [place]). - Medication Discharge Medications: Ambulatory Orders Albuterol Sulfate Inhaler - [Ventolin HFA Inhaler -] 2 inh IH PRN PRN #1 inhaler 09/17/17 Quetiapine Fumarate "Xr" [Seroquel XR] 100 mg PO HS 03/26/18 Lisinopril 20 mg PO DAILY 08/25/18 - Diagnosis (1) Alcohol dependence with uncomplicated withdrawal Status: Acute (2) Asthma Status: Chronic Qualifiers: Asthma severity: mild Asthma persistence: unspecified Asthma complication type: uncomplicated Qualified Code(s): J45.909 - Unspecified asthma, uncomplicated (3) Cocaine dependence, uncomplicated Status: Chronic (4) Essential (primary) hypertension Status: Chronic (5) HIV (human immunodeficiency virus infection) Status: Chronic Qualifiers: HIV symptom status: unspecified (6) Nicotine dependence Status: Chronic Qualifiers: Nicotine product type: cigarettes Substance use status: uncomplicated Qualified Code(s): F17.210 - Nicotine dependence, cigarettes, uncomplicated - AMA Did Patient Leave Against Medical Advice: No [facility] CIWA - CIWA Score Nausea/Vomitin-No Nausea/No Vomiting Muscle Tremors: None Anxiety: 0-No Anxiety, at Ease Agitation: 1-Slight > Activity Paroxysmal Sweats: No Perspiration Orientation: 0-Oriented Tacttile Disturbances: 0-None Auditory Disturbances: 0-None Visual Disturbances: 0-None Headache: 0-None Present CIWA-Ar Total Score: 1
== END 2018-11-19 08:45 | disposition home or self-care (01) | DRG 774 ==
LOC: YASAS 10:27 → Y3N 15:42
PROVIDERS: ADMIT Surgery; ATTEND Surgery
PROC: HZ2ZZZZ Detoxification Services for Substance Abuse Treatment (ICD-10-PCS; principal; 2018-11-15)
DX: F10.230 Alcohol dependence with withdrawal, uncomplicated (principal); F14.20 Cocaine dependence, uncomplicated; F17.210 Nicotine dependence, cigarettes, uncomplicated; I10 Essential (primary) hypertension; J45.909 Unspecified asthma, uncomplicated; Z21 Asymptomatic human immunodeficiency virus [HIV] infection status; Z91.14 Patient's other noncompliance with medication regimen
CPT/HCPCS: 36415; 80053; 85025; 86480; 86593

== ENCOUNTER 2018-12-13 17:15 | Inpatient (IN) | payer OTHER ==
[2018-12-13 20:13] VITALS: BMI 26.6
--- NOTE | 2018-12-14 01:45 | HP ---
CIWA Score - Admission Criteria [facility] Guidelines: Admission for Medically Managed Detox: Requires at least one of the followin. CIWA greater than 12 2. Seizures within the past 24 hours 3. Delirium tremens within the past 24 hours 4. Hallucinations within the past 24 hours 5. Acute intervention needed for co occurring medical disorder 6. Acute intervention needed for co occurring psychiatric disorder 7. Severe withdrawal that cannot be handled at a lower level of care (continued vomiting, continued diarrhea, abnormal vital signs) requiring intravenous medication and/or fluids 8. Admission ROS S - HPI Chief Complaint: Seeking admission to Rehab Allergies/Adverse Reactions: Allergies Allergy/AdvReac Type Severity Reaction Status Date / Time No Known Drug Allergies Allergy Verified 11/15/18 14:17 jordanian nuts Allergy Intermediate Swelling Uncoded 11/15/18 14:17 History of Present Illness: 58 years old male with a long history of heroin dependence is seeing admission to Rehab. Patient reports history of HIV+, hypertension, asthma . He denies suicidal ideation at this time Exam Limitations: No Limitations - Ebola screening Have you traveled outside of the country in the last 21 days: No (N) Have you had contact with anyone from an Ebola affected area: No Do you have a fever: No - Review of Systems Constitutional: No Symptoms Reported Respiratory: reports: No Symptoms reported Cardiac: reports: No Symptoms Reported GI: reports: No Symptoms Reported : reports: No Symptoms Reported, Testicular Swelling Musculoskeletal: reports: No Symptoms Reported, Other Integumentary: reports: No Symptoms Reported Neuro: reports: No Symptoms reported Endocrine: reports: No Symptoms Reported Hematology: reports: No Symptoms Reported Psychiatric: reports: No Sypmtoms Reported, Mood/Affect Appropiate, Orientated x3 Other Systems: Reviewed and Negative Patient History - Patient Medical History Hx Anemia: No Hx Asthma: Yes (Albuterol) Hx Chronic Obstructive Pulmonary Disease (COPD): No Hx Cancer: No Hx Cardiac Disorders: No Hx Congestive Heart Failure: No Hx Hypertension: Yes (Lisinopril) Hx Hypercholesterolemia: No Hx Pacemaker: No HX Cerebrovascular Accident: No Hx Seizures: No Hx Dementia: No Hx Diabetes: No Hx Gastrointestinal Disorders: No Hx Liver Disease: No Hx Genitourinary Disorders: No Hx Sexually Transmitted Disorders: No Hx Renal Disease (ESRD): No Hx Thyroid Disease: No Hx Human Immunodeficiency Virus (HIV): Yes (ODEFSEY BUT NONCOMPLIANT WITH MEDICATION) Hx Hepatitis C: No Hx Depression: No Hx Suicide Attempt: No Hx Bipolar Disorder: No Hx Schizophrenia: No - Patient Surgical History Past Surgical History: Yes Hx Neurologic Surgery: No Hx Cataract Extraction: No Hx Cardiac Surgery: No Hx Lung Surgery: No Hx Breast Surgery: No Hx Breast Biopsy: No Hx Abdominal Surgery: No Hx Appendectomy: No Hx Cholecystectomy: No Hx Genitourinary Surgery: No Hx Orthopedic Surgery: Yes (Right ankle surgery 05/2017) Anesthesia Reaction: No - PPD History Previous Implant?: Yes Implanted On Prior [facility] Admission?: Yes Date: 09/16/17 Results: omm PPD to be Administered?: Yes - Reproductive History Patient is a Female of Child Bearing Age (11 -55 yrs old): No (male) - Smoking Cessation Smoking history: Current every day smoker Have you smoked in the past 12 months: Yes Aproximately how many cigarettes per day: 8 Cigars Per Day: 0 Hx Chewing Tobacco Use: No Initiated information on smoking cessation: Yes 'Breaking Loose' booklet given: 12/14/18 - Substance & Tx. History Hx Alcohol Use: Yes Hx Substance Use: No Substance Use Type: Alcohol, Cocaine Hx Substance Use Treatment: Yes ([facility]) - Substances abused Alcohol Substance route: Oral Frequency: Daily Amount used: 4 beers ( 22 oz) Age of first use: 14 Date of last use: 12/13/18 Cocaine Other (specify): sniff Substance route: Inhalation Frequency: 3-6 times per week Amount used: unknown Age of first use: 24 Date of last use: 12/13/18 Family Disease History - Family Disease History Family History: Denies Family Disease History: Other: Grandparent (HTN), Father (), Mother ( ) Admission Physical Exam S - Vital Signs Vital Signs: Vital Signs - 24 hr 12/13/18 12/13/18 20:06 20:18 Temperature 97.7 F 97.7 F Pulse Rate 92 H 92 H Respiratory 19 19 Rate Blood Pressure 139/87 139/87 - Physical General Appearance: Yes: No Apparent Distress HEENTM: Yes: Within Normal Limits Respiratory: Yes: Lungs Clear, Normal Breath Sounds, No Respiratory Distress Neck: Yes: Supple Breast: Yes: Breast Exam Deferred Cardiology: Yes: Regular Rhythm, Regular Rate Abdominal: Yes: Normal Bowel Sounds, Soft Genitourinary: Yes: Within Normal Limits Back: Yes: Normal Inspection Musculoskeletal: Yes: Within Normal Limits Extremities: Yes: Within Normal Limits Neurological: Yes: Within Normal Limits, Alert Integumentary: Yes: Warm Lymphatic: Yes: Within Normal Limits - Diagnostic (1) Asthma Current Visit: Yes Status: Chronic Qualifiers: Asthma severity: mild Asthma persistence: intermittent Asthma complication type: uncomplicated Qualified Code(s): J45.20 - Mild intermittent asthma, uncomplicated (2) Essential (primary) hypertension Current Visit: Yes Status: Chronic (3) HIV (human immunodeficiency virus infection) Current Visit: Yes Status: Chronic Qualifiers: HIV symptom status: unspecified Qualified Code(s): B20 - Human immunodeficiency virus [HIV] disease Comment: patient does not have HIV medication upon admission encourage the patient to contact with his INfectious Disease provider or pharmacist for possible HIV medication during the detox Cleared for Admission S - Detox or Rehab [facility] Level of Care: Observation Bed Claeared for Rehab Admission: Yes Breathalyzer - Breathalyzer Breathalyzer: 0 Urine Drug Screen - Test Device Lot number: [id number] Expiration date: 09/03/20 - Control Is test valid?: Yes - Results Drug screen NEGATIVE: No Urine drug screen results: FILIPE-Cocaine, BZO-Benzodiazepines Inpatient Rehab Admission - Rehab Decision to Admit Inpatient rehab admission?: No
[2018-12-14] MEDS ORDERED: MAG HYDROX/AL HYDROX/SIMETH 30 ML UNIT-DOSE CUP PO PRN (01:56)
[2018-12-14] MEDS ORDERED: IBUPROFEN 400 MG TABLET (FP) PO PRN (01:56)
[2018-12-14] MEDS ORDERED: ACETAMINOPHEN 325 MG TABLET (FP) PO PRN (01:56)
[2018-12-14] MEDS ORDERED: MENTHOL/PHENOL 1 EACH UD MM PRN (01:56)
[2018-12-14] MEDS ORDERED: LOPERAMIDE HCL 2 MG CAPSULE PO PRN (01:56)
[2018-12-14] MEDS ORDERED: P-EPHED 60MG/TRIPROLIDI 2.5MG TABLET PO PRN (01:56)
[2018-12-14] MEDS ORDERED: MAGNESIUM CITRATE 300 ML BOTTLE PO PRN (01:56)
[2018-12-14] MEDS ORDERED: NICOTINE POLACRILEX 2 MG GUM BUC PRN (01:56)
[2018-12-14] MEDS ORDERED: guaiFENesin 200 MG/10 ML 10 ML UNIT-DOSE CUPS PO PRN (01:56)
[2018-12-14] MEDS: NICOTINE 14 MG/24 HOURS TOPICAL PATCH TD SCH (11:01)
[2018-12-14] MEDS: PRENATAL VITAMINS W/ FOLIC ACID TABLET (FP) PO SCH (11:01)
[2018-12-14 15:13] LABS: HEMATOCRIT 42.1 % (35.4-49); HEMOGLOBIN 13.8 GM/dL (11.7-16.9); MCH 30.9 pg (25.7-33.7); MCHC 32.8 g/dl (32.0-35.9); MEAN CELL VOLUME 94.5 fl (80-96); MEAN PLT VOLUME 8.9 fl (7.5-11.1); PLATELET COUNT 228 K/MM3 (134-434); RBC 4.46 M/mm3 (4.00-5.60); RDW 15.4 % (11.9-15.9); WHITE BLOOD COUNT 6.9 K/mm3 (4.0-10.0)
[2018-12-14 15:35] LABS: ALBUMIN 2.4 g/dl (3.4-5.0); BILIRUBIN,TOTAL 0.4 mg/dL (0.2-1); BLOOD UREA NITROGEN 18.2 mg/dL (7-18); CALCIUM 8.4 mg/dL (8.5-10.1); POTASSIUM 3.8 mmol/L (3.5-5.1)
[2018-12-14] MEDS: MELATONIN 5 MG TABLETS PO PRN (21:10)
[2018-12-14] MEDS: THIAMINE HCL 100 MG TABLET (FP) PO SCH (21:10)
[2018-12-15] MEDS: PRENATAL VITAMINS W/ FOLIC ACID TABLET (FP) PO SCH (10:25)
[2018-12-15] MEDS: NICOTINE 14 MG/24 HOURS TOPICAL PATCH TD SCH (10:25)
--- NOTE | 2018-12-15 11:48 | CONSULT ---
[facility] Psychiatric Consult - Data Date of interview: 12/15/18 Admission source: Self-referred Identifying data: Mr Ott is a 58 years old single Black, unemployed, receiving SSI, homeless seeking detox treatment for alcohol and cocaine Substance Abuse History: Reports history of alcohol and cocaine use. Refer to addiction counselor's summary for further information Medical History: ignificant for bronchial asthma, hypertension, HIV since 2002, eczema and orthosurgery right ankle in May 2017. Smokes 8 cigarettesdaily Psychiatric History: Patient is known by advertising copywriter from a recent encounter on during an admission to this facility. Reports being diagnosed with Schizoaffective Disorder in September 2011 and started on psychotropic medication. Reports he gets psychiatric outpatient treatment at [facility] but he has not been there in a year. Claims that he is prescribed Seroquel 100 mg/hs. When seen by advertising copywriter on 09/08/18, he was prescribed Seroquel 100 mg/hs. Denies previous psychiatric hospitalization or suicidal attempt. At present, denies experiencing psychotic, manic or depressive symptoms , S/H ideations. However, reports sleeing poorly and requests to resume Seroquel Physical/Sexual Abuse/Trauma History: Denies history of emotional, physical or sexual abuse as well as DV relationship. No service Additional Comment: Reports history of multiple previous arrests including 4 felony convictions Mental Status Exam - Mental Status Exam Alert and Oriented to: Time, Place, Person Cognitive Function: Fair Patient Appearance: Well Groomed Mood: Hopeful, Euthymic Patient Behavior: Cooperative Voice Loudness: Normal Thought Process: Intact Thought Disorder: Not Present Hallucinations: Denies Suicidal Ideation: Denies Homicidal Ideation: Denies Insight/Judgement: Fair Sleep: Poorly Appetite: Good Muscle strength/Tone: Normal Gait/Station: Normal Psychiatric Findings - Problem List ([place] 1, 2,3) (1) Schizoaffective disorder Current Visit: No Status: Chronic Qualifiers: Schizoaffective disorder type: unspecified Qualified Code(s): F25.9 - Schizoaffective disorder, unspecified Comment: Self-report. (2) Substance-induced sleep disorder Current Visit: No Status: Acute (3) Alcohol dependence Current Visit: Yes Status: Acute (4) Cocaine dependence Current Visit: Yes Status: Acute (5) Nicotine dependence Current Visit: No Status: Chronic Qualifiers: Nicotine product type: cigarettes Substance use status: uncomplicated Qualified Code(s): F17.210 - Nicotine dependence, cigarettes, uncomplicated (6) Asthma Current Visit: Yes Status: Chronic Qualifiers: Asthma severity: mild Asthma persistence: intermittent Asthma complication type: uncomplicated Qualified Code(s): J45.20 - Mild intermittent asthma, uncomplicated (7) Essential (primary) hypertension Current Visit: Yes Status: Chronic (8) HIV (human immunodeficiency virus infection) Current Visit: Yes Status: Chronic Qualifiers: HIV symptom status: unspecified Qualified Code(s): B20 - Human immunodeficiency virus [HIV] disease Comment: patient does not have HIV medication upon admission encourage the patient to contact with his INfectious Disease provider or pharmacist for possible HIV medication during the detox (9) Eczema Current Visit: No Status: Chronic Qualifiers: Eczema type: unspecified Qualified Code(s): L30.9 - Dermatitis, unspecified - Initial Treatment Plan Initial Treatment Plan: 1) Resume Seroquel 100 mg po HS. 2) Continue inpatient rehabilitation
--- NOTE | 2018-12-15 11:58 | PN ---
[facility] Progress Note Note: Pt with a hx of chronic skin condition c/o itchy skin rash-- Hx Eczema. Floucinonide 0.05% use in the past. Vital Signs - 24 hr 12/15/18 12/15/18 12/15/18 00:30 03:30 06:34 Temperature 98.1 F Pulse Rate 86 Respiratory 18 18 18 Rate Blood Pressure 165/105 H Laboratory Tests 12/14/18 12/14/18 12/14/18 08:52 08:52 08:52 WBC 6.9 RBC 4.46 Hgb 13.8 Hct 42.1 MCV 94.5 MCH 30.9 MCHC 32.8 RDW 15.4 D Plt Count 228 D MPV 8.9 Sodium 143 Potassium 3.8 Chloride 106 Carbon Dioxide 29 Anion Gap 8 BUN 18.2 H Creatinine 1.0 Est GFR (CKD-EPI)AfAm 95.06 Est GFR (CKD-EPI)NonAf 82.02 Random Glucose 118 H Calcium 8.4 L Total Bilirubin 0.4 AST 14 L ALT 20 Alkaline Phosphatase 113 Total Protein 6.0 L Albumin 2.4 L RPR Titer Nonreactive Skin:Generalized body rash with areas of dark lichenified skin areas on extremities. A/P Chronic eczema Reorder Floucinonide 0.05% TP cream apply as directed. Aveeno soap
[2018-12-15] MEDS: FLUOCINONIDE 0.05% TOP OINT (60 GM TUBE) TP SCH ×2 (13:20→21:08)
--- NOTE | 2018-12-15 13:22 | CONSULT ---
[facility] Psychiatric Consult - Data Date of interview: 12/15/18 Admission source: Self-referred Psychiatric Findings - Problem List ([place] 1, 2,3) (1) Schizoaffective disorder Current Visit: No Status: Chronic Qualifiers: Schizoaffective disorder type: unspecified Qualified Code(s): F25.9 - Schizoaffective disorder, unspecified Comment: Self-report.
[2018-12-15] MEDS: MAGNESIUM HYDROX 2400MG/30ML ORAL SUSPENSION 30 ML CUP PO PRN (14:09)
[2018-12-15] MEDS: QUEtiapine FUMARATE 100 MG TABLET (FP) PO SCH (21:08)
[2018-12-15] MEDS: THIAMINE HCL 100 MG TABLET (FP) PO SCH (21:08)
[2018-12-16] MEDS: FLUOCINONIDE 0.05% TOP OINT (60 GM TUBE) TP SCH ×2 (10:54→21:09)
[2018-12-16] MEDS: PRENATAL VITAMINS W/ FOLIC ACID TABLET (FP) PO SCH ×2 (10:54→11:00)
[2018-12-16] MEDS: NICOTINE 14 MG/24 HOURS TOPICAL PATCH TD SCH (10:54)
[2018-12-16] MEDS: MAGNESIUM HYDROX 2400MG/30ML ORAL SUSPENSION 30 ML CUP PO PRN (13:42)
[2018-12-16 17:52] LABS: PH,URINE 7.5 (5.0-8.0); URINE APPEARANCE CLEAR; URINE BILIRUBIN NEGATIVE (NEGATIVE); URINE COLOR YELLOW; URINE GLUCOSE (UA) NEGATIVE (NEGATIVE); URINE KETONE NEGATIVE (NEGATIVE); URINE LEUK ESTERASE NEGATIVE (NEGATIVE); URINE NITRITE NEGATIVE (NEGATIVE); URINE PROTEIN TRACE (NEGATIVE); URINE UROBILINOGEN 0.2 mg/dL (0.2-1.0)
[2018-12-16] MEDS: THIAMINE HCL 100 MG TABLET (FP) PO SCH (21:08)
[2018-12-16] MEDS: QUEtiapine FUMARATE 100 MG TABLET (FP) PO SCH (21:08)
[2018-12-17] MEDS: FLUOCINONIDE 0.05% TOP OINT (60 GM TUBE) TP SCH ×2 (10:05→21:10)
[2018-12-17] MEDS: PRENATAL VITAMINS W/ FOLIC ACID TABLET (FP) PO SCH (10:05)
[2018-12-17] MEDS: NICOTINE 14 MG/24 HOURS TOPICAL PATCH TD SCH (10:06)
[2018-12-17] MEDS: THIAMINE HCL 100 MG TABLET (FP) PO SCH (21:09)
[2018-12-17] MEDS: QUEtiapine FUMARATE 100 MG TABLET (FP) PO SCH (21:09)
[2018-12-18] MEDS: NICOTINE 14 MG/24 HOURS TOPICAL PATCH TD SCH (09:43)
[2018-12-18] MEDS: FLUOCINONIDE 0.05% TOP OINT (60 GM TUBE) TP SCH ×2 (09:43→21:19)
[2018-12-18] MEDS: PRENATAL VITAMINS W/ FOLIC ACID TABLET (FP) PO SCH (09:43)
[2018-12-18] MEDS: [UNRECOGNIZED DRUG - OTHER] PO SCH (12:13)
[2018-12-18] MEDS: THIAMINE HCL 100 MG TABLET (FP) PO SCH (21:20)
[2018-12-18] MEDS: MELATONIN 5 MG TABLETS PO PRN (21:20)
[2018-12-18] MEDS: QUEtiapine FUMARATE 100 MG TABLET (FP) PO SCH (21:20)
[2018-12-19] MEDS: PRENATAL VITAMINS W/ FOLIC ACID TABLET (FP) PO SCH (09:51)
[2018-12-19] MEDS: NICOTINE 14 MG/24 HOURS TOPICAL PATCH TD SCH (09:52)
[2018-12-19] MEDS: FLUOCINONIDE 0.05% TOP OINT (60 GM TUBE) TP SCH ×2 (09:52→21:08)
[2018-12-19] MEDS: [UNRECOGNIZED DRUG - OTHER] PO SCH (09:52)
[2018-12-19] MEDS: THIAMINE HCL 100 MG TABLET (FP) PO SCH (21:08)
[2018-12-19] MEDS: MELATONIN 5 MG TABLETS PO PRN (21:08)
[2018-12-19] MEDS: QUEtiapine FUMARATE 100 MG TABLET (FP) PO SCH (21:08)
[2018-12-20] MEDS: PRENATAL VITAMINS W/ FOLIC ACID TABLET (FP) PO SCH (10:04)
[2018-12-20] MEDS: [UNRECOGNIZED DRUG - OTHER] PO SCH (10:04)
[2018-12-20] MEDS: FLUOCINONIDE 0.05% TOP OINT (60 GM TUBE) TP SCH ×2 (10:05→21:03)
[2018-12-20] MEDS: NICOTINE 14 MG/24 HOURS TOPICAL PATCH TD SCH (10:05)
[2018-12-20] MEDS: QUEtiapine FUMARATE 100 MG TABLET (FP) PO SCH (21:03)
[2018-12-20] MEDS: THIAMINE HCL 100 MG TABLET (FP) PO SCH (21:03)
[2018-12-21] MEDS: PRENATAL VITAMINS W/ FOLIC ACID TABLET (FP) PO SCH (10:06)
[2018-12-21] MEDS: NICOTINE 14 MG/24 HOURS TOPICAL PATCH TD SCH (10:06)
[2018-12-21] MEDS: FLUOCINONIDE 0.05% TOP OINT (60 GM TUBE) TP SCH ×2 (10:06→21:16)
[2018-12-21] MEDS: [UNRECOGNIZED DRUG - OTHER] PO SCH (10:06)
[2018-12-21] MEDS: QUEtiapine FUMARATE 100 MG TABLET (FP) PO SCH (21:16)
[2018-12-21] MEDS: THIAMINE HCL 100 MG TABLET (FP) PO SCH (21:16)
[2018-12-21] MEDS: MELATONIN 5 MG TABLETS PO PRN (21:16)
[2018-12-22] MEDS: PRENATAL VITAMINS W/ FOLIC ACID TABLET (FP) PO SCH (10:13)
[2018-12-22] MEDS: [UNRECOGNIZED DRUG - OTHER] PO SCH (10:13)
[2018-12-22] MEDS: NICOTINE 14 MG/24 HOURS TOPICAL PATCH TD SCH (10:14)
[2018-12-22] MEDS: FLUOCINONIDE 0.05% TOP OINT (60 GM TUBE) TP SCH ×2 (10:14→21:12)
[2018-12-22] MEDS: QUEtiapine FUMARATE 100 MG TABLET (FP) PO SCH (21:12)
[2018-12-22] MEDS: THIAMINE HCL 100 MG TABLET (FP) PO SCH (21:12)
[2018-12-22] MEDS: MELATONIN 5 MG TABLETS PO PRN (21:12)
[2018-12-23] MEDS: PRENATAL VITAMINS W/ FOLIC ACID TABLET (FP) PO SCH (10:08)
[2018-12-23] MEDS: [UNRECOGNIZED DRUG - OTHER] PO SCH (10:08)
[2018-12-23] MEDS: FLUOCINONIDE 0.05% TOP OINT (60 GM TUBE) TP SCH ×2 (10:09→21:10)
[2018-12-23] MEDS: NICOTINE 14 MG/24 HOURS TOPICAL PATCH TD SCH (10:09)
[2018-12-23] MEDS: THIAMINE HCL 100 MG TABLET (FP) PO SCH (21:10)
[2018-12-23] MEDS: MELATONIN 5 MG TABLETS PO PRN (21:10)
[2018-12-23] MEDS: QUEtiapine FUMARATE 100 MG TABLET (FP) PO SCH (21:10)
[2018-12-24] MEDS: NICOTINE 14 MG/24 HOURS TOPICAL PATCH TD SCH (09:50)
[2018-12-24] MEDS: PRENATAL VITAMINS W/ FOLIC ACID TABLET (FP) PO SCH (09:50)
[2018-12-24] MEDS: [UNRECOGNIZED DRUG - OTHER] PO SCH (09:51)
[2018-12-24] MEDS: FLUOCINONIDE 0.05% TOP OINT (60 GM TUBE) TP SCH ×2 (11:08→21:10)
[2018-12-24] MEDS: QUEtiapine FUMARATE 100 MG TABLET (FP) PO SCH (21:10)
[2018-12-24] MEDS: MELATONIN 5 MG TABLETS PO PRN (21:10)
[2018-12-24] MEDS: THIAMINE HCL 100 MG TABLET (FP) PO SCH (21:10)
[2018-12-25] MEDS: NICOTINE 14 MG/24 HOURS TOPICAL PATCH TD SCH (09:29)
[2018-12-25] MEDS: [UNRECOGNIZED DRUG - OTHER] PO SCH (09:29)
[2018-12-25] MEDS: PRENATAL VITAMINS W/ FOLIC ACID TABLET (FP) PO SCH (09:29)
[2018-12-25] MEDS: FLUOCINONIDE 0.05% TOP OINT (60 GM TUBE) TP SCH ×2 (09:30→21:07)
[2018-12-25] MEDS: THIAMINE HCL 100 MG TABLET (FP) PO SCH (21:06)
[2018-12-25] MEDS: QUEtiapine FUMARATE 100 MG TABLET (FP) PO SCH (21:06)
--- NOTE | 2018-12-25 21:46 | DS ---
[facility] Rehab Discharge Summary - [facility] Rehab Discharge Summary Admission Date: 12/13/18 Discharge Date: 12/26/18 - History Present History: Alcohol dependence Additional Comments: CLIENT DECIDED TO ABORT TXMENT AND SIGNED OUT AMA. HE DECLINES ANY DISCUSSION REGARDING CONTINUATION OF TXMENT. HIS B/P IS ELEVATED BUT ASYMPTOMATIC. CLIENT DENIES HEADACHES, C.P., SOB, DIZZINESS, VISUAL DISTURBANCE. STATES HE IS SUPPOSE TO TAKE LISINOPRI BUT IS NON COMPLAINT. ONLY HAS ELEVATED BP WHEN HE IS HERE. D/W CLIENT TO F/U W/ PMD . HE WAS ALSO INFORMED TO SEEK EMERGENCY SERVICES FOR ANY SX'S DISCUSSED ABOVE WELL SEIZURES. CLIENT VERBALIZED UNDERSTANDING AND ACCEPTS RISKS. CLIENT ALSO STATES HE WILL BE GOING TO A FRIENDS HOUSE IN THE [place] WHEN ASKED ABOUT HIS HOMELESSNESS. Pertinent Past History: HIV HTN ASTHMA NICOTINE DEP - Discharge Physical Exam Vital Signs: Vital Signs Temperature 98.3 F 12/25/18 06:57 Pulse Rate 114 H 12/25/18 06:57 Respiratory Rate 18 12/25/18 06:57 Blood Pressure 141/97 12/25/18 06:57 O2 Sat by Pulse Oximetry (%) Pertinent Admission Physical Exam Findings: Laboratory Tests 12/14/18 12/14/18 12/14/18 08:52 08:52 08:52 WBC 6.9 RBC 4.46 Hgb 13.8 Hct 42.1 MCV 94.5 MCH 30.9 MCHC 32.8 RDW 15.4 D Plt Count 228 D MPV 8.9 Sodium 143 Potassium 3.8 Chloride 106 Carbon Dioxide 29 Anion Gap 8 BUN 18.2 H Creatinine 1.0 Est GFR (CKD-EPI)AfAm 95.06 Est GFR (CKD-EPI)NonAf 82.02 Random Glucose 118 H Calcium 8.4 L Total Bilirubin 0.4 AST 14 L ALT 20 Alkaline Phosphatase 113 Total Protein 6.0 L Albumin 2.4 L Urine Color Urine Appearance Urine pH Ur Specific [place] Urine Protein Urine Glucose (UA) Urine Ketones Urine Blood Urine Nitrite Urine Bilirubin Urine Urobilinogen Ur Leukocyte Esterase RPR Titer Nonreactive 12/16/18 14:00 WBC RBC Hgb Hct MCV MCH MCHC RDW Plt Count MPV Sodium Potassium Chloride Carbon Dioxide Anion Gap BUN Creatinine Est GFR (CKD-EPI)AfAm Est GFR (CKD-EPI)NonAf Random Glucose Calcium Total Bilirubin AST ALT Alkaline Phosphatase Total Protein Albumin Urine Color Yellow Urine Appearance Clear Urine pH 7.5 Ur Specific [place] 1.015 Urine Protein Trace Urine Glucose (UA) Negative Urine Ketones Negative Urine Blood Negative Urine Nitrite Negative Urine Bilirubin Negative Urine Urobilinogen 0.2 Ur Leukocyte Esterase Negative RPR Titer - Treatment Discharge Condition: Discharge condition good Hospital Course: ADMITTED ON 12/14/2018 FOR ALCOHOL AND COCAINE DEPENDENCE. CLIENT IS NON COMPLAINT WITH MEDICATION MGMT OUTPATIENT. UNEVENTFUL ADMISSION COURSE. DECIDED TO ABORT ADMISSION TODAY FOR REASONS HE DID NOT CARE TO SHARE. - Medication Discharge Medications: Ambulatory Orders Quetiapine Fumarate "Xr" [Seroquel XR] 100 mg PO HS 03/26/18 - Medication-Assisted Treatment (MAT) Medication-Assisted Treatment (MAT): No - Discharge Instructions Diet, activity, other medical instructions: Diet: Activity: Other medical instructions: - Diagnosis (1) Alcohol dependence Status: Acute (2) Asthma Status: Chronic Qualifiers: Asthma severity: mild Asthma persistence: intermittent Asthma complication type: uncomplicated Qualified Code(s): J45.20 - Mild intermittent asthma, uncomplicated (3) Cocaine dependence, uncomplicated Status: Chronic (4) Essential (primary) hypertension Status: Chronic (5) HIV (human immunodeficiency virus infection) Status: Chronic Qualifiers: HIV symptom status: unspecified Qualified Code(s): B20 - Human immunodeficiency virus [HIV] disease (6) Nicotine dependence Status: Chronic Qualifiers: Nicotine product type: cigarettes Substance use status: uncomplicated Qualified Code(s): F17.210 - Nicotine dependence, cigarettes, uncomplicated (7) Substance induced mood disorder Status: Chronic (8) Substance-induced sleep disorder Status: Acute (9) Eczema Status: Chronic Qualifiers: Eczema type: unspecified Qualified Code(s): L30.9 - Dermatitis, unspecified (10) Schizoaffective disorder Status: Chronic Qualifiers: Schizoaffective disorder type: unspecified Qualified Code(s): F25.9 - Schizoaffective disorder, unspecified - Follow-up Referral Minutes to complete discharge: 30 - AMA Did Patient Leave Against Medical Advice: Yes Additional Comments: CLIENT IS A/O X3 NAD. DENIES SI/HI/AVH.
[2018-12-25 23:56] VITALS: BP 154/98; PULSE 118; TEMP 98
== END 2018-12-25 21:45 | disposition left against medical advice (07) | DRG 770 ==
LOC: YASAS 17:15 → Y5N 23:47
PROVIDERS: ADMIT Neuromusculoskeletal Medicine & OMM; ATTEND Neuromusculoskeletal Medicine & OMM
PROC: HZ42ZZZ Group Counseling for Substance Abuse Treatment, Cognitive-Behavioral (ICD-10-PCS; principal; 2018-12-13)
DX: F10.20 Alcohol dependence, uncomplicated (principal); F14.20 Cocaine dependence, uncomplicated; F17.210 Nicotine dependence, cigarettes, uncomplicated; F19.282 Other psychoactive substance dependence with psychoactive substance-induced sleep disorder; F19.24 Other psychoactive substance dependence with psychoactive substance-induced mood disorder; F25.9 Schizoaffective disorder, unspecified; Z21 Asymptomatic human immunodeficiency virus [HIV] infection status; I10 Essential (primary) hypertension; J45.20 Mild intermittent asthma, uncomplicated; L30.9 Dermatitis, unspecified
CPT/HCPCS: 36415; 80053; 81003; 85027; 86593

== ENCOUNTER 2023-11-23 13:51 | Inpatient (IN) | payer OTHER ==
[2023-11-23 14:11] VITALS: BMI 24.3
[2023-11-23] MEDS ORDERED: POLYETHYLENE GLYCOL (HEALTHYLAX) 3350 17 GM PACKET PO PRN (15:24)
[2023-11-23] MEDS ORDERED: NALOXONE HCL 0.4 MG/ML VIAL IM PRN (15:24)
[2023-11-23] MEDS ORDERED: LOPERAMIDE HCL 2 MG CAPSULE PO PRN (15:24)
[2023-11-23] MEDS ORDERED: BENZONATATE 200 MG CAPSULE PO PRN (15:24)
[2023-11-23] MEDS ORDERED: NALOXONE (NARCAN) HCL 4 MG/0.1 ML SPRAY NS PRN (15:24)
[2023-11-23] MEDS ORDERED: IBUPROFEN 600 MG TABLET (FP) PO PRN (15:24)
[2023-11-23] MEDS ORDERED: IBUPROFEN 400 MG TABLET (FP) PO PRN (15:24)
[2023-11-23] MEDS ORDERED: MAG HYDROX/AL HYDROX/SIMETH 30 ML UNIT-DOSE CUP PO PRN (15:24)
[2023-11-23] MEDS ORDERED: BENZOCAINE/MENTHOL (CHLORASEPTIC ) LOZENGE MM PRN (15:24)
[2023-11-23] MEDS ORDERED: ACETAMINOPHEN 325 MG TABLET (FP) PO PRN (15:24)
[2023-11-23] MEDS ORDERED: guaiFENesin 600 MG TABLET.ER (FP) PO PRN (15:24)
[2023-11-23] MEDS ORDERED: MAGNESIUM HYDROX 2400MG/30ML ORAL SUSPENSION 30 ML CUP PO PRN (15:24)
[2023-11-23] MEDS: PRENATAL VITAMINS W/ FOLIC ACID TABLET (FP) PO SCH (16:57)
[2023-11-23] MEDS: METOPROLOL TARTRATE 25 MG TABLET (FP) PO ONE (19:21)
[2023-11-23] MEDS: MELATONIN 5 MG TABLETS PO SCH (22:37)
[2023-11-23] MEDS: THIAMINE 100 MG TABLET PO SCH (22:37)
[2023-11-24 10:28] LABS: CHLORIDE 108 mmol/L (98-107); POTASSIUM 4.5 mmol/L (3.5-5.1); SODIUM 141 mmol/L (136-145)
[2023-11-24 10:29] LABS: CALCIUM 8.8 mg/dL (8.5-10.1)
[2023-11-24 10:30] LABS: ALBUMIN 2.5 g/dl (3.4-5.0); ANION GAP 7 mmol/L (4-13); BLOOD UREA NITROGEN 15.8 mg/dL (7-18); CO2 25 mmol/L (21-32); GLUCOSE,RANDOM 103 mg/dL (74-106); HEMATOCRIT 36.7 % (35.4-49); HEMOGLOBIN 11.7 GM/dL (11.7-16.9); MCH 26.5 pg (25.7-33.7); MCHC 31.8 g/dl (32.0-35.9); MEAN CELL VOLUME 83.2 fl (80-96); MEAN PLT VOLUME 8.4 fl (7.5-11.1); PLATELET COUNT 376 10^3/uL (134-434); RBC 4.41 M/mm3 (4.00-5.60); RDW 16.9 % (11.9-15.9); WHITE BLOOD COUNT 9.6 K/mm3 (4.0-10.0)
[2023-11-24 10:34] LABS: CREATININE 1.4 mg/dL (0.55-1.3); SGOT/AST 20 U/L (15-37); SGPT/ALT 25 U/L (13-61)
[2023-11-24 10:35] LABS: BILIRUBIN,TOTAL 0.2 mg/dL (0.2-1); TOT PROT 7.8 g/dl (6.4-8.2)
[2023-11-24 10:36] LABS: ALK PHOS 95 U/L (45-117)
[2023-11-24 10:40] LABS: EPI CELLS >36 /uL (0-25.1); HYALINE CASTS 5 /uL (0-3.1); PH,URINE 5.5 (5.0-8.0); URINE APPEARANCE CLEAR; URINE BACTERIA 29 /uL (0-1359); URINE BILIRUBIN NEGATIVE (NEGATIVE); URINE COLOR YELLOW; URINE GLUCOSE (UA) NEGATIVE (NEGATIVE); URINE KETONE NEGATIVE (NEGATIVE); URINE LEUK ESTERASE TRACE (NEGATIVE); URINE NITRITE NEGATIVE (NEGATIVE); URINE PROTEIN 2+ (NEGATIVE); URINE RBC 21 /uL (0-23.9); URINE WBC 146 /uL (0-25.8)
[2023-11-24 11:08] LABS: URINE CRYSTALS FEW CALCIUM OXALATES /hpf
[2023-11-24 11:45] LABS: SYPHILIS W/ RPR CONF NON-REACTIVE (NONREACTIVE)
[2023-11-24] MEDS: TRIAMCINOLONE ACET 0.1% OINT 15 GM TUBE TP SCH (21:33)
[2023-11-24] MEDS: QUEtiapine FUMARATE 100 MG TABLET (FP) PO SCH (21:34)
[2023-11-24] MEDS: hydrOXYzine PAMOATE 25 MG CAPSULE (FP) PO PRN (21:35)
[2023-11-26 09:38] VITALS: BP 147/97; PULSE 118; RESP 20; TEMP 97.6
== END 2023-11-26 11:05 | disposition left against medical advice (07) | DRG 770 ==
LOC: YASAS 13:51 → Y3NR 17:06 → Y3E 11-24 18:35
PROVIDERS: ADMIT Allergy & Immunology; ATTEND Psychiatry & Neurology Pain Medicine
PROC: HZ42ZZZ Group Counseling for Substance Abuse Treatment, Cognitive-Behavioral (ICD-10-PCS; principal; 2023-11-23)
DX: F10.20 Alcohol dependence, uncomplicated (principal); F14.20 Cocaine dependence, uncomplicated; F17.210 Nicotine dependence, cigarettes, uncomplicated; F25.9 Schizoaffective disorder, unspecified; F19.94 Other psychoactive substance use, unspecified with psychoactive substance-induced mood disorder; I10 Essential (primary) hypertension; Z21 Asymptomatic human immunodeficiency virus [HIV] infection status; J45.20 Mild intermittent asthma, uncomplicated; L30.9 Dermatitis, unspecified; Z56.0 Unemployment, unspecified; Z59.00 Homelessness unspecified
CPT/HCPCS: 36415; 71045-TC-FY; 80053; 80305; 80307; 81003; 85027; 86780; 86803; 87811